=== PATIENT | male | born 1980 | race Two or more races ===

== ENCOUNTER 2016-09-12 10:15 | Inpatient (IN) | payer OTHER ==
[~2016-09-12] VITALS: Ht 167.6 cm; Wt 117.9 kg
[~2016-09-12 10:15] MED LIST: ALLA266C2 TP; BACL10TA PO; BACL20TA PO; Cadexomer Iodine TP; Gel Dressing TP; LACT1CAP72 PO; SERT25TA5 PO
[2016-09-12 10:58] LABS: EOSINOPHILS % (AUTO) 0.3 % (0.0-6.0)
[2016-09-12 11:03] LABS: BASOPHILS # (AUTO) 0.2 /CMM (0.0-0.2); BASOPHILS % (AUTO) 1.5 % (0.0-2.0); DIFF TOTAL % 100 %; HEMATOCRIT 47 % (39-51); HEMOGLOBIN 15.7 g/dL (13.5-17.5); LYMPHOCYTES # (AUTO) 1.3 /CMM (0.8-4.8); LYMPHOCYTES % (AUTO) 8.2 % (20.0-44.0); MEAN CORPUSCULAR HEMOGLOBIN 26 PG (26.0-33.0); MEAN CORPUSCULAR HGB CONC 33 g/dl (31.0-36.0); MEAN CORPUSCULAR VOLUME 79 fL (80-96); MONOCYTES # (AUTO) 1.2 /CMM (0.1-1.30); MONOCYTES % (AUTO) 7.7 % (2.0-12.0); NEUTROPHILS # (AUTO) 13.1 /CMM (1.8-8.9); NEUTROPHILS % (AUTO) 82.3 % (43.0-81.0); PLATELET COUNT (AUTO) 482 /CMM (150-450); RED BLOOD CELL COUNT(AUTO) 5.96 MIL/uL (4.5-6.0); WHITE BLOOD COUNT (AUTO) 15.8 K/uL (4.3-11.0)
[2016-09-12 11:07] LABS: CALCIUM, SERUM 8.6 mg/dL (8.5-10.1)
[2016-09-12] MEDS ORDERED: IV SET PRIMARY PUMP SET 1 EA INFUS.SET MC ONE ×2 (12:53→15:54)
[2016-09-12] MEDS ORDERED: IV NS 0.9% 1,000 ML ONE (12:53)
[2016-09-12] MEDS ORDERED: IV NS 0.9% 1,000 ML BAG IV ONE (13:00)
[2016-09-12] MEDS ORDERED: IV NS 0.9% 1,000 ML IV PRN ×2 (13:37→13:40)
[2016-09-12] MEDS ORDERED: MAGNESIUM HYDROXIDE 30 ML UDC PO PRN (14:00)
[2016-09-12] MEDS ORDERED: MAG HYDROX/AL HYDROX/SIMETH 30 ML UDC PO PRN (14:00)
[2016-09-12] MEDS ORDERED: ONDANSETRON HCL/PF 4 MG/2 ML VIAL IVP PRN (14:00)
[2016-09-12] MEDS ORDERED: ACETAMINOPHEN 325 MG TABLET PO PRN (14:00)
[2016-09-12] MEDS ORDERED: Z GUARD REMEDY 2 OZ OINT TP PRN ×2 (14:00)
[2016-09-12] MEDS ORDERED: ZOLPIDEM TARTRATE 5 MG TABLET PO PRN (14:00)
[2016-09-12] MEDS ORDERED: HYDROCODONE/APAP 5/325MG 1 EACH TABLET PO PRN (14:00)
[2016-09-12 14:03] LABS: LYMPHOCYTES % (MANUAL) 6 % (16-48); PLATELET ESTIMATE INCREASED; RBC MORPHOLOGY COMMENT NORMAL RBC MORPH
[2016-09-12] MEDS ORDERED: HYDROMORPHONE 1 MG/1 ML DISP.SYRIN IV PRN (14:30)
[2016-09-12] MEDS: ENOXAPARIN SODIUM 40 MG/0.4 ML DISP.SYRIN SQ SCH (15:00)
[2016-09-12] MEDS ORDERED: VANCOMYCIN 1.5 GM in IV D5W 500 ML IV ONE (15:00)
[2016-09-12] MEDS ORDERED: FEE PK DOSING 1 MIN EA MC ONE (15:08)
[2016-09-12 16:00] VITALS: BP 122/84
[2016-09-12] MEDS ORDERED: SECONDARY IV SET 1 EA INFUS.SET MC ONE (16:07)
[2016-09-12] MEDS: BACLOFEN (10 MG) 10 MG TABLET PO SCH (17:00)
[2016-09-12] MEDS: LACTOBACILLUS RHAMNOSUS GG 1 EACH CAP.SPRINK PO SCH (17:00)
[2016-09-12 20:00] VITALS: BP 130/86
[2016-09-13] MEDS ORDERED: PANTOPRAZOLE 40 MG TABLET.DR PO SCH (07:30)
[2016-09-13 07:39] LABS: BASOPHILS # (AUTO) 0.1 /CMM (0.0-0.2); BASOPHILS % (AUTO) 0.7 % (0.0-2.0); DIFF TOTAL % 100 %; EOSINOPHILS # (AUTO) 0.3 /CMM (0.0-0.7); EOSINOPHILS % (AUTO) 1.9 % (0.0-6.0); HEMATOCRIT 45 % (39-51); HEMOGLOBIN 14.7 g/dL (13.5-17.5); LYMPHOCYTES # (AUTO) 1.9 /CMM (0.8-4.8); LYMPHOCYTES % (AUTO) 14.3 % (20.0-44.0); MEAN CORPUSCULAR HEMOGLOBIN 26 PG (26.0-33.0); MEAN CORPUSCULAR HGB CONC 33 g/dl (31.0-36.0); MEAN CORPUSCULAR VOLUME 80 fL (80-96); MONOCYTES # (AUTO) 0.9 /CMM (0.1-1.30); NEUTROPHILS # (AUTO) 10.2 /CMM (1.8-8.9); NEUTROPHILS % (AUTO) 76.1 % (43.0-81.0); PLATELET COUNT (AUTO) 442 /CMM (150-450); RED BLOOD CELL COUNT(AUTO) 5.55 MIL/uL (4.5-6.0); WHITE BLOOD COUNT (AUTO) 13.4 K/uL (4.3-11.0)
[2016-09-13 08:00] VITALS: BP 123/73
[2016-09-13] MEDS ORDERED: SERTRALINE HCL 25 MG TABLET PO SCH (09:00)
[2016-09-13] MEDS: BACLOFEN (10 MG) 10 MG TABLET PO SCH ×2 (09:50→13:00)
[2016-09-13] MEDS: LACTOBACILLUS RHAMNOSUS GG 1 EACH CAP.SPRINK PO SCH (09:50)
[2016-09-13] MEDS: ENOXAPARIN SODIUM 40 MG/0.4 ML DISP.SYRIN SQ SCH (09:54)
[2016-09-13] MEDS ORDERED: CADEXOMER IODINE 40 GM TUBE TP SCH (10:00)
[2016-09-13] MEDS: VANCOMYCIN 1 GM in IV D5W 250 ML IV SCH ×4 (10:27→16:00)
[2016-09-13 11:17] LABS: CALCIUM, SERUM 8.7 mg/dL (8.5-10.1); CREATININE 0.8 mg/dL (0.6-1.3); PHOSPHORUS 3.4 mg/dL (2.5-4.9); POTASSIUM 4.5 mmol/L (3.5-5.1)
== END 2016-09-13 16:51 | disposition left against medical advice (07) | DRG 720 ==
LOC: ER 10:28 → MED 14:12
PROVIDERS: ADMIT Internal Medicine; ATTEND Internal Medicine
DX: A41.9 Sepsis, unspecified organism (principal); D68.59 Other primary thrombophilia; G82.20 Paraplegia, unspecified; E44.0 Moderate protein-calorie malnutrition; Z68.41 Body mass index [BMI] 40.0-44.9, adult; E66.01 Morbid (severe) obesity due to excess calories; G62.9 Polyneuropathy, unspecified; N31.9 Neuromuscular dysfunction of bladder, unspecified; E87.6 Hypokalemia; F25.9 Schizoaffective disorder, unspecified; M19.90 Unspecified osteoarthritis, unspecified site; Z87.440 Personal history of urinary (tract) infections; Z93.3 Colostomy status; Y24.9XXS Unspecified firearm discharge, undetermined intent, sequela; F19.10 Other psychoactive substance abuse, uncomplicated; L03.116 Cellulitis of left lower limb; L03.115 Cellulitis of right lower limb; S91.302A Unspecified open wound, left foot, initial encounter; S91.301A Unspecified open wound, right foot, initial encounter; X58.XXXA Exposure to other specified factors, initial encounter; Y93.9 Activity, unspecified; Y92.009 Unspecified place in unspecified non-institutional (private) residence as the place of occurrence of the external cause; Y99.9 Unspecified external cause status; M86.8X7 Other osteomyelitis, ankle and foot
CPT/HCPCS: 36415; 73620-TC; 80048-TC; 83605-TC; 83735-TC; 84100-TC; 85025-TC; 87040-TC; 87081-TC; A4606; A6402; A6407; J1650; J3370; J7030; J7060; Z7610

== ENCOUNTER 2016-09-21 17:04 | Emergency (ER) | payer OTHER ==
[~2016-09-21] VITALS: Ht 182.9 cm; Wt 124.7 kg
[~2016-09-21 17:04] MED LIST changes: -BACL10TA PO
[2016-09-21 17:45] LABS: BASOPHILS # (AUTO) 0.2 /CMM (0.0-0.2); BASOPHILS % (AUTO) 2.7 % (0.0-2.0); DIFF TOTAL % 100 %; EOSINOPHILS # (AUTO) 0.3 /CMM (0.0-0.7); EOSINOPHILS % (AUTO) 3.3 % (0.0-6.0); HEMATOCRIT 39 % (39-51); HEMOGLOBIN 12.2 g/dL (13.5-17.5); LYMPHOCYTES # (AUTO) 1.1 /CMM (0.8-4.8); LYMPHOCYTES % (AUTO) 13.1 % (20.0-44.0); MEAN CORPUSCULAR HEMOGLOBIN 26 PG (26.0-33.0); MEAN CORPUSCULAR HGB CONC 31 g/dl (31.0-36.0); MEAN CORPUSCULAR VOLUME 82 fL (80-96); MONOCYTES # (AUTO) 0.7 /CMM (0.1-1.30); MONOCYTES % (AUTO) 8.2 % (2.0-12.0); NEUTROPHILS # (AUTO) 6.3 /CMM (1.8-8.9); NEUTROPHILS % (AUTO) 72.7 % (43.0-81.0); PLATELET COUNT (AUTO) 476 /CMM (150-450); RED BLOOD CELL COUNT(AUTO) 4.75 MIL/uL (4.5-6.0); WHITE BLOOD COUNT (AUTO) 8.6 K/uL (4.3-11.0)
[2016-09-21 17:54] LABS: CALCIUM, SERUM 7.9 mg/dL (8.5-10.1); CREATININE 0.6 mg/dL (0.6-1.3); POTASSIUM 3.5 mmol/L (3.5-5.1)
[2016-09-21] MEDS ORDERED: ONDANSETRON HCL/PF 4 MG/2 ML VIAL IV ONE (18:00)
[2016-09-21] MEDS ORDERED: MORPHINE SULFATE INJ 2 MG/ML DISP.SYRIN IV ONE (18:00)
[2016-09-21] MEDS ORDERED: MORPHINE SULFATE INJ 4 MG/ML DISP.SYRIN ONE (18:42)
[2016-09-21] MEDS ORDERED: ONDANSETRON HCL/PF 4 MG/2 ML VIAL ONE (18:42)
[2016-09-21 20:55] VITALS: BP 150/79
== END 2016-09-21 20:55 | disposition home or self-care (01) ==
LOC: ER 17:05
DX: S91.302A Unspecified open wound, left foot, initial encounter (principal); S91.301A Unspecified open wound, right foot, initial encounter; G82.20 Paraplegia, unspecified; F25.9 Schizoaffective disorder, unspecified; N31.9 Neuromuscular dysfunction of bladder, unspecified; L89.629 Pressure ulcer of left heel, unspecified stage; L89.619 Pressure ulcer of right heel, unspecified stage; Z93.3 Colostomy status
CPT/HCPCS: 36415; 73630 ×2; 80048; 85025; 85652; 96374; 96375; 99285; A4606; J2270; J2405; Z7610

== ENCOUNTER 2016-10-17 15:00 | Emergency (ER) | payer OTHER ==
[~2016-10-17] VITALS: Ht 177.8 cm; Wt 113.4 kg
[2016-10-17 15:45] LABS: BASOPHILS % (AUTO) 0.2 % (0.0-2.0); DIFF TOTAL % 100 %; EOSINOPHILS # (AUTO) 0.1 /CMM (0.0-0.7); EOSINOPHILS % (AUTO) 0.6 % (0.0-6.0); HEMATOCRIT 44 % (39-51); HEMOGLOBIN 14.4 g/dL (13.5-17.5); MEAN CORPUSCULAR HEMOGLOBIN 26 PG (26.0-33.0); MEAN CORPUSCULAR HGB CONC 33 g/dl (31.0-36.0); MEAN CORPUSCULAR VOLUME 79 fL (80-96); MONOCYTES # (AUTO) 0.6 /CMM (0.1-1.30); MONOCYTES % (AUTO) 3.8 % (2.0-12.0); NEUTROPHILS # (AUTO) 12.8 /CMM (1.8-8.9); NEUTROPHILS % (AUTO) 88.4 % (43.0-81.0); PLATELET COUNT (AUTO) 739 /CMM (150-450); RED BLOOD CELL COUNT(AUTO) 5.55 MIL/uL (4.5-6.0); WHITE BLOOD COUNT (AUTO) 14.5 K/uL (4.3-11.0)
[2016-10-17 16:00] LABS: ANION GAP 17 (5-14); CALCIUM, SERUM 8.9 mg/dL (8.5-10.1); CARBON DIOXIDE 25 mmol/L (21-32); CHLORIDE 101 mmol/L (98-107); GFR 85 mL/min (>60); GLUCOSE 106 mg/dL (74-106); POTASSIUM 3.7 mmol/L (3.5-5.1); SODIUM SERUM 139 mmol/L (136-145); UREA NITROGEN, BLOOD 17 mg/dL (7-18)
[2016-10-17 16:16] LABS: ALANINE AMINOTRANSFERASE 29 U/L (12-78); ALBUMIN 3.5 g/dL (3.4-5.0); ASPARTATE AMINOTRANSFERASE 39 U/L (15-37); BILIRUBIN,DIRECT 0.1 mg/dL (0.0-0.2); BILIRUBIN,TOTAL 0.7 mg/dL (0.2-1.0); INDIRECT BILIRUBIN 0.6 mg/dL (0.0-1.1); TOTAL PROTEIN, SERUM 9.3 g/dL (6.4-8.2)
[2016-10-17 16:20] LABS: ACETAMINOPHEN 0 ug/ml (10-30); SALICYLATE 1.5 mg/dL (2.8-20.0)
[2016-10-17 16:28] LABS: BASOPHILS % (MANUAL) 0 % (0.0-2.0); EOSINOPHILS % (MANUAL) 0 % (0-4); LYMPHOCYTES % (MANUAL) 9 % (16-48)
[2016-10-17 16:29] LABS: ANISOCYTOSIS 1+; HYPOCHROMASIA 1+; PLATELET ESTIMATE INCREASED; RBC MORPHOLOGY COMMENT NORMAL RBC MORPH
[2016-10-17] MEDS ORDERED: LORAZEPAM INJ 2 MG/ML VIAL IV ONE ×2 (16:30→18:00)
[2016-10-17] MEDS ORDERED: LORAZEPAM INJ 2 MG/ML VIAL ONE ×2 (16:47→17:43)
[2016-10-17] MEDS ORDERED: LORAZEPAM INJ 2 MG/ML VIAL IVP ONE (17:00)
[2016-10-17] MEDS ORDERED: IV NS 0.9% 1,000 ML ONE (17:43)
[2016-10-17] MEDS ORDERED: IV SET PRIMARY 1 EA INFUS.SET MC ONE (17:43)
[2016-10-17] MEDS ORDERED: IV NS 0.9% 1,000 ML BAG IV ONE (18:00)
[2016-10-17 19:34] LABS: KETONES,URINE 40 (NEGATIVE); LEUKOCYTE ESTERASE ,URINE Small (NEGATIVE); PH,URINE 5.5 (5.0-8.0)
[2016-10-17 19:40] LABS: CANNABINOID, URINE NEGATIVE (NEGATIVE); PHENCYCLIDINE SCREEN,URINE NEGATIVE (NEGATIVE)
[2016-10-17 19:41] LABS: ADD UA MICROSCOPIC YES
[2016-10-17 19:50] LABS: ADD URINE CULTURE YES
[2016-10-18 10:35] VITALS: BP 138/78
== END 2016-10-18 10:36 | disposition home or self-care (01) ==
LOC: ER 15:01
DX: F10.129 Alcohol abuse with intoxication, unspecified (principal); R31.29 Other microscopic hematuria; F15.10 Other stimulant abuse, uncomplicated; D72.829 Elevated white blood cell count, unspecified; G82.20 Paraplegia, unspecified; Z93.3 Colostomy status
CPT/HCPCS: 36415; 80048-TC; 80076-TC; 80305; 81000-TC; 85025-TC; 87086-TC; A4606; G6038-TC; G6039-TC; G6040-TC; J2060; J7030; Z7610

== ENCOUNTER 2016-10-22 14:45 | Inpatient (IN) | payer OTHER ==
[~2016-10-22] VITALS: Ht 180.3 cm; Wt 90.7 kg
[2016-10-22 14:59] LABS: BASOPHILS # (AUTO) 0.5 /CMM (0.0-0.2); BASOPHILS % (AUTO) 4.7 % (0.0-2.0); DIFF TOTAL % 100 %; EOSINOPHILS # (AUTO) 0.1 /CMM (0.0-0.7); EOSINOPHILS % (AUTO) 0.7 % (0.0-6.0); HEMATOCRIT 39 % (39-51); HEMOGLOBIN 12.2 g/dL (13.5-17.5); LYMPHOCYTES # (AUTO) 1.8 /CMM (0.8-4.8); LYMPHOCYTES % (AUTO) 15.6 % (20.0-44.0); MEAN CORPUSCULAR HEMOGLOBIN 25 PG (26.0-33.0); MEAN CORPUSCULAR HGB CONC 32 g/dl (31.0-36.0); MEAN CORPUSCULAR VOLUME 80 fL (80-96); MONOCYTES % (AUTO) 8.3 % (2.0-12.0); NEUTROPHILS # (AUTO) 8.3 /CMM (1.8-8.9); NEUTROPHILS % (AUTO) 70.7 % (43.0-81.0); PLATELET COUNT (AUTO) 630 /CMM (150-450); RED BLOOD CELL COUNT(AUTO) 4.84 MIL/uL (4.5-6.0); WHITE BLOOD COUNT (AUTO) 11.7 K/uL (4.3-11.0)
[2016-10-22] MEDS ORDERED: LORAZEPAM INJ 2 MG/ML VIAL IVP ONE (15:00)
[2016-10-22] MEDS ORDERED: IV NS 0.9% 1,000 ML BAG IV ONE (15:00)
[2016-10-22 15:09] LABS: ANION GAP 15 (5-14); CALCIUM, SERUM 8.7 mg/dL (8.5-10.1); CARBON DIOXIDE 25 mmol/L (21-32); CHLORIDE 103 mmol/L (98-107); CREATININE 0.6 mg/dL (0.6-1.3); GFR 153 mL/min (>60); GLUCOSE 120 mg/dL (74-106); POTASSIUM 3.4 mmol/L (3.5-5.1); SODIUM SERUM 140 mmol/L (136-145); UREA NITROGEN, BLOOD 6 mg/dL (7-18)
[2016-10-22] MEDS ORDERED: LORAZEPAM INJ 2 MG/ML VIAL ONE ×2 (15:52→19:04)
[2016-10-22] MEDS ORDERED: IV SET PRIMARY 1 EA INFUS.SET MC ONE (15:52)
[2016-10-22] MEDS ORDERED: IV NS 0.9% 1,000 ML ONE (15:52)
[2016-10-22] MEDS ORDERED: ACETAMINOPHEN ES 500 MG TABLET PO ONE (16:30)
[2016-10-22 17:28] LABS: KETONES,URINE Trace (NEGATIVE); LEUKOCYTE ESTERASE ,URINE Trace (NEGATIVE); PH,URINE 6.5 (5.0-8.0)
[2016-10-22 17:34] LABS: ADD UA MICROSCOPIC YES; CANNABINOID, URINE NEGATIVE (NEGATIVE); PHENCYCLIDINE SCREEN,URINE NEGATIVE (NEGATIVE)
[2016-10-22 17:37] LABS: ADD URINE CULTURE YES
[2016-10-22] MEDS ORDERED: CEFTRIAXONE 1 G in IV D5W 50 ML IV ONE (18:00)
[2016-10-22] MEDS ORDERED: CEFTRIAXONE 1GM BAG (ER ONLY) 50 ML IV ONE (18:08)
[2016-10-22] MEDS ORDERED: IV SET PRIMARY PUMP SET 1 EA INFUS.SET MC ONE ×2 (18:08→22:47)
[2016-10-22] MEDS ORDERED: SERT25TA PO (18:49)
[2016-10-22] MEDS ORDERED: CIPR500T5 PO (18:49)
[2016-10-22] MEDS ORDERED: LACT1CAP72 PO (18:49)
[2016-10-22] MEDS ORDERED: LORAZEPAM INJ 2 MG/ML VIAL IV ONE (19:00)
[2016-10-22] MEDS ORDERED: Z GUARD REMEDY 2 OZ OINT TP PRN (20:00)
[2016-10-22] MEDS ORDERED: ONDANSETRON HCL/PF 4 MG/2 ML VIAL IVP PRN (20:00)
[2016-10-22] MEDS ORDERED: MAGNESIUM HYDROXIDE 30 ML UDC PO PRN (20:00)
[2016-10-22] MEDS ORDERED: MAG HYDROX/AL HYDROX/SIMETH 30 ML UDC PO PRN (20:00)
[2016-10-22] MEDS ORDERED: ENOXAPARIN SODIUM 30 MG/0.3 ML DISP.SYRIN SQ SCH (20:00)
[2016-10-22] MEDS ORDERED: VANCOMYCIN 1 GM in IV D5W 250 ML IV ONE (20:00)
[2016-10-22 21:00] VITALS: BP 149/59
[2016-10-22] MEDS ORDERED: LORAZEPAM INJ 2 MG/ML VIAL IV PRN (21:00)
[2016-10-22] MEDS ORDERED: VANCOMYCIN 1.25 GM in IV D5W 500 ML IV SCH (21:00)
[2016-10-22] MEDS ORDERED: POTASSIUM CHLORIDE 20 MEQ POWDER PACKET PO ONE (21:00)
[2016-10-22] MEDS ORDERED: FEE PK DOSING 1 MIN EA MC ONE (21:49)
[2016-10-22] MEDS ORDERED: VANCOMYCIN 1 GM in IV D5W 250 ML IV SCH (22:00)
[2016-10-22] MEDS ORDERED: IV NS 0.9% 250 ML IV ONE (22:47)
[2016-10-22] MEDS ORDERED: SECONDARY IV SET 1 EA INFUS.SET MC ONE (22:47)
[2016-10-22] MEDS: MEROPENEM 1 G in IV NS 0.9% 100 ML IV SCH (22:58)
[2016-10-22] MEDS: IV NS 0.9% 1,000 ML IV PRN (22:58)
[2016-10-22] MEDS: ENOXAPARIN SODIUM 40 MG/0.4 ML DISP.SYRIN SQ SCH (23:00)
[2016-10-23] MEDS ORDERED: SECONDARY IV SET 1 EA INFUS.SET MC ONE ×2 (01:21→13:39)
[2016-10-23] MEDS: MEROPENEM 1 G in IV NS 0.9% 100 ML IV SCH ×3 (04:29→23:09)
[2016-10-23 08:00] VITALS: BP 93/62
[2016-10-23 08:00] LABS: BASOPHILS # (AUTO) 0.1 /CMM (0.0-0.2); BASOPHILS % (AUTO) 0.6 % (0.0-2.0); DIFF TOTAL % 100 %; EOSINOPHILS # (AUTO) 0.3 /CMM (0.0-0.7); EOSINOPHILS % (AUTO) 3.4 % (0.0-6.0); HEMATOCRIT 35 % (39-51); HEMOGLOBIN 11.6 g/dL (13.5-17.5); LYMPHOCYTES # (AUTO) 1.6 /CMM (0.8-4.8); LYMPHOCYTES % (AUTO) 16.5 % (20.0-44.0); MEAN CORPUSCULAR HEMOGLOBIN 27 PG (26.0-33.0); MEAN CORPUSCULAR HGB CONC 33 g/dl (31.0-36.0); MEAN CORPUSCULAR VOLUME 80 fL (80-96); MONOCYTES # (AUTO) 0.9 /CMM (0.1-1.30); MONOCYTES % (AUTO) 9.3 % (2.0-12.0); NEUTROPHILS # (AUTO) 6.7 /CMM (1.8-8.9); NEUTROPHILS % (AUTO) 70.2 % (43.0-81.0); PLATELET COUNT (AUTO) 522 /CMM (150-450); WHITE BLOOD COUNT (AUTO) 9.5 K/uL (4.3-11.0)
[2016-10-23 08:16] LABS: CALCIUM, SERUM 8.1 mg/dL (8.5-10.1); CREATININE 0.7 mg/dL (0.6-1.3); PHOSPHORUS 3.7 mg/dL (2.5-4.9); POTASSIUM 3.3 mmol/L (3.5-5.1)
[2016-10-23] MEDS: LACTOBACILLUS RHAMNOSUS GG 1 EACH CAP.SPRINK PO SCH ×2 (09:41→17:24)
[2016-10-23] MEDS: SERTRALINE HCL 25 MG TABLET PO SCH (09:41)
[2016-10-23] MEDS: PANTOPRAZOLE 40 MG TABLET.DR PO SCH (09:41)
[2016-10-23] MEDS: VANCOMYCIN 1 GM in IV D5W 250 ML IV SCH ×2 (10:19→17:24)
[2016-10-23] MEDS ORDERED: POTASSIUM CHLORIDE 20 MEQ POWDER PACKET GT ONE (12:00)
[2016-10-23] MEDS: HYDROGEL DRESSING 90 GM TUBE TP SCH (13:20)
[2016-10-23] MEDS: DAKINS QUARTER STRENGTH (0.125%) 480 ML BOTTLE TOP SCH (13:20)
[2016-10-23] MEDS: IV NS 0.9% 1,000 ML IV PRN (15:05)
[2016-10-23 16:08] VITALS: BP 135/72
[2016-10-23] MEDS: HYDROCODONE/APAP 5/325MG 1 EACH TABLET PO PRN (17:29)
[2016-10-23 20:32] VITALS: BP 108/70
[2016-10-23] MEDS: ENOXAPARIN SODIUM 40 MG/0.4 ML DISP.SYRIN SQ SCH (23:10)
[2016-10-24] MEDS: ZOLPIDEM TARTRATE 5 MG TABLET PO PRN ×2 (00:17→21:28)
[2016-10-24] MEDS: VANCOMYCIN 1 GM in IV D5W 250 ML IV SCH ×2 (02:48→10:31)
[2016-10-24] MEDS: MEROPENEM 1 G in IV NS 0.9% 100 ML IV SCH ×3 (06:20→21:26)
[2016-10-24] MEDS: ACETAMINOPHEN 325 MG TABLET PO PRN (06:20)
[2016-10-24 06:52] LABS: BASOPHILS # (AUTO) 0.1 /CMM (0.0-0.2); DIFF TOTAL % 100 %; EOSINOPHILS # (AUTO) 0.4 /CMM (0.0-0.7); EOSINOPHILS % (AUTO) 6.5 % (0.0-6.0); HEMATOCRIT 34 % (39-51); HEMOGLOBIN 11.1 g/dL (13.5-17.5); LYMPHOCYTES # (AUTO) 1.5 /CMM (0.8-4.8); MEAN CORPUSCULAR HEMOGLOBIN 27 PG (26.0-33.0); MEAN CORPUSCULAR HGB CONC 33 g/dl (31.0-36.0); MEAN CORPUSCULAR VOLUME 80 fL (80-96); MONOCYTES # (AUTO) 0.6 /CMM (0.1-1.30); MONOCYTES % (AUTO) 9.5 % (2.0-12.0); NEUTROPHILS # (AUTO) 3.5 /CMM (1.8-8.9); PLATELET COUNT (AUTO) 455 /CMM (150-450); RED BLOOD CELL COUNT(AUTO) 4.18 MIL/uL (4.5-6.0)
[2016-10-24] MEDS ORDERED: IV NS 0.9% 1,000 ML ONE (06:55)
[2016-10-24 06:58] LABS: CALCIUM, SERUM 8.2 mg/dL (8.5-10.1); CREATININE 0.5 mg/dL (0.6-1.3); POTASSIUM 3.7 mmol/L (3.5-5.1)
[2016-10-24] MEDS: IV NS 0.9% 1,000 ML IV PRN (07:04)
[2016-10-24 08:00] VITALS: BP 109/61
[2016-10-24] MEDS: SERTRALINE HCL 25 MG TABLET PO SCH (08:46)
[2016-10-24] MEDS: LACTOBACILLUS RHAMNOSUS GG 1 EACH CAP.SPRINK PO SCH ×2 (08:46→17:46)
[2016-10-24] MEDS: PANTOPRAZOLE 40 MG TABLET.DR PO SCH (08:46)
[2016-10-24] MEDS: DAKINS QUARTER STRENGTH (0.125%) 480 ML BOTTLE TOP SCH (08:47)
[2016-10-24] MEDS: HYDROGEL DRESSING 90 GM TUBE TP SCH (08:47)
[2016-10-24 16:00] VITALS: BP 123/69
[2016-10-24] MEDS: VANCOMYCIN 1.25 GM in IV D5W 500 ML IV SCH (17:48)
[2016-10-24 20:00] VITALS: BP 126/58
[2016-10-24] MEDS: ENOXAPARIN SODIUM 40 MG/0.4 ML DISP.SYRIN SQ SCH (21:27)
[2016-10-25] MEDS: VANCOMYCIN 1.25 GM in IV D5W 500 ML IV SCH ×3 (01:22→18:58)
[2016-10-25] MEDS: IV NS 0.9% 1,000 ML IV PRN ×2 (01:24→22:32)
[2016-10-25] MEDS: ACETAMINOPHEN 325 MG TABLET PO PRN ×2 (04:11→13:13)
[2016-10-25] MEDS: MEROPENEM 1 G in IV NS 0.9% 100 ML IV SCH ×3 (04:11→20:36)
[2016-10-25 07:37] LABS: CALCIUM, SERUM 8.3 mg/dL (8.5-10.1); CREATININE 0.6 mg/dL (0.6-1.3); POTASSIUM 4.1 mmol/L (3.5-5.1)
[2016-10-25 08:00] VITALS: BP 115/64
[2016-10-25] MEDS: LACTOBACILLUS RHAMNOSUS GG 1 EACH CAP.SPRINK PO SCH ×2 (08:33→17:59)
[2016-10-25] MEDS: PANTOPRAZOLE 40 MG TABLET.DR PO SCH (08:33)
[2016-10-25] MEDS: SERTRALINE HCL 25 MG TABLET PO SCH (08:33)
[2016-10-25] MEDS: DAKINS QUARTER STRENGTH (0.125%) 480 ML BOTTLE TOP SCH (08:35)
[2016-10-25] MEDS: HYDROGEL DRESSING 90 GM TUBE TP SCH (08:35)
[2016-10-25] MEDS ORDERED: AMOX-428 PO (09:03)
[2016-10-25 16:00] VITALS: BP_SYST 123
[2016-10-25] MEDS: BACLOFEN (10 MG) 10 MG TABLET PO SCH (17:59)
[2016-10-25 20:00] VITALS: BP 124/75
[2016-10-25] MEDS: ENOXAPARIN SODIUM 40 MG/0.4 ML DISP.SYRIN SQ SCH (20:37)
[2016-10-25] MEDS: ZOLPIDEM TARTRATE 5 MG TABLET PO PRN (22:32)
[2016-10-26] MEDS: VANCOMYCIN 1.25 GM in IV D5W 500 ML IV SCH ×2 (03:03→10:01)
[2016-10-26] MEDS: MEROPENEM 1 G in IV NS 0.9% 100 ML IV SCH ×3 (04:43→21:01)
[2016-10-26 08:00] VITALS: BP 120/67
[2016-10-26 08:06] LABS: CALCIUM, SERUM 8.1 mg/dL (8.5-10.1); CREATININE 0.6 mg/dL (0.6-1.3)
[2016-10-26] MEDS: SERTRALINE HCL 25 MG TABLET PO SCH (08:11)
[2016-10-26] MEDS: LACTOBACILLUS RHAMNOSUS GG 1 EACH CAP.SPRINK PO SCH ×2 (08:11→16:29)
[2016-10-26] MEDS: PANTOPRAZOLE 40 MG TABLET.DR PO SCH (08:11)
[2016-10-26] MEDS: BACLOFEN (10 MG) 10 MG TABLET PO SCH ×3 (08:11→16:29)
[2016-10-26] MEDS: DAKINS QUARTER STRENGTH (0.125%) 480 ML BOTTLE TOP SCH (08:14)
[2016-10-26] MEDS: HYDROGEL DRESSING 90 GM TUBE TP SCH (08:14)
[2016-10-26] MEDS: ACETAMINOPHEN 325 MG TABLET PO PRN (10:28)
[2016-10-26 16:00] VITALS: BP 110/56
[2016-10-26 20:00] VITALS: BP 119/63
[2016-10-26 20:34] VITALS: BP 119/63
[2016-10-26] MEDS: ENOXAPARIN SODIUM 40 MG/0.4 ML DISP.SYRIN SQ SCH (21:02)
[2016-10-26] MEDS: HYDROCODONE/APAP 5/325MG 1 EACH TABLET PO PRN (21:26)
[2016-10-26] MEDS: ZOLPIDEM TARTRATE 5 MG TABLET PO PRN (21:58)
[2016-10-27] MEDS: IV NS 0.9% 1,000 ML IV PRN ×2 (02:22→17:10)
[2016-10-27] MEDS: MEROPENEM 1 G in IV NS 0.9% 100 ML IV SCH ×3 (05:43→20:56)
[2016-10-27 07:19] LABS: CALCIUM, SERUM 8.4 mg/dL (8.5-10.1); CREATININE 0.6 mg/dL (0.6-1.3); POTASSIUM 4.1 mmol/L (3.5-5.1)
[2016-10-27 08:00] VITALS: BP 110/69
[2016-10-27] MEDS: LACTOBACILLUS RHAMNOSUS GG 1 EACH CAP.SPRINK PO SCH ×2 (08:14→16:17)
[2016-10-27] MEDS: PANTOPRAZOLE 40 MG TABLET.DR PO SCH (08:14)
[2016-10-27] MEDS: BACLOFEN (10 MG) 10 MG TABLET PO SCH ×3 (08:14→16:17)
[2016-10-27] MEDS: SERTRALINE HCL 25 MG TABLET PO SCH (08:15)
[2016-10-27] MEDS: VANCOMYCIN 1 GM in IV D5W 250 ML IV SCH ×2 (11:11→17:09)
[2016-10-27] MEDS: ACETAMINOPHEN 325 MG TABLET PO PRN (13:34)
[2016-10-27] MEDS: DAKINS QUARTER STRENGTH (0.125%) 480 ML BOTTLE TOP SCH (15:41)
[2016-10-27] MEDS: HYDROGEL DRESSING 90 GM TUBE TP SCH (15:42)
[2016-10-27 16:00] VITALS: BP 109/64
[2016-10-27] MEDS ORDERED: BOOST PLUS FOOD-CHOCLATE 237 ML BOX PO SCH (17:00)
[2016-10-27] MEDS: HYDROCODONE/APAP 5/325MG 1 EACH TABLET PO PRN (17:09)
[2016-10-27 20:39] VITALS: BP 111/66
[2016-10-27] MEDS: ENOXAPARIN SODIUM 40 MG/0.4 ML DISP.SYRIN SQ SCH (21:02)
[2016-10-28] MEDS ORDERED: SECONDARY IV SET 1 EA INFUS.SET MC ONE (00:30)
[2016-10-28] MEDS: ZOLPIDEM TARTRATE 5 MG TABLET PO PRN ×2 (00:35→22:10)
[2016-10-28] MEDS: VANCOMYCIN 1 GM in IV D5W 250 ML IV SCH ×3 (02:57→17:35)
[2016-10-28] MEDS: MEROPENEM 1 G in IV NS 0.9% 100 ML IV SCH ×3 (05:43→21:59)
[2016-10-28 07:53] LABS: CALCIUM, SERUM 8.7 mg/dL (8.5-10.1); CREATININE 0.6 mg/dL (0.6-1.3); POTASSIUM 4.3 mmol/L (3.5-5.1)
[2016-10-28 08:00] VITALS: BP 108/69
[2016-10-28] MEDS: IV NS 0.9% 1,000 ML IV PRN (08:32)
[2016-10-28] MEDS: LACTOBACILLUS RHAMNOSUS GG 1 EACH CAP.SPRINK PO SCH ×2 (08:33→16:35)
[2016-10-28] MEDS: SERTRALINE HCL 25 MG TABLET PO SCH (08:33)
[2016-10-28] MEDS: PANTOPRAZOLE 40 MG TABLET.DR PO SCH (08:33)
[2016-10-28] MEDS: BACLOFEN (10 MG) 10 MG TABLET PO SCH ×3 (08:33→16:35)
[2016-10-28] MEDS: HYDROGEL DRESSING 90 GM TUBE TP SCH (08:39)
[2016-10-28] MEDS: DAKINS QUARTER STRENGTH (0.125%) 480 ML BOTTLE TOP SCH (08:40)
[2016-10-28] MEDS: ACETAMINOPHEN 325 MG TABLET PO PRN (12:26)
[2016-10-28 16:00] VITALS: BP 115/72
[2016-10-28 20:00] VITALS: BP 123/71
[2016-10-28] MEDS: ENOXAPARIN SODIUM 40 MG/0.4 ML DISP.SYRIN SQ SCH (22:00)
[2016-10-29] MEDS: VANCOMYCIN 1.25 GM in IV D5W 500 ML IV SCH ×3 (01:59→18:18)
[2016-10-29] MEDS: IV NS 0.9% 1,000 ML IV PRN (02:10)
[2016-10-29] MEDS: MEROPENEM 1 G in IV NS 0.9% 100 ML IV SCH ×2 (05:14→12:55)
[2016-10-29 07:03] LABS: CALCIUM, SERUM 8.5 mg/dL (8.5-10.1); CREATININE 0.6 mg/dL (0.6-1.3); POTASSIUM 4.2 mmol/L (3.5-5.1)
[2016-10-29 08:00] VITALS: BP 117/72
[2016-10-29] MEDS: SERTRALINE HCL 25 MG TABLET PO SCH (08:04)
[2016-10-29] MEDS: PANTOPRAZOLE 40 MG TABLET.DR PO SCH (08:04)
[2016-10-29] MEDS: LACTOBACILLUS RHAMNOSUS GG 1 EACH CAP.SPRINK PO SCH ×2 (08:04→16:13)
[2016-10-29] MEDS: BACLOFEN (10 MG) 10 MG TABLET PO SCH ×3 (08:04→16:13)
[2016-10-29] MEDS: HYDROGEL DRESSING 90 GM TUBE TP SCH (08:05)
[2016-10-29] MEDS: DAKINS QUARTER STRENGTH (0.125%) 480 ML BOTTLE TOP SCH (08:06)
[2016-10-29] MEDS: ACETAMINOPHEN 325 MG TABLET PO PRN ×2 (09:57→20:34)
[2016-10-29 16:00] VITALS: BP 123/81
[2016-10-29 20:00] VITALS: BP 113/67
[2016-10-29 20:02] VITALS: BP 113/67
[2016-10-29] MEDS: ENOXAPARIN SODIUM 40 MG/0.4 ML DISP.SYRIN SQ SCH (20:34)
== END 2016-10-30 | disposition home or self-care (01) | DRG 344 ==
LOC: ER 14:48 → MED 20:01
PROVIDERS: ADMIT Nurse Practitioner Acute Care; ATTEND Nurse Practitioner Acute Care
DX: M86.8X6 Other osteomyelitis, lower leg (principal); L89.154 Pressure ulcer of sacral region, stage 4; G82.20 Paraplegia, unspecified; D68.59 Other primary thrombophilia; L03.115 Cellulitis of right lower limb; N39.0 Urinary tract infection, site not specified; L03.116 Cellulitis of left lower limb; F10.10 Alcohol abuse, uncomplicated; F15.10 Other stimulant abuse, uncomplicated; L97.529 Non-pressure chronic ulcer of other part of left foot with unspecified severity; G62.9 Polyneuropathy, unspecified; F17.210 Nicotine dependence, cigarettes, uncomplicated; E87.6 Hypokalemia; N31.9 Neuromuscular dysfunction of bladder, unspecified; Z93.3 Colostomy status; Z74.01 Bed confinement status; F25.9 Schizoaffective disorder, unspecified; D50.9 Iron deficiency anemia, unspecified; E66.9 Obesity, unspecified; M85.80 Other specified disorders of bone density and structure, unspecified site; Z87.440 Personal history of urinary (tract) infections; Z91.19 Patient's noncompliance with other medical treatment and regimen; Z99.3 Dependence on wheelchair; B96.1 Klebsiella pneumoniae [K. pneumoniae] as the cause of diseases classified elsewhere; B95.2 Enterococcus as the cause of diseases classified elsewhere
CPT/HCPCS: 36415; 71010-TC; 80048-TC; 80202-TC; 80305; 81000-TC; 83735-TC; 84100-TC; 85025-TC; 87081-TC; 87086-TC; 87186-TC; 93925-TC; A4217; A4606; A6248; A6253; A6402; A6403; A9503; G0480; J0696; J1650; J2060; J2185; J3370; J7030; J7050; J7060; Z7610

== ENCOUNTER 2017-03-26 08:48 | Inpatient (IN) | payer MEDICAID, OTHER ==
[~2017-03-26] VITALS: Ht 177.8 cm; Wt 123.8 kg
[~2017-03-26 08:48] MED LIST changes: -ALLA266C2 TP; +AMOX-428 PO; -BACL20TA PO; +CIPR500T5 PO; -Cadexomer Iodine TP; -Gel Dressing TP; +SERT25TA PO; -SERT25TA5 PO
--- NOTE | 2017-03-26 08:55 | NUR ---
PATIENT BIB [facility] C/O ABDOMINAL PAIN S/P ALCOHOL AND METH USE. PATIENT IS A/OX 4. BREATHING EVEN AND UNLABORED. PATIENT IS TACHYCARDIC. BLOOD PRESSURE WNL. SAFETY AND COMFORT MEASURES IN PLACE. AWAITING MD ORDERS.
--- NOTE | 2017-03-26 09:15 | NUR ---
NEW IV STARTED RIGHT AC, 20 G. BLOOD DRAWN AND SENT TO LAB.
[2017-03-26] MEDS ORDERED: IV SET PRIMARY 1 EA INFUS.SET MC ONE (09:19)
[2017-03-26] MEDS ORDERED: IV NS 0.9% 1,000 ML ONE (09:19)
--- NOTE | 2017-03-26 09:21 | NUR ---
GLASS INSPECTOR AT BEDSIDE.
[2017-03-26] MEDS ORDERED: ACETAMINOPHEN ES 500 MG TABLET ONE (09:22)
[2017-03-26 09:29] LABS: CALCIUM, SERUM 8.2 mg/dL (8.5-10.1); CARBON DIOXIDE 26 mmol/L (21-32); CHLORIDE 103 mmol/L (98-107); GLUCOSE 163 mg/dL (74-106); POTASSIUM 3.9 mmol/L (3.5-5.1); SODIUM SERUM 140 mmol/L (136-145); UREA NITROGEN, BLOOD 9 mg/dL (7-18)
[2017-03-26] MEDS ORDERED: ACETAMINOPHEN 325 MG TABLET PO ONE (09:30)
[2017-03-26] MEDS ORDERED: IV NS 0.9% 1,000 ML BAG IV ONE ×2 (09:30)
[2017-03-26] MEDS ORDERED: IV SET PRIMARY PUMP SET 1 EA INFUS.SET MC ONE (09:40)
[2017-03-26] MEDS ORDERED: SECONDARY IV SET 1 EA INFUS.SET MC ONE ×2 (09:40→17:56)
[2017-03-26 09:42] LABS: ALANINE AMINOTRANSFERASE 60 U/L (12-78); ALBUMIN 3.2 g/dL (3.4-5.0); ALCOHOL, BLOOD < 3 mg/dL (0-0); ALKALINE PHOSPHATASE 162 U/L (46-116); ASPARTATE AMINOTRANSFERASE 40 U/L (15-37); BILIRUBIN,DIRECT 0.1 mg/dL (0.0-0.2); BILIRUBIN,TOTAL 0.4 mg/dL (0.2-1.0); TOTAL PROTEIN, SERUM 9.4 g/dL (6.4-8.2)
[2017-03-26 09:56] LABS: BASOPHILS # (AUTO) 0.1 /CMM (0.0-0.2); BASOPHILS % (AUTO) 0.7 % (0.0-2.0); EOSINOPHILS % (AUTO) 0.1 % (0.0-6.0); HEMATOCRIT 42 % (39-51); HEMOGLOBIN 13.5 g/dL (13.5-17.5); LYMPHOCYTES # (AUTO) 1.4 /CMM (0.8-4.8); LYMPHOCYTES % (AUTO) 7.8 % (20.0-44.0); MEAN CORPUSCULAR HEMOGLOBIN 23 PG (26.0-33.0); MEAN CORPUSCULAR HGB CONC 32 g/dl (31.0-36.0); MEAN CORPUSCULAR VOLUME 72 fL (80-96); MONOCYTES # (AUTO) 1.3 /CMM (0.1-1.30); NEUTROPHILS # (AUTO) 15.1 /CMM (1.8-8.9); NEUTROPHILS % (AUTO) 84.4 % (43.0-81.0); PLATELET COUNT (AUTO) 630 /CMM (150-450); RDW COEFFICIENT OF VARIATION 23.6 (11.5-15.0)
[2017-03-26] MEDS ORDERED: VANCOMYCIN 1 GM in IV D5W 250 ML IV ONE ×2 (10:00→11:30)
[2017-03-26] MEDS ORDERED: PIPERACILLIN /TAZOBACTAM 3.375 G in IV D5W 50 ML IV ONE (10:00)
[2017-03-26 10:04] LABS: APPEARANCE,URINE CLOUDY (CLEAR); BILIRUBIN,URINE NEGATIVE (NEGATIVE); BLOOD, URINE 2+ Ery/uL (NEGATIVE); COLOR,URINE YELLOW (YELLOW); KETONES,URINE NEGATIVE (NEGATIVE); LEUKOCYTE ESTERASE ,URINE NEGATIVE (NEGATIVE); NITRITE, URINE POSITIVE (NEGATIVE); PH,URINE 5.5 (5.0-8.0); PROTEIN,URINE 2+ mg/dl (NEGATIVE); UGLUCOSE NEGATIVE (NEGATIVE); UROBILINOGEN,URINE 0.2 EU/dL (0.2)
[2017-03-26 10:13] LABS: LYMPHOCYTES % (MANUAL) 13 % (16-48); MONOCYTES % (MANUAL) 8 % (0-11.0); NEUTROPHILS % (MANUAL) 79 (42-76)
[2017-03-26 10:21] LABS: BACTERIA,URINE 2+ /HPF (None Seen); SQUAMOUS EPITHELIAL CELL,UR Few /HPF (None Seen)
[2017-03-26 11:00] VITALS: BP 135/82
--- NOTE | 2017-03-26 11:00 | NUR ---
RN ADMITTING NOTES: REC'D PT VIA GURNEY ACCOMPANIED BY BUSINESS LEADER SAMI AND KATIA, NOT IN ANY FORM OF DISTRESS, A/OX3, DENIES ANY PAIN/ DISCOMFORT. PT ON ROOM AIR, SATURATING AT 99%, NO SOB. ON TELEMONITOR, ST W/ HR 128 BPM. HAS 2 IV LINES: R AC G20 AND L AC G18 W/ BOTH NS 1L RUNNING FAST DRIP, NO SIGNS OF INFECTION/ INFILTRATION NOTED. INITIAL WOUND ASSESSMENT DONE, PICTURES TAKEN AND DOCUMENTED ON CHART. PT IS PARAPLEGIC. HAS COLOSTOMY ON LLQ OF THE ABDOMEN, BAG CHANGED. PT HAS FC PATENT & INTACT. PT ORIENTED TO ROOM. PROVIDED COMFORT & SAFETY MEASURES. BED KEPT LOW & IN LOCKED POSITION. CALL LIGHT PLACED W/IN REACHED. WILL CLOSELY MONITOR FOR SEPSIS CONDITION.
--- NOTE | 2017-03-26 11:00 | NUR ---
PATIENT ASSIGNED TO TELE 114-2, ACCEPTED BY DR JONATHAN ZAIDI UTI AND DRUG ABUSE
--- NOTE | 2017-03-26 11:13 | NUR ---
REPORT GIVEN TO RNEDNA. PATIENT TO BE ADMITTED TO [facility].
--- NOTE | 2017-03-26 11:27 | NUR ---
PATIENT TRANSPORTED TO [facility] VIA STRETCHER WITH EMT AND RN FOR ADMISSION.
[2017-03-26] MEDS ORDERED: ONDANSETRON HCL/PF 4 MG/2 ML VIAL IVP PRN (11:30)
[2017-03-26] MEDS ORDERED: FEE PK DOSING 1 MIN EA MC ONE (11:40)
[2017-03-26 12:00] VITALS: BP 135/82
[2017-03-26] MEDS ORDERED: PIPERACILLIN /TAZOBACTAM 4.5 G in IV D5W 100 ML IV SCH (12:00)
[2017-03-26 12:15] LABS: CALCIUM, SERUM 7.6 mg/dL (8.5-10.1); CREATININE 0.8 mg/dL (0.6-1.3); POTASSIUM 3.8 mmol/L (3.5-5.1)
[2017-03-26 12:22] LABS: ALBUMIN 2.8 g/dL (3.4-5.0); BILIRUBIN,DIRECT 0.1 mg/dL (0.0-0.2); BILIRUBIN,TOTAL 0.5 mg/dL (0.2-1.0); TOTAL PROTEIN, SERUM 8.1 g/dL (6.4-8.2)
[2017-03-26] MEDS: PANTOPRAZOLE 40 MG TABLET.DR PO SCH (13:29)
[2017-03-26] MEDS: ACETAMINOPHEN 325 MG TABLET PO PRN (14:27)
--- NOTE | 2017-03-26 15:30 | NUR ---
RN NOTES: PT REFUSING BLOOD EXTRACTION FOR LACTIC ACID. MADE AWARE.
[2017-03-26 16:00] VITALS: BP 145/82
--- NOTE | 2017-03-26 16:00 | NUR ---
RN NOTES: PT VERBALIZING THAT SOMEONE IS IN HIS ROOM AND HE DOESN'T FEEL GOOD. HE WANTED TO BE TRANSFERRED TO 3RD FLOOR. PT OBSERVED TO BE ANXIOUS. PT REFERRED TO DR. CASTILLO AND ORDERED FOR PSYCH CONSULT AND ATIVAN [address] LOFTON INFORMED, TO SEE PT TOMORROW.
[2017-03-26] MEDS: PIPERACILLIN /TAZOBACTAM 3.375 G in IV D5W 50 ML IV SCH ×2 (16:07→21:32)
[2017-03-26] MEDS: LORAZEPAM INJ 2 MG/ML VIAL IV PRN ×2 (16:32→21:27)
[2017-03-26] MEDS: VANCOMYCIN 1.5 GM in IV D5W 500 ML IV SCH (18:03)
--- NOTE | 2017-03-26 18:54 | NUR ---
RN CLOSING NOTES: PT STILL VERBALIZING THAT HE WANTED TO GO HOME. PER SISTER ANY, PT HAS HX OF PSYCH PROBLEMS AND AGREED FOR PYSCH CONSULT. PT STILL ST ON TELEMONITOR. IV LINES KEPT PATENT & INTACT: R AC G20 W/ NS 1L X 125 CC/HR INFUSING WELL, L AC 18 SL. FC KEPT PATENT & INTACT. NEEDS ATTENDED. BED KEPT LOW & IN LOCKED POSITION. CALL LIGHT PLACED W/IN REACH. WILL ENDORSE TO PM RN FOR GATITO.
[2017-03-26] MEDS: IV NS 0.9% 1,000 ML IV PRN (19:28)
[2017-03-26 20:00] VITALS: BP 141/78
--- NOTE | 2017-03-26 20:07 | NUR ---
RN NOTES: RECEIVED PATIENT IN BED, AWAKE. NO DISTRESS NOTED, ON ROOM AIR. ALERT AND ORIENTED. COMMUNICATES VERBALLY. NO COMPLAINT OF PAIN OF THIS TIME. WU CATH PATENT AND INTACT DRAINING CLEAR YELLOW WITH NO FOUL ODOR URINE. COLOSTOMY BAG IN PLACE. PIV TO LAC ON SL. PIV TO RAC ATTACHED TO NS @125CC/HR, TOLERATING WELL. CONTINUE TO MONITOR.
--- NOTE | 2017-03-26 21:30 | NUR ---
PT IS AGITATED IN BED , VERBALIZED 'HE HAS SO MANY THING IN HIS MIND DOES NOT WANNA SHARE ' POSSIBLE HALLUCINATION . PRN ATIVAN 1 MG IV GIVEN FOR AGITATION/ANXIETY . WILL REASSESS.
--- NOTE | 2017-03-26 21:40 | NUR ---
RN NOTE; PT ON THE BED LOOKING TOWARDS WINDOW AND TELLING NURSE TO CLOSE THE CURTAIN PROPERLY THAT NOBODY CAN ENTER FROM. VERBALIZED THAT "HE IS VERY PARANOID THAT SOMEBODY WILL COME WITH THE GUN AND SHOT HIM , HE HAS THOUGHT IN HIS MIND THAT HE CANNOT CONTROL AT THIS TIME , AND ALSO HE CAN DO ANYTHING ANYTIME .WANTS SOMEBODY TO BE IN HIS SIDE 1:1 ." INFORMED TO BILLBOARD POSTER BENSON REYNOSO , RECEIVED ORDER FOR 1:1 SITTER ORDER . WILL CONTINUE TO MONITOR .
--- NOTE | 2017-03-26 23:00 | NUR ---
RN NOTE; PT COMPLAINING OF MUSCLE SPASM AND ASKING FOR BACLOFEN , BUSINESS QUALITY ASSURANCE ANALYST LOSS PREVENTION OPERATIONS MANAGER EDGARDO ORDERED BACLOFEN 10 MG PO TID. ORDER NOTED AND CARRIED OUT.
[2017-03-26] MEDS ORDERED: BACLOFEN (10 MG) 10 MG TABLET ONE (23:03)
[2017-03-26] MEDS: BACLOFEN (10 MG) 10 MG TABLET PO SCH (23:08)
[2017-03-27] VITALS: BP 133/82
[2017-03-27] MEDS: ZOLPIDEM TARTRATE 5 MG TABLET PO PRN (01:02)
--- NOTE | 2017-03-27 01:03 | NUR ---
RN NOTE; AMBIEN 5 MG PO GIVEN FOR INSOMNIA , TOLERATED WELL AT THIS TIME .WILL REASSESS.
[2017-03-27] MEDS ORDERED: SECONDARY IV SET 1 EA INFUS.SET MC ONE (01:58)
[2017-03-27] MEDS: VANCOMYCIN 1.5 GM in IV D5W 500 ML IV SCH ×4 (01:59→18:00)
[2017-03-27 04:00] VITALS: BP 131/73
[2017-03-27] MEDS: PIPERACILLIN /TAZOBACTAM 3.375 G in IV D5W 50 ML IV SCH ×4 (04:02→22:03)
--- NOTE | 2017-03-27 06:05 | NUR ---
RN CLOSING NOTES: RESIDENT IN BED WATCHING TV WITH SITTER AT BEDSIDE. NO EPISODE OF DISTRESS. ALERT AND ORIENTED. NO SIGNIFICANT CHANGE OF CONDITION OF THIS TIME. WILL CONTINUE TO MONITOR. WILL ENDORSE TO AM SHIFT.
[2017-03-27 08:00] VITALS: BP 142/84
--- NOTE | 2017-03-27 08:00 | NUR ---
TELE1/RN AM SHIFT INITIAL NOTES RECEIVED PT AWAKE SITTING IN BED WITH SITTER AT BEDSIDE. NO ACUTE CHANGE OF CONDITION. PT A/O X 4, DENIES ANY SYMPTOMS, COOPERATIVE. ON ROOM AIR SATURATING @ 99%, LUNG SOUNDS CLEAR. ON TELE WITH SINUS TACHY, HR 113. IV SITES PATENT WITH NO S/S OF INFECTION. WITH ON GOING IV INFUSION OF NS @ 125CC/HR. WU CATHETER NOTED WITH CLOUDY YELLOW URINE OUTPUT. COLOSTOMY SITE BEEFY RED WITH LIGHT BROWN SOFT FECAL OUTPUT. PT IS COMFORTABLE AT THIS TIME. SCHEDULED AM MEDS TO BE GIVEN. CL WITHIN REACHED, SAFETY MAINTAINED AND ISOLATION OBSERVED.
[2017-03-27] MEDS: BACLOFEN (10 MG) 10 MG TABLET PO SCH ×3 (08:14→16:16)
[2017-03-27] MEDS: PANTOPRAZOLE 40 MG TABLET.DR PO SCH (08:14)
[2017-03-27 08:15] LABS: BASOPHILS # (AUTO) 0.1 /CMM (0.0-0.2); BASOPHILS % (AUTO) 0.5 % (0.0-2.0); EOSINOPHILS # (AUTO) 0.2 /CMM (0.0-0.7); EOSINOPHILS % (AUTO) 1.4 % (0.0-6.0); HEMATOCRIT 36 % (39-51); HEMOGLOBIN 11.6 g/dL (13.5-17.5); LYMPHOCYTES # (AUTO) 1.4 /CMM (0.8-4.8); LYMPHOCYTES % (AUTO) 10.4 % (20.0-44.0); MEAN CORPUSCULAR HEMOGLOBIN 23 PG (26.0-33.0); MEAN CORPUSCULAR HGB CONC 32 g/dl (31.0-36.0); MEAN CORPUSCULAR VOLUME 73 fL (80-96); MONOCYTES # (AUTO) 1.2 /CMM (0.1-1.30); MONOCYTES % (AUTO) 8.9 % (2.0-12.0); NEUTROPHILS # (AUTO) 10.7 /CMM (1.8-8.9); NEUTROPHILS % (AUTO) 78.8 % (43.0-81.0); PLATELET COUNT (AUTO) 444 /CMM (150-450); RDW COEFFICIENT OF VARIATION 23.4 (11.5-15.0); RED BLOOD CELL COUNT(AUTO) 5.01 MIL/uL (4.5-6.0); WHITE BLOOD COUNT (AUTO) 13.5 K/uL (4.3-11.0)
[2017-03-27] MEDS: IV NS 0.9% 1,000 ML IV PRN ×2 (08:15→22:14)
[2017-03-27] MEDS ORDERED: BACLOFEN (10 MG) 10 MG TABLET PO SCH (09:00)
[2017-03-27 09:04] LABS: ALBUMIN 2.9 g/dL (3.4-5.0); BILIRUBIN,TOTAL 0.9 mg/dL (0.2-1.0); CALCIUM, SERUM 8.1 mg/dL (8.5-10.1); CREATININE 0.8 mg/dL (0.6-1.3); POTASSIUM 3.5 mmol/L (3.5-5.1)
[2017-03-27 09:29] LABS: BAND % (MANUAL) 2 % (0.0-5.0); EOSINOPHILS % (MANUAL) 2 % (0-4); LYMPHOCYTES % (MANUAL) 14 % (16-48); MONOCYTES % (MANUAL) 9 % (0-11.0); NEUTROPHILS % (MANUAL) 73 (42-76)
--- NOTE | 2017-03-27 10:42 | NUR ---
TELE1/RN ROUNDS - DR. CASTILLO UPDATED PT'S CONDITION. PT SEEN & EXAMINED BY DR. CASTILLO. NO NEW ORDERS RECEIVED AT THIS TIME.
[2017-03-27 12:00] VITALS: BP 126/75
--- NOTE | 2017-03-27 13:02 | NUR ---
TELE1/RN ROUNDS - DR. LOFTON UPDATED PT'S CONDITION. PT SEEN & EXAMINED BY DR. LOFTON. NO NEW ORDERS RECEIVED AT THIS TIME. MONITORING CONTINUED.
[2017-03-27] MEDS: QUETIAPINE FUMARATE 25 MG TABLET PO SCH ×2 (13:19→16:12)
[2017-03-27 16:00] VITALS: BP 151/90
[2017-03-27] MEDS: LACTOBACILLUS RHAMNOSUS GG 1 EACH CAP.SPRINK PO SCH (16:12)
--- NOTE | 2017-03-27 18:00 | NUR ---
TELE1/RN VANCOMYCIN IV - HELD SCHEDULED VANCOMYCIN IV @ 1800, HELD D/T HIGH TROUGH LEVEL, 44. MONITORING CONTINUED.
[2017-03-27] MEDS ORDERED: VANCOMYCIN 1.5 GM in IV D5W 500 ML IV SCH (18:30)
--- NOTE | 2017-03-27 18:51 | NUR ---
TELE1/HOME SALES CONSULTANT REQUEST SPOKE TO PT'S SISTER ANY ([phone]) REGARDING PT'S DISCHARGE PLACEMENT. REFERRED STRAIGHT SLICING MACHINE OPERATOR (GAVE THE CONTACT PHONE). WILL ENDORSE TO PM NURSE TO CASE MANAGEMENT TO CONTACT PT'S SISTER.
--- NOTE | 2017-03-27 19:10 | NUR ---
SUZY/SENIOR BUSINESS OBJECTS DEVELOPER PT PULLED TELLY BOX OFF AND REFUSED TO HAVE IT PUT BACK ON. PT'S INCREASED WHEN i SUGGESTED TO PLACED BACK ON AFTER BATH. WILL TRY AGAIN LATER.
--- NOTE | 2017-03-27 19:23 | NUR ---
TELE1/RN AM SHIFT END NOTES NO ACUTE CHANGE OF CONDITION NOTED DURING THE SHIFT. PT HAS BEEN COOPERATIVE THROUGHOUT THE SHIFT. NEEDS MET. PT ENDORSED TO PM NURSE TO CONTINUE CARE. SITTER AT BEDSIDE. CL WITHIN REACHED, SAFETY MAINTAINED AND ISOLATION OBSERVED.
--- NOTE | 2017-03-27 19:45 | NUR ---
SUZY/CORPORATE DEVELOPMENT MANAGER PT APPEARS CONFUSED, ASKED TO HAVE A BATH, PT BATHED SELF INDEPENDENTLY. CHANGED COLECTOMY BAG, STOMA LARGE RED, INFLAMED. THEN CHANGED THE MEPILEX UNDER PT, WOULD NOT ALLOW ME TO BACK IT. PT HAS PERIODS OF AGITATION, AND ANGER. PT WAS BATHED, SITTING ON CELL PHONE TALKING TO MOTHER.
[2017-03-27 20:00] VITALS: BP 135/73
--- NOTE | 2017-03-27 20:57 | NUR ---
SUZY/SENIOR PLANNING ANALYST PT COMPLAINED THAT THE RIGHT AC HEPLOCK WAS BURNING, D/C'D THIS. REDNESS WAS FOUND UNDER APPEARS TO BE AN ALLERGIC REACTION TO THE TAPE POSSIBLE ALLERGIC TO CLEAR TAPE.
--- NOTE | 2017-03-27 22:18 | NUR ---
SUZY/NETWORK LEAD PT'S COLOSTOMY BAG WAS CHANGED AGAIN, PER PT'S REQUEST. STILL REFUSED TO PLACE TELEY BOX ON.
[2017-03-28] VITALS: BP 128/78
--- NOTE | 2017-03-28 00:10 | NUR ---
SUZY/AIR BAG BUFFER TYLENOL GIVEN 650MG PT C/O PAIN , MILD PAIN TO LOWER EXTREMITIES. WILL CONTINUE TO MONITOR THE PT'S PAIN. CALL LIGHT WITHIN REACH
[2017-03-28] MEDS: ACETAMINOPHEN 325 MG TABLET PO PRN ×2 (00:29→20:23)
[2017-03-28] MEDS: QUETIAPINE FUMARATE 25 MG TABLET PO PRN ×2 (00:33→21:27)
--- NOTE | 2017-03-28 00:42 | NUR ---
SUZY/PHARMACY TECHNOLOGIST PT WAS STARTING TO BECOME AGITATED. SEROQUEL 12.5 PO GIVEN AT THIS TIME. WILL MONITOR PT'S BEHAVIOR. CALL LIGHT WITHIN REACH.
--- NOTE | 2017-03-28 02:00 | NUR ---
SUZY/EDUCATION AND DEVELOPMENT MANAGER PT APPARS TO BE COMFORTABLE, PT WAS RESPONSIVE TO THE SEROQUEL GIVEN EARLIER. PT WAS HAVENING PERIODS OF HALLUCINATIONS, WITH PERIODS OF AGITATION. WILL CONTINUE TO MONITOR THIS PT.
[2017-03-28] MEDS: PIPERACILLIN /TAZOBACTAM 3.375 G in IV D5W 50 ML IV SCH ×4 (03:55→22:00)
[2017-03-28 04:00] VITALS: BP 106/58
--- NOTE | 2017-03-28 05:02 | NUR ---
SUZY/TECHNICAL OPERATOR PT IS MUCH CALMER NOW, EASY TO REASON WITH. WILL CONTINUE TO MONITOR THIS PT.
[2017-03-28] MEDS: IV NS 0.9% 1,000 ML IV PRN (06:43)
--- NOTE | 2017-03-28 06:52 | NUR ---
SUZY/TOWBOAT CAPTAIN TRIED TO REAPPLY TELEMETRY BOX, HOWEVER STILL REFUSED. WILL PASS ON TO DAY NURSE.
--- NOTE | 2017-03-28 07:51 | NUR ---
DRAWING SUPERVISOR INITIAL NOTES RECEIVED PT AWAKE SITTING IN BED WITH SITTER AT BEDSIDE. NO ACUTE CHANGE OF CONDITION. PT A/O X 4, DENIES ANY SYMPTOMS, COOPERATIVE. ON ROOM AIR SATURATING @ 99%, LUNG SOUNDS CLEAR. NOT CURRENTLY ON TELE. NIGHTSHIFT NURSE REPORTED PATIENT REFUSED TELE MONITORING IV SITES PATENT WITH NO S/S OF INFECTION. WITH ON GOING IV INFUSION OF NS @ 125CC/HR. WU CATHETER NOTED WITH CLOUDY YELLOW URINE OUTPUT. COLOSTOMY SITE BEEFY RED WITH LIGHT BROWN SOFT FECAL OUTPUT. PT IS COMFORTABLE AT THIS TIME. SCHEDULED AM MEDS TO BE GIVEN. CALL LIGHT WITHIN REACHED, SAFETY MAINTAINED AND ISOLATION OBSERVED.
[2017-03-28 08:00] VITALS: BP 110/68
[2017-03-28 08:08] LABS: CREATININE 1.5 mg/dL (0.6-1.3); POTASSIUM 3.2 mmol/L (3.5-5.1)
[2017-03-28] MEDS: BACLOFEN (10 MG) 10 MG TABLET PO SCH ×3 (08:20→17:00)
[2017-03-28] MEDS: PANTOPRAZOLE 40 MG TABLET.DR PO SCH (08:21)
[2017-03-28] MEDS: QUETIAPINE FUMARATE 25 MG TABLET PO SCH ×2 (08:21→17:00)
[2017-03-28] MEDS: LACTOBACILLUS RHAMNOSUS GG 1 EACH CAP.SPRINK PO SCH ×2 (08:21→17:00)
[2017-03-28] MEDS ORDERED: POTASSIUM CHLORIDE 20 MEQ TAB.PRT.SR PO ONE (11:00)
[2017-03-28 12:00] VITALS: BP 124/78
--- NOTE | 2017-03-28 12:52 | NUR ---
RN NOTE PATIENT CURRENTLY EXTREMELY IRRITATED ABOUT COLOSTOMY BAG WASTING . PATIENT STATES HE WANTS TO LEAVE AND DOESN'T WANT ANY HELP CHARGE NURSE NOTIFIED. RN CONTINUES TO FOLLOW
--- NOTE | 2017-03-28 13:10 | NUR ---
RN NOTE PT IV REMOVED DUE TO PATIENT PULLING IT OUT. RN WILL ATTEMPT TO REINSERT AFTER PATIENT CALMS DOWN AND ALLOWS RN
--- NOTE | 2017-03-28 13:38 | NUR ---
RN NOTE MIDLINE PLACED DUE TO PATIENT BEING A HARD IV INSERTION AND THIS IS THE SECOND IV THAT THE PATIENT REMOVED DUE TO PATIENT STATED PAIN AND FLUID DRAINING. RN WILL FOLLOW
--- NOTE | 2017-03-28 14:14 | NUR ---
RN NOTE PATIENT REFUSED ALL CARE, PATIENT REFUSED IV INSERTIONx3 AND REFUSED MIDLINE INSERTION x2. CHARGE NURSE NOTIFIED AND UPDATED DON PATIENTS PROGRESS. RN WILL CONTINUE TO FOLLOW
--- NOTE | 2017-03-28 15:49 | NUR ---
RN NOTE PATIENT REFUSED IV AGAIN, PATIENT ALSO REFUSE IV ANTIBIOTICS, STATES"IM LEAVING " CHARGE NURSE NOTIFIED
[2017-03-28 16:00] VITALS: BP 128/62
--- NOTE | 2017-03-28 17:00 | NUR ---
RN NOTE PT STILL STATES THAT HE WANTS TO LEAVE AMA . RN SPOKE WITH MD CASTILLO PATIENT ABLE TO LEAVE AMA IF HE IS ABLE TO HAVE A FAMILY MEMBER OF CAREGIVER COME TO PICK HIM UP FROM THE HOSPITAL. RN NOTE SPOKE TO THE PATIENTS SISTER ANY , PATIENT SISTER STATES THAT HIS FAMILY WILL NOT BE COMING TO PICK THE PATIENT UP , SHE STATES MOTHER HAS A RESTRAINING ORDER AGAINST THE PATIENT AND THAT THE PATIENT IS VIOLENT. PT SISTER STATES THAT THE PATIENT IS NOT STABLE AND STATES HE WILL HARM HIM SELF. PSYCH MD CASTILLO NOTIFIED I REGARDS TO PLAN . PT NOTIFIED THAT HE IS NOT ALLOWED TO LEAVE WITHOUT PROPER TRANSPORTATION
--- NOTE | 2017-03-28 18:16 | NUR ---
RN NOTE PATIENT IS CURRENTLY REFUSING ALL CARE: IV INSERTION , PO MEDICATION, FOOD, CHANGE OF COLOSTOMY TURNING BATHING ETC. RN WILL ENDORSE TO PM NURSE IN REGARD TO PATIENT CARE . PATIENT MOTHER CAME TO THE HOSPITAL MOTHER STATES SHE HAS A RESTRAINING ORDER AGAINST THE PATIENT. THE PATIENT BECAME VERBALLY ABUSIVE TO STAFF AND MOTHER . PATIENT REQUEST THAT HE RECEIVES A DIFFERENT SITTER. PATIENT YELLED THAT HE IS RELEASED NOW.
--- NOTE | 2017-03-28 18:26 | NUR ---
RN NOTE RN SPOKE TO JONATHAN VENTURA IN REGARDS TO CONTACTING THE FRONT OFFICE TO REQUEST A PYSCH HOLD FOR A PATIENT. FRONT OFFICE CONTACTED SPOKE WITH MAREN AT [phone] SHE HAS CONTACTED RICKIE LARA FOR A EVALUATION FOR HOLD . RN AWAITING RETURN PHONE CALL.
--- NOTE | 2017-03-28 19:19 | NUR ---
RICKIE RN CONTACTED RN BACK STATES THAT THE PATIENT DOESN'T QUALIFY FOR PSYCH EVALUATION. MD DIAZ CONTACTED WITH CONTACT INFORMATION FOR RICKIE . RICKIE HAS COME FOR A PSYCH EVALUATION FOR THE PATIENT . PATIENT PLACED ON A HOLD. PER MD BRADLEY GIVE PATIENT PO ZYPREXA
--- NOTE | 2017-03-28 19:20 | NUR ---
SINDI LAIRD INITIAL NOTE PT WAS RECEIVED IN NO ACUTE DISTRESS. PT IS ON RA WITH 02 SAT OF 97% WITH ADEQUATE CHEST RISE/FALL. IV LINE WAS TAKEN OUT PRIOR TO THE START OF MY SHIFT. ASKED IF ANOTHER ONE MAY BE STARTED AND PT REFUSES. WU IS CLEAN DRY AND INTACT DRAINING URINE ADEQUATELY. SEEMS TO BE A LITTLE BIT AGITATED SO AN ORDER FOR ZYPREXA 5MG PO X1 WAS RECEIVED AND GIVEN. PT REFUSES MOST OF ALL TREATMENT/NURSING SERVICES BUT WILL CONTINUE TO MONITOR THE PT FOR ANY CHANGES. COMFORT AND SAFETY MEASURES TO BE ENSURED DURING THE SHIFT. Addendum: 03/28/17 at 2134 by ANGELY HUANG RN PT HAS STOMA IN ABDOMEN THAT IS RED IN COLOR. PT IS ON TELE BUT REFUSES TO HAVE THE TELE MACHINE PLACED ON HIM TO DO SO. SOMETIMES WILL REQUEST CERTAIN MEDICATIONS BUT OTHERWISE REFUSES TO HAVE ME ASSESS HIM COMPLETELY, CHANGE ANY LINENS, START AN IV TO CONTINUE ATB TREATMENT.
[2017-03-28 20:00] VITALS: BP 148/89
[2017-03-28] MEDS ORDERED: OLANZAPINE 5 MG TABLET PO SCH (20:00)
[2017-03-28] MEDS ORDERED: OLANZAPINE 5 MG TABLET PO ONE (20:00)
[2017-03-28] MEDS ORDERED: OLANZAPINE 5 MG TABLET ONE (20:01)
--- NOTE | 2017-03-28 20:40 | NUR ---
RN END OF SHIFT NOTE RN REPORTED OFF PLAN OF CARE TO NIGHTSHIFT RN PATIENT CURRENTLY STABLE SPEAKING TO SINDI DAMIAN PER DR. OLVERA ORDER. ALL CARE PROVIDED SAFETY MEASURE IN PLACE. MEDICATION ORDERED GIVEN NURSING STAFF WILL CONTINUE TO FOLLOW THE PATIENT PROGRESS.
--- NOTE | 2017-03-28 20:54 | NUR ---
A 72 HOUR HOLD WAS PLACED FOR THIS PATIENTS SAFETY. WILL CONTINUE TO MONITOR.
--- NOTE | 2017-03-28 20:54 | NUR ---
PT REFUSES TO HAVE PICTURES TAKEN OF WOUNDS. WILL ASK LATER ON IN THE SHIFT.
--- NOTE | 2017-03-28 20:55 | NUR ---
PT STATED HE HAD A HEADACHE DULL 6/10 SO MEDICATION WAS OFFERED AMD GIVEN (TYLENOL).
[2017-03-28] MEDS: ZOLPIDEM TARTRATE 5 MG TABLET PO PRN (21:26)
--- NOTE | 2017-03-28 22:10 | NUR ---
PT REFUSED TO HAVE NO IV SITE SO IV MEDICATION ZOSYN WAS NOT GIVEN. Addendum: 03/28/17 at 2300 by ANGELY HUANG RN REFUSED TO HAVE NO IV LINE STARTED*
[2017-03-29] VITALS (7 sets, daily range): BP systolic 116–161; BP diastolic 76–91
--- NOTE | 2017-03-29 | NUR ---
RN NOTE ZYPREXA X1 PO UNVERIFIED BY PHARM. CHARGE NURSE ASSISTED TAKING MEDICATION OUT FOR ADMINISTRATION AT 2006 ON 03/28/17. MEDICATION TOLERATED ORDERED.
--- NOTE | 2017-03-29 00:05 | NUR ---
PT HAS BEEN SLEEPING FOR PAST HOUR 1/2 AFTER RECEIVING PRN MEDICATIONS.
--- NOTE | 2017-03-29 03:12 | NUR ---
RN NOTE WILL START PO ATB THERAPY FOR UTI/SEPSIS STARTING TOMORROW 0900 ON MACROBID PO BID
[2017-03-29] MEDS: ACETAMINOPHEN 325 MG TABLET PO PRN ×2 (03:52→19:57)
--- NOTE | 2017-03-29 05:13 | NUR ---
RN NOTE PT STATED HE HAD MILD PAIN IN HEAD REGION. GAVE TYLENOL 650MG AT 0352. WILL CONTINUE TO MONITOR PT FOR PAIN.
--- NOTE | 2017-03-29 06:30 | NUR ---
COMMERCIAL SEWING INSTRUCTOR CLOSING NOTE PT REMAINED IN NO ACUTE DISTRESS DURING THE SHIFT. WAS AGITATED/ANGRY AT BEGINNING OF THE SHIFT BUT SLEPT WELL AND TOLERATED MEDICATION IN WHICH HE ASKED FOR OR WERE OFFERED THAT HE AGREED TO. NO IV ACCESS AND REFUSED TO START A NEW LINE BUT ATB THERAPY WILL BE CHANGED TO PO MEDICATIONS STARTING AT 0900 FOR UTI/SEPSIS. SITTER AT BEDSIDE. PT HOWEVER DID ACCEPT BLOOD DRAW FOR LABS. PT IS ON 5150 AND SHOULD HAVE VISITORS RESTRICTED SINCE SISTER STATED HE KNEW PEOPLE THAT WOULD COME AND GIVE HIM DRUGS TO OVERDOSE. PT IS CURRENTLY CALM COMFORTABLE IN BED SLEEPING AND WILL ENDORSE CARE TO AM NURSE.
[2017-03-29 06:54] LABS: BASOPHILS % (AUTO) 0.4 % (0.0-2.0); EOSINOPHILS # (AUTO) 0.2 /CMM (0.0-0.7); HEMATOCRIT 36 % (39-51); HEMOGLOBIN 11.4 g/dL (13.5-17.5); LYMPHOCYTES # (AUTO) 1.3 /CMM (0.8-4.8); LYMPHOCYTES % (AUTO) 11.9 % (20.0-44.0); MEAN CORPUSCULAR HEMOGLOBIN 23 PG (26.0-33.0); MEAN CORPUSCULAR HGB CONC 32 g/dl (31.0-36.0); MEAN CORPUSCULAR VOLUME 73 fL (80-96); MONOCYTES # (AUTO) 0.7 /CMM (0.1-1.30); NEUTROPHILS # (AUTO) 8.4 /CMM (1.8-8.9); NEUTROPHILS % (AUTO) 78.7 % (43.0-81.0); PLATELET COUNT (AUTO) 439 /CMM (150-450); RDW COEFFICIENT OF VARIATION 23.2 (11.5-15.0); RED BLOOD CELL COUNT(AUTO) 4.95 MIL/uL (4.5-6.0); WHITE BLOOD COUNT (AUTO) 10.7 K/uL (4.3-11.0)
[2017-03-29 07:06] LABS: CALCIUM, SERUM 8.3 mg/dL (8.5-10.1); CREATININE 1.7 mg/dL (0.6-1.3); POTASSIUM 3.6 mmol/L (3.5-5.1)
[2017-03-29] MEDS ORDERED: VANCOMYCIN 1.25 GM in IV D5W 500 ML IV SCH (08:00)
[2017-03-29] MEDS: LACTOBACILLUS RHAMNOSUS GG 1 EACH CAP.SPRINK PO SCH ×2 (08:45→16:02)
[2017-03-29] MEDS: BACLOFEN (10 MG) 10 MG TABLET PO SCH ×3 (08:45→16:05)
[2017-03-29] MEDS: PANTOPRAZOLE 40 MG TABLET.DR PO SCH (08:46)
[2017-03-29] MEDS: NITROFURANTOIN/NITROFURAN MAC 100 MG CAPSULE PO SCH ×2 (08:46→21:03)
[2017-03-29] MEDS: QUETIAPINE FUMARATE 25 MG TABLET PO SCH (08:47)
[2017-03-29 08:48] LABS: EOSINOPHILS % (MANUAL) 2 % (0-4); LYMPHOCYTES % (MANUAL) 12 % (16-48); MONOCYTES % (MANUAL) 2 % (0-11.0); NEUTROPHILS % (MANUAL) 84 (42-76)
[2017-03-29] MEDS: OLANZAPINE 5 MG/TAB.RAPDIS PO SCH ×3 (11:00→21:03)
--- NOTE | 2017-03-29 13:15 | NUR ---
WOUND CARE CONSULT: PT ADAMANTLY REFUSED WOUND/SKIN ASSESSMENT. WILL SEE PT PT CONDITION PERMITS. RECOMMEND LOW AIRLOSS BED. PT FOLLOWED BY SURGEON. Addendum: 03/29/17 at 1321 by ROBERTO CARLOS WEBSTER WNDNU WOUND RECOMMENDATIONS MADE BASED ON PHOTO DOCUMENTATION.
[2017-03-29] MEDS ORDERED: HYDROGEL DRESSING 90 GM TUBE TP PRN (13:30)
[2017-03-29] MEDS: HYDROGEL DRESSING 90 GM TUBE TP SCH (16:04)
--- NOTE | 2017-03-29 18:30 | NUR ---
RN NOTE SPOKE TO PT'S JON AGARWAL, FROM [place], SHE REQUESTED NO VISITORS FOR THE PT: NO MOM, NO SISTER, NO FRIENDS.
--- NOTE | 2017-03-29 19:20 | NUR ---
RN MS INITIAL NOTE RECEIVED PT IN NO ACUTE DISTRESS IN BED WATCHING TV WITH FAMILY AT BEDSIDE. PT IS A/O X3 WITH 02 SATURATION OF 97% ON RA. PT HAS COLOSTOMY BAG WITH STOMA PROTRUDING THROUGH BAG RED IN COLOR WITH NO DRAINAGE. NO IV SITE INTACT, PT REFUSES. PT REFUSED PHYSICAL ASSESSMENT. WU CATH INTACT CLEAN AND DRY DRAINING YELLOW CLOUDY URINE WITH SEDIMENT. MACROBID TO BE GIVEN AT 2100. COMFORT/SAFETY PRECAUTIONS TO BE ENSURED DURING THE SHIFT.
--- NOTE | 2017-03-29 19:44 | NUR ---
RN NOTE PT REFUSES MIDLINE/IV LINE INSERTION Addendum: 03/29/17 at 1944 by ANGELY HUANG RN Amended: Links added.
[2017-03-29] MEDS: ZOLPIDEM TARTRATE 5 MG TABLET PO PRN (23:08)
[2017-03-30] VITALS: BP 145/77
--- NOTE | 2017-03-30 00:43 | NUR ---
RN NOTE PT REFUSED VITAL SIGNS FOR 0000. CHARTED MOST RECENT VITALS TAKEN BEFORE 0000. Addendum: 03/30/17 at 0047 by ANGELY HUANG RN Amended: Links added.
[2017-03-30 04:00] VITALS: BP 145/77
--- NOTE | 2017-03-30 04:18 | NUR ---
PT REFUSED 0400 VITAL SIGNS. WILL CONTINUE TO MONITOR PT DURING SHIFT. Addendum: 03/30/17 at 0419 by ANGELY HUANG RN Amended: Links added.
--- NOTE | 2017-03-30 04:55 | NUR ---
MS RN NOTES NOTED PATIENT BEING AGGRESSIVE TOWARDS SITTER, THROWING BELONGINGS AT SITTER. PATIENT STATED HE WANTS THE SITTER TO TURN HIS BACK WHILE HE WASHES UP, EXPLAINED TO PATIENT PER DOCTORS ORDERS, WE HAVE TO KEEP AN EYE ON HIM. PATIENT CONTINUED CURSING AND NAME CALLING TOWARDS STAFF. CHARGE NURSE MADE AWARE. WILL CONTINUE TO MONITOR.
--- NOTE | 2017-03-30 05:20 | NUR ---
MS RN NOTES SITTER WAS REMOVED FROM SITUATION, SECURITY CALLED DUE TO PATIENTS AGGRESSIVE BEHAVIOR, CHARGE NURSE IN ROOM. SPOKE WITH PATIENT, ABLE TO CALM PATIENT DOWN. CHANGED SITTER, PATIENT MORE CALM AND COOPERATIVE. WILL CONTINUE TO MONITOR.
--- NOTE | 2017-03-30 06:15 | NUR ---
RN NOTE PT THREW HIMSELF ONTO THE GROUND WHILE SITTER WAS BY BEDSIDE ASSISTING WITH CARE. WHEN ASKED IF HE WAS INJURED OR HURT HE STATED "DON'T WORRY HOMIE, I AM FINE MAN. IT WAS MY FAULT AND IM CHILL". NO PAIN MEDICATIONS WERE ADMINISTERED SINCE HE STATED 0/10 PAIN SCALE. WILL ENDORSE TO AM NURSE AND MONITOR UNTIL END OF CARE.
--- NOTE | 2017-03-30 06:41 | NUR ---
RN MS CLOSING NOTE PT REMAINS CALM AFTER SITTER WAS REMOVED AND REPLACED BY ANOTHER SITTER BY BEDSIDE. NO ACUTE DISTRESS NOTED. COLOSTOMY CHANGED X1. NO IV ACCESS STILL BUT TOLERATED PO MEDICATIONS ORDERED. WU CATHETER CLEAN DRY AND INTACT DRAINING. SAFETY/COMFORT MEASURES ENSURED AND WILL ENDORSE CARE WELL POTENTIAL ISSUES THAT MAY ARISE WITH THE PT TO AM NURSE.
--- NOTE | 2017-03-30 07:18 | NUR ---
RN INITIAL NOTES: REC'D PT AWAKE ON BED, ON SITTING POS, NOT IN ANY DISTRESS, A/O X3, DENIES ANY PAIN/ DISCOMFORT. NO IV ACCESS NOTED, PT REFUSED IV INSERTION. HAS COLOSTOMY BAG IN PLACE. PT HAS PATENT & INTACT FC. HAS 1:1 SITTER AT BEDSIDE. PROVIDED COMFORT & SAFETY MEASURES. CALL LIGHT PLACED W/IN REACH. BED KEPT LOW & IN LOCKED POS. ISOLATION PREC OBSERVED. WILL CONTINUE TO MONITOR.
[2017-03-30 08:00] VITALS: BP 132/78
[2017-03-30 08:09] LABS: CALCIUM, SERUM 8.8 mg/dL (8.5-10.1); CREATININE 1.6 mg/dL (0.6-1.3); POTASSIUM 3.6 mmol/L (3.5-5.1)
[2017-03-30] MEDS: PANTOPRAZOLE 40 MG TABLET.DR PO SCH (09:42)
[2017-03-30] MEDS: NITROFURANTOIN/NITROFURAN MAC 100 MG CAPSULE PO SCH (09:42)
[2017-03-30] MEDS: LACTOBACILLUS RHAMNOSUS GG 1 EACH CAP.SPRINK PO SCH ×2 (09:42→16:13)
[2017-03-30] MEDS: BACLOFEN (10 MG) 10 MG TABLET PO SCH ×3 (09:42→16:13)
[2017-03-30] MEDS: HYDROGEL DRESSING 90 GM TUBE TP SCH (09:42)
[2017-03-30] MEDS: OLANZAPINE 5 MG/TAB.RAPDIS PO SCH (09:42)
--- NOTE | 2017-03-30 10:04 | NUR ---
RN NOTES: PT VERBALIZING THAT HE WANTED TO GO HOME. DR. THOMSON MADE AWARE, SAW AND EXAMINED PT.
[2017-03-30] MEDS ORDERED: NITR100C6 PO (10:06)
[2017-03-30] MEDS: ACETAMINOPHEN 325 MG TABLET PO PRN (12:20)
--- NOTE | 2017-03-30 13:00 | NUR ---
RN NOTES: CASANDRA STEEL MADE AWARE OF DC AND IS ARRANGING FOR WHEELCHAIR.
[2017-03-30 16:00] VITALS: BP 147/96
--- NOTE | 2017-03-30 19:03 | NUR ---
MACHINERY ENGINEER NOTES: PT DC TO HOME, SELF CARE ORDERED. DC INSTRUCTIONS AND DOCUMENTS PROVIDED W/ VERBALIZATION OF UNDERSTANDING. ALL BELONGINGS WITH HIM. BELONGING LIST SIGNED BY PT. PT REFUSED TAKING PHOTOS OF HIS WOUNDS. COLOSTOMY BAG AND FC CHANGED BY HIMSELF. OFFERED TO CHANGE IT BUT PT STRONGLY REFUSED. RISK & BENEFITS EXPLAINED. SISTER ATUL MADE AWARE OF DC. PT LEFT FACILITY IN STABLE CONDITION ACCOMPANIED BY SIGNAL OPERATOR LINGUIST VIA OWN WHEELCHAIR. NO CONCERNS EXPRESSED AT THIS TIME.
== END 2017-03-30 19:07 | disposition home or self-care (01) | DRG 720 ==
LOC: ER 08:49 → TELE1 11:04 → MEDSG1 03-29 12:00
PROVIDERS: ADMIT Internal Medicine; ATTEND Internal Medicine
DX: A41.9 Sepsis, unspecified organism (principal); L89.154 Pressure ulcer of sacral region, stage 4; N17.9 Acute kidney failure, unspecified; D68.59 Other primary thrombophilia; G82.20 Paraplegia, unspecified; K94.09 Other complications of colostomy; E66.01 Morbid (severe) obesity due to excess calories; N31.9 Neuromuscular dysfunction of bladder, unspecified; N39.0 Urinary tract infection, site not specified; R65.20 Severe sepsis without septic shock; Z59.0 Homelessness; Z74.01 Bed confinement status; K43.5 Parastomal hernia without obstruction or gangrene; D64.9 Anemia, unspecified; F10.20 Alcohol dependence, uncomplicated; F15.90 Other stimulant use, unspecified, uncomplicated; F17.210 Nicotine dependence, cigarettes, uncomplicated; F41.9 Anxiety disorder, unspecified; Z87.440 Personal history of urinary (tract) infections; Z91.19 Patient's noncompliance with other medical treatment and regimen; Z68.39 Body mass index [BMI] 39.0-39.9, adult; F25.9 Schizoaffective disorder, unspecified; Y23.0XXS Shotgun discharge, undetermined intent, sequela; F29 Unspecified psychosis not due to a substance or known physiological condition; F19.10 Other psychoactive substance abuse, uncomplicated; B95.2 Enterococcus as the cause of diseases classified elsewhere; B96.1 Klebsiella pneumoniae [K. pneumoniae] as the cause of diseases classified elsewhere; Y83.9 Surgical procedure, unspecified as the cause of abnormal reaction of the patient, or of later complication, without mention of misadventure at the time of the procedure; Y92.009 Unspecified place in unspecified non-institutional (private) residence as the place of occurrence of the external cause; Z87.11 Personal history of peptic ulcer disease; L89.899 Pressure ulcer of other site, unspecified stage
CPT/HCPCS: 36415; 71010-TC; 80048-TC; 80053-TC; 80076-TC; 80202-TC; 80305; 81000-TC; 83605-TC; 85025-TC; 87040-TC; 87081-TC; 87086-TC; 87186-TC; A4606; A6248; A6253; A6402; A6403; G0480; J2060; J2543; J3370; J7030; J7060; Z7610

== ENCOUNTER 2017-04-01 09:03 | Emergency (ER) | payer MEDICAID ==
[~2017-04-01] VITALS: Ht 182.9 cm; Wt 117.9 kg
[~2017-04-01 09:03] MED LIST changes: -AMOX-428 PO; -CIPR500T5 PO; +NITR100C6 PO
--- NOTE | 2017-04-01 09:15 | NUR ---
PATIENT BIB RA C/O BILATERAL LEG PAIN. PATIENT IS A/OX 4. BREATHING EVEN AND UNLABORED. PATIENT IS PARAPLEGIC, WITH WU IN PLACE ON ARRIVAL. VITALS STABLE. SAFETY AND COMFORT MEASURES IN PLACE. AWAITING MD ORDERS.
[2017-04-01] MEDS ORDERED: NITROFURANTOIN/NITROFURAN MAC 100 MG CAPSULE ONE (10:04)
[2017-04-01] MEDS: NITROFURANTOIN/NITROFURAN MAC 100 MG CAPSULE PO ONE (10:05)
--- NOTE | 2017-04-01 10:25 | NUR ---
SELF PROPELLED HOT MIX ROLLER OPERATOR AT BEDSIDE.
--- NOTE | 2017-04-01 12:04 | NUR ---
CALLED [facility] FOR TRANSPORT SPOKE TO BATSHEVA FONSECA OF 45 MINS WAS GIVEN.
--- NOTE | 2017-04-01 16:10 | NUR ---
CASE MANAGEMENT CALLED, SPOKE WITH OTTO SHAH, SOMEBODY FROM [facility] IS COMING TO PICK HIM UP
--- NOTE | 2017-04-01 17:07 | NUR ---
CALLED [facility] FOR TRANSPORT, ETA OF 1HR WAS GIVEN.
--- NOTE | 2017-04-01 17:41 | NUR ---
PER CASE MANAGEMENT ANY ALARCON THE PATIENTS SISTER ACCEPTED THE PATIENT. PATIENT WILL BE TRANSPORTED HOME.
[2017-04-01 18:03] VITALS: BP 139/82
--- NOTE | 2017-04-01 18:33 | NUR ---
Patient cleared for discharge. However, refusing to take ambulance back home with mother. Patient stating he will take a taxi to his cousins house, which he refuses to provide address to. Dr. Jin discussed all risks involved in taking taxi and patient still refused to take ambulance. Patient discharged to to [facility] in stable condition. Written and verbal after care instructions given. Patient verbalizes understanding of instruction. Left via private taxi.
== END 2017-04-01 18:34 | disposition home or self-care (01) ==
LOC: ER 09:05
DX: S99.922A Unspecified injury of left foot, initial encounter (principal); M79.89 Other specified soft tissue disorders; F10.10 Alcohol abuse, uncomplicated; F15.10 Other stimulant abuse, uncomplicated; G82.20 Paraplegia, unspecified; Z93.3 Colostomy status; F17.200 Nicotine dependence, unspecified, uncomplicated; W22.8XXA Striking against or struck by other objects, initial encounter; Y92.89 Other specified places as the place of occurrence of the external cause; Y93.89 Activity, other specified; Y99.8 Other external cause status
CPT/HCPCS: 73630-TC; 93971-TC; A4606; Z7610

== ENCOUNTER 2017-04-20 18:06 | Inpatient (IN) | payer MEDICAID ==
[~2017-04-20] VITALS: Ht 172.7 cm; Wt 120.2 kg
--- NOTE | 2017-04-20 18:11 | NUR ---
LAVELL FROM HOME DT "FALLING OFF COLOSTOMY BAG" NOTED OSTOMY WITH BULGING. NO SIGNS OF INFECTION NOTED. PATIENT IS AAO3. APPEARS IN NO APPARENT DISTRESS. HOWEVER PATIENT NOTED TACHYCARDIC AT THIS TIME. DENIES CHEST PAIN. NO SOB. PATIENT IS FC DEPENDENT
[2017-04-20] MEDS ORDERED: IV NS 0.9% 500 ML BAG IV ONE (18:30)
--- NOTE | 2017-04-20 18:30 | NUR ---
COLOSTOMY BAG CHANGED
--- NOTE | 2017-04-20 18:35 | NUR ---
IV ACCESSED TO RAC 20
[2017-04-20 18:38] LABS: BASOPHILS # (AUTO) 0.3 /CMM (0.0-0.2); BASOPHILS % (AUTO) 1.4 % (0.0-2.0); EOSINOPHILS # (AUTO) 0.1 /CMM (0.0-0.7); EOSINOPHILS % (AUTO) 0.3 % (0.0-6.0); HEMATOCRIT 41 % (39-51); HEMOGLOBIN 13.5 g/dL (13.5-17.5); LYMPHOCYTES # (AUTO) 1.5 /CMM (0.8-4.8); LYMPHOCYTES % (AUTO) 7.6 % (20.0-44.0); MEAN CORPUSCULAR HEMOGLOBIN 24 PG (26.0-33.0); MEAN CORPUSCULAR HGB CONC 33 g/dl (31.0-36.0); MEAN CORPUSCULAR VOLUME 74 fL (80-96); MONOCYTES % (AUTO) 5.1 % (2.0-12.0); NEUTROPHILS # (AUTO) 16.5 /CMM (1.8-8.9); NEUTROPHILS % (AUTO) 85.6 % (43.0-81.0); PLATELET COUNT (AUTO) 526 /CMM (150-450); RDW COEFFICIENT OF VARIATION 24.6 (11.5-15.0); RED BLOOD CELL COUNT(AUTO) 5.53 MIL/uL (4.5-6.0); WHITE BLOOD COUNT (AUTO) 19.4 K/uL (4.3-11.0)
[2017-04-20 18:52] LABS: CALCIUM, SERUM 8.5 mg/dL (8.5-10.1); CREATININE 1.1 mg/dL (0.6-1.3); POTASSIUM 3.6 mmol/L (3.5-5.1)
--- NOTE | 2017-04-20 19:10 | NUR ---
VESSEL OPERATOR AT
[2017-04-20 19:18] LABS: APPEARANCE,URINE Slightly Cloudy (CLEAR); BILIRUBIN,URINE Negative (NEGATIVE); BLOOD, URINE Moderate Ery/uL (NEGATIVE); COLOR,URINE Dark (YELLOW); KETONES,URINE Trace (NEGATIVE); LEUKOCYTE ESTERASE ,URINE Small (NEGATIVE); NITRITE, URINE Positive (NEGATIVE); PH,URINE 5.5 (5.0-8.0); PROTEIN,URINE 100 mg/dl (NEGATIVE); UGLUCOSE Negative (NEGATIVE); UROBILINOGEN,URINE 0.2 EU/dL (0.2)
[2017-04-20 19:25] LABS: ACETAMINOPHEN 0 ug/ml (10-30); ALANINE AMINOTRANSFERASE 30 U/L (12-78); ALBUMIN 3.7 g/dL (3.4-5.0); ALCOHOL, BLOOD < 3 mg/dL (0-0); ALKALINE PHOSPHATASE 135 U/L (46-116); ASPARTATE AMINOTRANSFERASE 24 U/L (15-37); BILIRUBIN,DIRECT 0.1 mg/dL (0.0-0.2); BILIRUBIN,TOTAL 0.5 mg/dL (0.2-1.0); SALICYLATE 1.9 mg/dL (2.8-20.0); TOTAL PROTEIN, SERUM 9.8 g/dL (6.4-8.2)
[2017-04-20 19:48] LABS: EOSINOPHILS % (MANUAL) 1 % (0-4); LYMPHOCYTES % (MANUAL) 7 % (16-48); MONOCYTES % (MANUAL) 2 % (0-11.0); NEUTROPHILS % (MANUAL) 90 (42-76)
[2017-04-20] MEDS ORDERED: PIPERACILLIN /TAZOBACTAM 3.375 G in IV D5W 50 ML IV ONE (20:30)
[2017-04-20] MEDS ORDERED: IV NS 0.9% 1,000 ML BAG IV ONE (20:30)
[2017-04-20 20:33] LABS: BACTERIA,URINE 3+ /HPF (None Seen); RBC,URINE 21-50 /HPF (0-2); SQUAMOUS EPITHELIAL CELL,UR None Seen /HPF (None Seen); WBC,URINE 21-50 /HPF (0-3)
[2017-04-20] MEDS ORDERED: LORAZEPAM INJ 2 MG/ML VIAL ONE (20:36)
[2017-04-20] MEDS ORDERED: PIPERACILLIN /TAZOBACTAM 3.375 G VIAL IV ONE (20:36)
[2017-04-20] MEDS ORDERED: LORAZEPAM INJ 2 MG/ML VIAL IV ONE (21:00)
--- NOTE | 2017-04-20 21:19 | NUR ---
TELE 111-1
--- NOTE | 2017-04-20 21:48 | NUR ---
REPORT GIVEN TO SINDI OLW FOR CONTINUITY OF CARE
--- NOTE | 2017-04-20 21:50 | NUR ---
PAGED DR CHRISTINA FOR PANEL ADMISSION
--- NOTE | 2017-04-20 21:54 | NUR ---
Mark recio in [facility] - 04/20/17 at 2154 by ELISEO TOTAL URINARY OUTPUT AT THIS TIME-- 1300CC
--- NOTE | 2017-04-20 21:54 | NUR ---
TOTAL URINARY OUTPUT AT THIS TIME-- 1300CC
--- NOTE | 2017-04-20 22:54 | NUR ---
PT TRASNPORTED TO TELE 1. VSS
[2017-04-20 23:00] VITALS: BP 135/86
--- NOTE | 2017-04-20 23:00 | NUR ---
ADMISSION NOTE RECEIVED PT COMING FROM ER VIA [place], PT CAME IN TO THE ER WITH COMPLAINT OF ABDOMINAL PAIN, SPECIFICALLY ON HIS COLOSTOMY AREA, PT IS COOPERATIVE WITH CARE, MD MADE AWARE THAT ADMISSION ARRIVED ON THE FLOOR, HE WILL BE INPUTTING ORDERS PROMPTLY, SAFETY MEASURES WILL BE MAINTAINED AT ALL TIMES, NEEDS WILL BE ANTICIPATED AND ATTENDED TO DURING HOURLY ROUNDS AND NEEDED.
[2017-04-20] MEDS ORDERED: MAG HYDROX/AL HYDROX/SIMETH 30 ML UDC PO PRN (23:30)
[2017-04-20] MEDS ORDERED: Z GUARD REMEDY 2 OZ OINT TP PRN (23:30)
[2017-04-20] MEDS ORDERED: MAGNESIUM HYDROXIDE 30 ML UDC PO PRN (23:30)
[2017-04-20] MEDS ORDERED: ONDANSETRON HCL/PF 4 MG/2 ML VIAL IVP PRN (23:30)
[2017-04-20] MEDS ORDERED: CEFTRIAXONE 1 G in IV D5W 50 ML IV SCH (23:30)
[2017-04-20] MEDS ORDERED: CEFTRIAXONE 1 G VIAL ONE (23:34)
[2017-04-20] MEDS ORDERED: ACETAMINOPHEN 325 MG TABLET ONE (23:35)
[2017-04-20] MEDS: ACETAMINOPHEN 325 MG TABLET PO PRN (23:45)
[2017-04-21 00:33] VITALS: BP 135/86
--- NOTE | 2017-04-21 02:00 | NUR ---
WHEN DOING HOURLY ROUNDS PT WAS NOTED TO BE LEANING ON THE SIDE OF THE BED WITH HIS LEFT HAND TOUCHING THE FLOOR, IMMEDIATELY HELPED PT TO LAY BACK IN BED, PT IS VERY AGITATED SAYING THAT HE HAS A RAT IN HIS BUTTOCK, IV WAS PULLED OUT WHILE PT WAS HAVING THIS HALLUCINATION, HEART RATE IN THE MONITOR IS FLUCTUATING 150-160, MD CHRISTINA IMMEDIATELY PAGED AND NOTIFIED OF SITUATION, ORDER RECEIVED TO GIVE ATIVAN 0.5MG IM X1 FOR AGITATION, AND FOR A 1:1 SITTER, CHARGE NURSE AND NURSING MILL SET UP ADVISED OF NEW ORDER, WILL CONTINUE TO MONITOR CLOSELY.
[2017-04-21] MEDS ORDERED: LORAZEPAM INJ 2 MG/ML VIAL ONE (02:13)
[2017-04-21] MEDS ORDERED: LORAZEPAM INJ 2 MG/ML VIAL IM ONE (02:30)
--- NOTE | 2017-04-21 03:31 | NUR ---
TELE CLOSING NOTE GAVE REPORT TO SINDI MOTLEY, PT IS STABLE, ATIVAN WAS GIVEN FOR AGITATION AND IT WAS APPROXIMATELY EFFECTIVE FOR 1HR BUT PT HAS BEGAN TO APPEAR AGITATED AGAIN, DUE TO PT'S EPISODE OF AGITATION UNABLE TO TAKE PICTURES OF WOUNDS, ALSO DUE TO PT SWEATING AND AGITATION UNABLE TO MAINTAIN TELE LEADS ON PT, ENDORSE TO TOLU FOR GATITO.
--- NOTE | 2017-04-21 03:40 | NUR ---
TELE/RN RECEIVE PATIENT AWAKE, ALERT, NON COOPERATIVE, AGITATED, WET AND DIRTY BUT REFUSING TO BE CLEANED, REFUSING CARE. OTHERWISE, NO DISTRESS NOTED. WILL CONTINUE TO MONITOR CLOSELY FOR SAFETY.
[2017-04-21 04:00] VITALS: BP 127/76
--- NOTE | 2017-04-21 05:15 | NUR ---
TELE/RN PER WAREHOUSE COORDINATOR PATIENT REFUSED BELONGINGS CHECK.
--- NOTE | 2017-04-21 05:33 | NUR ---
TELE1/RN PATIENT STILL REFUSING CARE. COLOSTOMY IS OPEN, NO BAG IN PLACE AND PATIENT REFUSES US TO PUT A NEW BAG. WILL CONTINUE TO MONITOR.
[2017-04-21 06:45] LABS: BASOPHILS # (AUTO) 0.1 /CMM (0.0-0.2); BASOPHILS % (AUTO) 0.6 % (0.0-2.0); EOSINOPHILS # (AUTO) 0.1 /CMM (0.0-0.7); EOSINOPHILS % (AUTO) 0.4 % (0.0-6.0); HEMATOCRIT 39 % (39-51); HEMOGLOBIN 12.4 g/dL (13.5-17.5); LYMPHOCYTES # (AUTO) 2.2 /CMM (0.8-4.8); LYMPHOCYTES % (AUTO) 11.2 % (20.0-44.0); MEAN CORPUSCULAR HEMOGLOBIN 24 PG (26.0-33.0); MEAN CORPUSCULAR HGB CONC 32 g/dl (31.0-36.0); MEAN CORPUSCULAR VOLUME 75 fL (80-96); MONOCYTES # (AUTO) 1.5 /CMM (0.1-1.30); MONOCYTES % (AUTO) 7.5 % (2.0-12.0); NEUTROPHILS % (AUTO) 80.3 % (43.0-81.0); PLATELET COUNT (AUTO) 454 /CMM (150-450); RDW COEFFICIENT OF VARIATION 25.8 (11.5-15.0); RED BLOOD CELL COUNT(AUTO) 5.17 MIL/uL (4.5-6.0); WHITE BLOOD COUNT (AUTO) 19.9 K/uL (4.3-11.0)
--- NOTE | 2017-04-21 06:47 | NUR ---
TELE1/RN PATIENT REMOVED THE COLOSTOMY BAG THAT I PLACED EARLIER.
[2017-04-21 07:14] LABS: CALCIUM, SERUM 8.2 mg/dL (8.5-10.1); MAGNESIUM 2.4 mg/dL (1.8-2.4); PHOSPHORUS 3.8 mg/dL (2.5-4.9); POTASSIUM 3.4 mmol/L (3.5-5.1)
[2017-04-21 08:00] VITALS: BP 128/76
--- NOTE | 2017-04-21 08:00 | NUR ---
SENIOR PATROL AGENT NOTES RECEIVED PATIENT IN BED, AWAKE. ALERT AND ORIENTED X 3. PATIENT VERY AGITATED, REFUSED TO HAVE BODY CHECKED. DENIES ANY PAIN AT THIS TIME. COMPLAIN OF DISCOMFORT AT COLOSTOMY SITE, COLOSTOMY BAG CHANGED, KEEP CLEAN AND DRY, WILL INFORM MD ABOUT ENLARGED STOMA. PATIENT ON ROOM AIR, NO SOB, STILL REFUSES TO PLACE TELEMONITOR, EXPLAIN THE IMPORTANCE BUT STILL NON COMPLIANCE. STARTED IV ON LEFT AC GAUGE 22, INTACT AND PATENT. DR CASTILLO NOTIFIED BY BALLISTICS TEACHER THAT PATIENT HAS HALLUCINATION, AGITATION, AND NON COMPLIANT WITH CARE, MD ORDERED HALDOL 1 MG IM. WU CATH IN PLACE WITH YELLOW CLEAR URINE DRAINING. BED IN LOW POSITION, SIDE RAILS UP X2, LOCKED, SITTER AT BEDSIDE, CALL LIGHT IN REACH.PATIENT REFUSED TO EAT BREAKFAST, EXPLAIN THE IMPORTANCE OF DIET. WILL CONTINUE TO MONITOR ACCORDINGLY.
[2017-04-21] MEDS ORDERED: HALOPERIDOL LACTATE INJ 5 MG/ML VIAL IM ONE (08:30)
[2017-04-21] MEDS: LACTOBACILLUS RHAMNOSUS GG 1 EACH CAP.SPRINK PO SCH ×2 (08:44→17:10)
[2017-04-21] MEDS: SERTRALINE HCL 25 MG TABLET PO SCH (08:44)
--- NOTE | 2017-04-21 09:00 | NUR ---
DOOR LINER NOTES PATIENT STILL AGITATED, NON COMPLIANT WITH CARE. HALDOL 1 MG IM GIVEN AT GLUTEAL SITE. WILL CONTINUE TO MONITOR.
[2017-04-21 09:53] LABS: BAND % (MANUAL) 2 % (0.0-5.0); EOSINOPHILS % (MANUAL) 1 % (0-4); LYMPHOCYTES % (MANUAL) 18 % (16-48); MONOCYTES % (MANUAL) 7 % (0-11.0); NEUTROPHILS % (MANUAL) 72 (42-76)
[2017-04-21] MEDS: ACETAMINOPHEN 325 MG TABLET PO PRN (10:01)
--- NOTE | 2017-04-21 11:18 | NUR ---
PLUMBING AND HEATING MECHANIC NOTES DR COELLO NOTIFIED ABOUT PATIENT BEING AGITATED AND NON COMPLIANT IN CARE, PSYCH EVALUATION ORDERED. NOTIFIED ALSO NOTIFIED ABOUT THE ENLARGE STOMA AND SAID THAT SHE WILL LOOK AT IT. FOOT DR SEE PATIENT AT BEDSIDE AND ORDERED HYDROGEL DAILY.
[2017-04-21] MEDS ORDERED: POTASSIUM CHLORIDE 20 MEQ TAB.PRT.SR PO ONE (11:30)
--- NOTE | 2017-04-21 11:30 | NUR ---
INJECTION SPECIALIST NOTE CHARGE NURSE AWARE THAT DR CHAVARRIA SEE SUPERVISOR WILL COME TO SEE PATIENT
[2017-04-21 12:00] VITALS: BP 149/92
--- NOTE | 2017-04-21 12:13 | NUR ---
GENERATOR WORKER NOTES SPOKE WITH DR COELLO ABOUT PATIENT BECOMING AGITATED AGAIN, NEW ORDER OF ATIVAN [address] COELLO SAW THE ENLARGED STOMA. WILL CONTINUE TO MONITOR.
[2017-04-21 12:30] LABS: IRON, SERUM 32 ug/dl (50-175); TOTAL IRON BINDING CAPACITY 230 ug/dl (250-450)
[2017-04-21] MEDS ORDERED: LORAZEPAM INJ 2 MG/ML VIAL IV ONE (12:30)
[2017-04-21] MEDS: IV NS 0.9% 1,000 ML IV PRN (13:11)
--- NOTE | 2017-04-21 13:11 | NUR ---
FIBERGLASS CONTAINER WINDING OPERATOR NOTE RT AC HL INSERTED JARED 22WITH GOOD BLOOD RETURN ,STARTED IVF NS AT 75 ML PER HOUR ORDERED
--- NOTE | 2017-04-21 17:00 | NUR ---
TRIAL LAWYER NOTE STILL REFUSED TO APPLY TELE MONITOR ALSO REFUSING TO DO PX OF PROTRUDING STOMA ON LT LOWER ABDOMEN , CADEN FOR DR KEE SURGEON SEEN PATENT
--- NOTE | 2017-04-21 18:55 | NUR ---
PET FEEDER NOTE HAVING DINNER , ABLE TO EAT SELF 100 OF DINNER , SAMARA TO MAKE BM ,KEEP CLEAN DRY , ALL NEEDS ATTENDED, SITTER AT BED SIDE, WILL CONT TO MONITOR CLOSELY
[2017-04-21] MEDS ORDERED: FEE PK DOSING 1 MIN EA MC ONE (18:59)
--- NOTE | 2017-04-21 19:01 | NUR ---
SOLDERING INSPECTOR NOTE ALLOW TO PLACE TELE MONITOR, ST 106 AT THIS TIME , WILL CONT TO MONITOR CLOSELY
--- NOTE | 2017-04-21 19:10 | NUR ---
RN OPENING NOTES REPORT RECEIVED FROM SILVIO DELONG. PATIENT A/A/O X1-3 W/ SOME CONFUSION. NO C/O DIFFICULTY BREATHING, ON ROOM AIR. ON TELE SINUS TACHY IN THE 100S. COLOSTOMY BAG INTACT. WU CATH INTACT AND DRAINING YELLOW URINE. RIGHT AC #22 CDI W/ NS @ 75 ML/HR. NO BEHAVIORAL ISSUES @ THIS TIME. DENIES ANY PAIN OR DISCOMFORT. SAFETY MEASURES IN PLACE. SIDE RAILS UP, BED LOCKED AND IN LOWEST POSITION, CALL LIGHT WITHIN REACH. SITTER @ BEDSIDE. WILL CONTINUE TO MONITOR.
[2017-04-21 20:00] VITALS: BP 119/70
[2017-04-21] MEDS: VANCOMYCIN 1.5 GM in IV D5W 500 ML IV SCH (20:30)
[2017-04-21] MEDS: ZOLPIDEM TARTRATE 5 MG TABLET PO PRN (21:36)
[2017-04-21] MEDS: MEROPENEM 500 MG in IV NS 0.9% 50 ML IV SCH (23:05)
[2017-04-22] VITALS: BP 122/82
[2017-04-22 04:00] VITALS: BP 130/73
[2017-04-22] MEDS: MEROPENEM 500 MG in IV NS 0.9% 50 ML IV SCH ×3 (05:12→21:53)
[2017-04-22] MEDS: IV NS 0.9% 1,000 ML IV PRN ×2 (05:16→22:01)
--- NOTE | 2017-04-22 07:00 | NUR ---
RN NOTES RECEIVED PT ON BED , A/Ox3 , WITH PERIODS OF CONFUSION , RESPIRATION EVEN AND UNLABORED, ON RA NO SOB NOTED, ON TELE SR WITH PVC'S , COLOSTOMY BAG INTACT. WU CATH INTACT AND DRAINING YELLOW URINE. RIGHT AC #22 CDI W/ NS @ 75 ML/HR. SITTER AT THE BEDSIDE FOR SAFETY PRECAUTIONS , SAFETY MEASURES IN PLACE. SIDE RAILS UPx2, CALL LIGHT WITHIN EASY REACH , BED LOCKED AND IN LOWEST POSITION, WILL CONTINUE TO MONITOR PT CLOSELY AND NOTIFY MD FOR ANY SIGNIFICANT CHANGES
[2017-04-22 07:21] LABS: BASOPHILS # (AUTO) 0.1 /CMM (0.0-0.2); BASOPHILS % (AUTO) 1.6 % (0.0-2.0); EOSINOPHILS # (AUTO) 0.5 /CMM (0.0-0.7); HEMATOCRIT 35 % (39-51); HEMOGLOBIN 11.2 g/dL (13.5-17.5); LYMPHOCYTES # (AUTO) 1.7 /CMM (0.8-4.8); LYMPHOCYTES % (AUTO) 23.8 % (20.0-44.0); MEAN CORPUSCULAR HEMOGLOBIN 24 PG (26.0-33.0); MEAN CORPUSCULAR HGB CONC 32 g/dl (31.0-36.0); MEAN CORPUSCULAR VOLUME 75 fL (80-96); MONOCYTES # (AUTO) 0.6 /CMM (0.1-1.30); MONOCYTES % (AUTO) 8.6 % (2.0-12.0); NEUTROPHILS # (AUTO) 4.3 /CMM (1.8-8.9); PLATELET COUNT (AUTO) 385 /CMM (150-450); RDW COEFFICIENT OF VARIATION 25.8 (11.5-15.0); RED BLOOD CELL COUNT(AUTO) 4.62 MIL/uL (4.5-6.0); WHITE BLOOD COUNT (AUTO) 7.2 K/uL (4.3-11.0)
--- NOTE | 2017-04-22 07:26 | NUR ---
RN CLOSING NOTES PATIENT AWAKE IN BED. NO RESPIRATORY DISTRESS NOTED THROUGHOUT SHIFT. REMAINED SINUS RHYTHM ON TELE. OSTOMY BAG REPLACED. NO BEHAVIORAL ISSUES DURING SHIFT. WILL ENDORSE GATITO TO AM NURSE.
[2017-04-22 07:29] LABS: MAGNESIUM 1.7 mg/dL (1.8-2.4); PHOSPHORUS 3.3 mg/dL (2.5-4.9)
[2017-04-22 07:37] LABS: CREATININE 0.8 mg/dL (0.6-1.3); POTASSIUM 3.5 mmol/L (3.5-5.1)
[2017-04-22 08:00] VITALS: BP 107/63
[2017-04-22] MEDS: LACTOBACILLUS RHAMNOSUS GG 1 EACH CAP.SPRINK PO SCH ×2 (08:48→16:52)
[2017-04-22] MEDS: HYDROGEL DRESSING 90 GM TUBE TP SCH (08:49)
[2017-04-22] MEDS: SERTRALINE HCL 25 MG TABLET PO SCH (08:49)
--- NOTE | 2017-04-22 10:22 | NUR ---
WOUND CARE CONSULT ASSISTANT TEACHING PROFESSOR WILL DEFER ALL WOUND TREATMENT PLANS TO SURGICAL TEAM AT THIS TIME. PATIENT NOTED TO HAVE ALL PREVENTION MEASURES IN PLACE. MD IN AGREEMENT WITH PLAN OF CARE.
[2017-04-22] MEDS ORDERED: NALOXONE PREFILLED SYRINGE 2 MG/2 ML SYRINGE ONE (10:38)
[2017-04-22] MEDS ORDERED: ONDANSETRON HCL/PF 4 MG/2 ML VIAL ONE (10:39)
[2017-04-22] MEDS: Magnesium 1GM/D5W 100ML PREMIX 100 ML IV SCH ×2 (11:56→13:08)
[2017-04-22] MEDS: MULTIVITAMINS,THERAGRAN 1 UDTAB TABLET PO SCH (11:56)
[2017-04-22] MEDS: ZINC SULFATE 220 MG CAPSULE PO SCH (11:56)
[2017-04-22 12:00] VITALS: BP 103/60
[2017-04-22] MEDS: ACETAMINOPHEN 325 MG TABLET PO PRN (13:15)
[2017-04-22] MEDS: BACLOFEN (10 MG) 10 MG TABLET PO PRN ×2 (13:15→20:31)
[2017-04-22] MEDS ORDERED: SILVER NITRATE APPLICATOR 1 EA BOX TP STA (14:04)
[2017-04-22 16:00] VITALS: BP 121/57
[2017-04-22] MEDS: PROSOURCE / PROSTAT (PYXIS) 30 ML UDC GT SCH (16:52)
--- NOTE | 2017-04-22 18:40 | NUR ---
RN NOTES PT AT REST , APOORVA ANY DISTRESS , MEDICATED PER MD ORDER , NS AT 75CC/HR RUNNING VIA [facility] IV SITE, SR UP x3, CALL LIGHT WITHIN EASY REACH, NO SIGNIFICANT CHANGES NOTED ON THIS SHIFT.
--- NOTE | 2017-04-22 20:04 | NUR ---
RN INITIAL TELE NOTES RECEIVED PT FROM AM SHIFT FOR GATITO ON BED , A/Ox3 , WITH PERIODS OF CONFUSION , RESPIRATION EVEN AND UNLABORED, ON RA NO SOB NOTED, ON TELE SR WITH PVC'S , COLOSTOMY BAG INTACT. WU CATH INTACT AND DRAINING YELLOW URINE. RIGHT AC #22 CDI W/ NS @ 75 ML/HR. SITTER AT THE BEDSIDE FOR SAFETY PRECAUTIONS , SAFETY MEASURES IN PLACE. SIDE RAILS UPx2, CALL LIGHT WITHIN EASY REACH , BED LOCKED AND IN LOWEST POSITION, WILL CONTINUE TO MONITOR PT CLOSELY AND NOTIFY MD FOR ANY SIGNIFICANT CHANGES
[2017-04-22 20:07] VITALS: BP 130/70
[2017-04-22] MEDS: VANCOMYCIN 1.5 GM in IV D5W 500 ML IV SCH (20:31)
[2017-04-22] MEDS: ZOLPIDEM TARTRATE 5 MG TABLET PO PRN (22:20)
[2017-04-23] VITALS (8 sets, daily range): BP systolic 114–129; BP diastolic 64–80
[2017-04-23] MEDS: MEROPENEM 500 MG in IV NS 0.9% 50 ML IV SCH (04:47)
--- NOTE | 2017-04-23 06:07 | NUR ---
RN CLOSING TELE NOTES ENDORSED PT TO AM SHIFT FOR GATITO ON BED , A/Ox3 , RESPIRATION EVEN AND UNLABORED, ON RA NO SOB NOTED, ON TELE SR WITH PVC'S , COLOSTOMY BAG INTACT. WU CATH INTACT AND DRAINING YELLOW URINE. RIGHT AC #22 CDI W/ NS @ 75 ML/HR. SITTER AT THE BEDSIDE FOR SAFETY PRECAUTIONS , SAFETY MEASURES IN PLACE. SIDE RAILS UPx2, CALL LIGHT WITHIN EASY REACH , BED LOCKED AND IN LOWEST POSITION, WILL CONTINUE TO MONITOR PT CLOSELY AND NOTIFY MD FOR ANY SIGNIFICANT CHANGES.
--- NOTE | 2017-04-23 07:05 | NUR ---
MAINTENANCE SHOP WELDER NOTE: RECEIVED PATIENT RESTING COMFORTABLY IN BED. PATIENT IS A&OX3. ON RA WITH NO RESPIRATORY DISTRESS OR SOB NOTED. R HAND G #2 WITH NS RUNNING AT 75CC/HR. COLOSTOMY INTACT. ON TELE SR IN 80S. FC DRAINING TO GRAVITY WITH SEDIMENT AND YELLOW. BLE DRESSING CLEAN, DRY AND INTACT. BED LOW, LOCKED, SIDE RAILS UP X3 WITH CALL LIGHT WITHIN REACH. 1:1 SITTER AT BEDSIDE FOR SAFETY. WILL CONT TO MONITOR.
[2017-04-23 07:19] LABS: BASOPHILS # (AUTO) 0.2 /CMM (0.0-0.2); BASOPHILS % (AUTO) 2.3 % (0.0-2.0); EOSINOPHILS # (AUTO) 0.5 /CMM (0.0-0.7); EOSINOPHILS % (AUTO) 5.7 % (0.0-6.0); HEMATOCRIT 35 % (39-51); HEMOGLOBIN 11.1 g/dL (13.5-17.5); LYMPHOCYTES # (AUTO) 2.1 /CMM (0.8-4.8); LYMPHOCYTES % (AUTO) 23.4 % (20.0-44.0); MEAN CORPUSCULAR HEMOGLOBIN 24 PG (26.0-33.0); MEAN CORPUSCULAR HGB CONC 32 g/dl (31.0-36.0); MEAN CORPUSCULAR VOLUME 75 fL (80-96); MONOCYTES # (AUTO) 0.7 /CMM (0.1-1.30); MONOCYTES % (AUTO) 8.5 % (2.0-12.0); NEUTROPHILS # (AUTO) 5.3 /CMM (1.8-8.9); NEUTROPHILS % (AUTO) 60.1 % (43.0-81.0); PLATELET COUNT (AUTO) 327 /CMM (150-450); RDW COEFFICIENT OF VARIATION 26.2 (11.5-15.0); RED BLOOD CELL COUNT(AUTO) 4.64 MIL/uL (4.5-6.0); WHITE BLOOD COUNT (AUTO) 8.9 K/uL (4.3-11.0)
--- NOTE | 2017-04-23 07:21 | NUR ---
THROUGH SHIFT NOTIFIED PT THAT STOOL COLLECTION WAS ORDERED, PT AWARE, VERY INDEPENDENT, SUGGESTED TO COLLECT STOOL BY SELF EXPLAINED BENEFIT, OFFERED THROUGH SHIFT PT DECLINED. ENDORSED TO F/U TO AM CHARGE.
[2017-04-23 07:56] LABS: CALCIUM, SERUM 8.9 mg/dL (8.5-10.1); CREATININE 0.6 mg/dL (0.6-1.3); MAGNESIUM 1.7 mg/dL (1.8-2.4); PHOSPHORUS 3.4 mg/dL (2.5-4.9); POTASSIUM 3.9 mmol/L (3.5-5.1)
[2017-04-23] MEDS: MULTIVITAMINS,THERAGRAN 1 UDTAB TABLET PO SCH (08:04)
[2017-04-23] MEDS: ZINC SULFATE 220 MG CAPSULE PO SCH (08:04)
[2017-04-23] MEDS: SERTRALINE HCL 25 MG TABLET PO SCH (08:05)
[2017-04-23] MEDS: ACETAMINOPHEN 325 MG TABLET PO PRN ×2 (08:05→21:11)
[2017-04-23] MEDS: LACTOBACILLUS RHAMNOSUS GG 1 EACH CAP.SPRINK PO SCH ×2 (08:05→16:03)
[2017-04-23] MEDS: HYDROGEL DRESSING 90 GM TUBE TP SCH (08:08)
[2017-04-23] MEDS: BACLOFEN (10 MG) 10 MG TABLET PO PRN ×2 (08:09→21:10)
[2017-04-23] MEDS: PROSOURCE / PROSTAT (PYXIS) 30 ML UDC GT SCH ×2 (08:10→16:03)
[2017-04-23 08:33] LABS: BAND % (MANUAL) 1 % (0.0-5.0); EOSINOPHILS % (MANUAL) 5 % (0-4); LYMPHOCYTES % (MANUAL) 26 % (16-48); MONOCYTES % (MANUAL) 10 % (0-11.0); NEUTROPHILS % (MANUAL) 58 (42-76)
[2017-04-23] MEDS: MEROPENEM 1 G in IV NS 0.9% 100 ML IV SCH ×2 (12:06→23:06)
[2017-04-23] MEDS: IV NS 0.9% 1,000 ML IV PRN (12:09)
[2017-04-23] MEDS: Magnesium 1GM/D5W 100ML PREMIX 100 ML IV SCH ×2 (13:06→16:05)
[2017-04-23] MEDS ORDERED: Magnesium 1GM/D5W 100ML PREMIX 100 ML IV SCH (16:30)
--- NOTE | 2017-04-23 18:37 | NUR ---
ENTERPRISE MANAGER NOTE: NO SIGNIFICANT CHANGES NOTED DURING SHIFT. PATIENT REMAINED STABLE AND COOPERATIVE. COLOSTOMY BAG AT LLQ INTACT, WU DRAINING TO GRAVITY. NS RUNNING AT 75CC/HR ON RH. PATIENT DENIES ANY DISTRESS. 1:[address] STEVENSON AT BEDSIDE SEEING PT. ORDERS CARRIED OUT. WILL ENDORSE TO NATURAL [employer] PLANT SUPERVISOR NURSE FOR GATITO.
--- NOTE | 2017-04-23 19:00 | NUR ---
RN MS NOTES RECEIVED PT IN BED, ALERT X3, NOT IN ACUTE DISTRESS, IV SITE INTACT NO S/S OF INFILTRATION. CALL LIGHT WITHIN REACH. SAFETY MEASURES IN PLACE, ON LOW BED, WILL CONTINUE TO MONITOR PT.
[2017-04-23] MEDS: VANCOMYCIN 1.5 GM in IV D5W 500 ML IV SCH (20:35)
[2017-04-23] MEDS: QUETIAPINE FUMARATE 25 MG TABLET PO SCH (21:09)
[2017-04-24 04:00] VITALS: BP 128/75
[2017-04-24] MEDS: MEROPENEM 1 G in IV NS 0.9% 100 ML IV SCH ×3 (05:35→21:52)
--- NOTE | 2017-04-24 06:38 | NUR ---
MS RN CLOSING NOTES PATIENT COMFORTABLY ASLEEP AND EASILY AWAKEN, HEAD OF BED ELEVATED FOR BETTER LUNG EXPANSION. TOLERATING ROOM AIR 02 SAT 98%. IV HYDRATION ONGOING NS AT 75 MLS/HR, IV SITE NO S/S OF INFILTRATED, NOT IN ACUTE DISTRESS. RESPIRATIONS EVEN AND UNLABORED, NO SOB, NO COUGH, NO CONGESTION. SKIN WARM AND DRY TO TOUCH, AFEBRILE, ALL NURSING CARE RENDERED . NEEDS ATTENDED AND ANTICIPATED. 1:1 SITTER. KEPT CLEAN AND DRY AND COMFORTABLE, GOOD SKIN CARE PROVIDED. FREQUENT VISUAL CHECK DONE FOR SAFETY EVERY 2 HOURS. GOOD SKIN CARE PROVIDED.. SAFE HAZARD FREE ENVIRONMENT PROVIDED. CALL LIGHT WITHIN EASY TO REACH, ON LOW BED AT ALL TIMES TO ENSURE SAFETY, WILL ENDORSE TO THE NEXT SHIFT CONTINUE PLAN OF CARE. FC INTACT DRAINING YELLOW VIA GRAVITY WITH NO SEDIMENTS NO HEMATURIA NO CLOUDINESS GOOD FC CARE PROVIDED.
[2017-04-24 07:37] LABS: CALCIUM, SERUM 7.7 mg/dL (8.5-10.1); CREATININE 0.6 mg/dL (0.6-1.3); POTASSIUM 3.8 mmol/L (3.5-5.1)
[2017-04-24 08:00] VITALS: BP 118/72
--- NOTE | 2017-04-24 08:00 | NUR ---
no complaints of noted at this time. colostomy intact. iv draining per order without s/sx of infiltration noted. denies any pain or other at this atime. call light available and within reach.
[2017-04-24] MEDS: ZINC SULFATE 220 MG CAPSULE PO SCH (08:51)
[2017-04-24] MEDS: LACTOBACILLUS RHAMNOSUS GG 1 EACH CAP.SPRINK PO SCH ×2 (08:51→16:46)
[2017-04-24] MEDS: SERTRALINE HCL 25 MG TABLET PO SCH (08:52)
[2017-04-24] MEDS: BACLOFEN (10 MG) 10 MG TABLET PO PRN ×3 (08:52→20:21)
[2017-04-24] MEDS: PROSOURCE / PROSTAT (PYXIS) 30 ML UDC GT SCH ×2 (08:53→16:46)
[2017-04-24] MEDS: MULTIVITAMINS,THERAGRAN 1 UDTAB TABLET PO SCH (08:56)
[2017-04-24] MEDS ORDERED: VANC1.5P10 IV (10:50)
[2017-04-24] MEDS ORDERED: BACL10TA PO (10:50)
[2017-04-24] MEDS ORDERED: MERO1VIA IV (10:50)
[2017-04-24] MEDS ORDERED: QUET25TA PO (10:59)
--- NOTE | 2017-04-24 11:30 | NUR ---
pt takes out iv on his own. pending discharge was canceld. technical writer attempts to begin periperal iv x 2 unsuccessfu. pt to have midline place by"[place]". will miss 1200 merrepenem dose. will call pharmacy for time adjustmen. charge nurse aware.
--- NOTE | 2017-04-24 12:00 | NUR ---
VITAL SIGNS NOT DONE AT 1200... PATIENT MED SURG Addendum: 04/24/17 at 1444 by GRABIEL STALLWORTH RN Amended: Links added.
[2017-04-24] MEDS: IV NS 0.9% 1,000 ML IV PRN (14:53)
[2017-04-24] MEDS: HYDROGEL DRESSING 90 GM TUBE TP SCH (14:56)
--- NOTE | 2017-04-24 15:04 | NUR ---
MS RN NOTES RECEIVED CARE OF PATIENT FROM RN. PATIENT STABLE NO COMPLICATIONS. DENIES SOB, DIFFICULTY BREATHING OR PAIN AT THIS TIME. ALL NEEDS MET AND STEEPLE JACK JUST APPLIED NEW IV LINE PATIENT PULLED OUT PREVIOUS ONE. SITTER AT SIDE. RAILS UPX3 FOR SAFETY AND WILL ROUND Q2H OR LESS PER NEEDS.
--- NOTE | 2017-04-24 15:49 | NUR ---
PER CASANDRA BARRIOS D/C PT. TODAY R/T IV ANTIBIOTICS AND NO PLACE WANTS TO TAKE PATIENT.FACILITATED TO DR. COELLO.
--- NOTE | 2017-04-24 18:38 | NUR ---
MS RN CLOSING PATIENT STABLE, SITTER AT SIDE. ALL DUE MEDS GIVEN AND ALL NEEDS MET. PATIENT TURNED Q2H AND OFFLOADED. SAFE ENVIRONMENT MET, RAILS UPX3 BED ALARM ON. CARE WILL BE ENDORSED TO RN FOR GATITO
--- NOTE | 2017-04-24 19:00 | NUR ---
RN NOTE RECEIVED REPORT. PT AAOX3, NO S/S OR C/O PAIN OR DISCOMFRT. IV INTACT AND PATENT. ALL NEEDS ATTENED, WILL CONT TO MONITOR.
[2017-04-24 20:00] VITALS: BP_SYST 124; BP_SYST 130; BP_DIAS 69; BP_DIAS 74
[2017-04-24] MEDS: VANCOMYCIN 1.5 GM in IV D5W 500 ML IV SCH (20:02)
[2017-04-24] MEDS: ACETAMINOPHEN 325 MG TABLET PO PRN (20:22)
[2017-04-24] MEDS: QUETIAPINE FUMARATE 25 MG TABLET PO SCH (21:52)
[2017-04-24] MEDS: ZOLPIDEM TARTRATE 5 MG TABLET PO PRN (21:52)
[2017-04-25] VITALS: BP_SYST 127; BP_SYST 138; BP_DIAS 62; BP_DIAS 77
[2017-04-25 04:00] VITALS: BP 129/75
[2017-04-25] MEDS: MEROPENEM 1 G in IV NS 0.9% 100 ML IV SCH ×3 (04:54→21:06)
--- NOTE | 2017-04-25 06:47 | NUR ---
RN NOTE NO SIGNIFICANT CHANGES OVERNIGHT. PT SLEPT WELL, NO DISTRESS NOTED AT THIS TIME. AAXO4.IV INTACT AND PATENT, F/C DRAINING. WILL WILL F/U WITH DAY SHIFT FOR GATITO WAITING SNF PLACEMENT.
--- NOTE | 2017-04-25 07:20 | NUR ---
MS RN OPENING NOTES RECEIVED PATIENT IN BED RESTING. ALERT AND ORIENTED X3. PATIENT IS CALM AND COOPERATIVE. NO ACUTE DISTRESS, NO SOB NOTED. IV SITE INTACT AND PATENT. WU CATHETER IN PLACE DRAINING YELLOW CLEAR URINE. COLOSTOMY BAG IN PLACE. KEPT PATIENT SAFE AND COMFORTABLE. SITTER ON BEDSIDE FOR SAFETY. BED IN LOW POSITION, SIDERAILS UPX2, HOB ELEVATED, CALL LIGHT IN REACH. WILL CONTINUE TO MONITOR ACCORDINGLY.
[2017-04-25 07:26] LABS: CALCIUM, SERUM 8.4 mg/dL (8.5-10.1); CREATININE 0.7 mg/dL (0.6-1.3); MAGNESIUM 1.7 mg/dL (1.8-2.4)
[2017-04-25 08:00] VITALS: BP 108/63
[2017-04-25] MEDS: PROSOURCE / PROSTAT (PYXIS) 30 ML UDC GT SCH (09:00)
[2017-04-25] MEDS: LACTOBACILLUS RHAMNOSUS GG 1 EACH CAP.SPRINK PO SCH ×2 (09:08→16:09)
[2017-04-25] MEDS: MULTIVITAMINS,THERAGRAN 1 UDTAB TABLET PO SCH (09:08)
[2017-04-25] MEDS: SERTRALINE HCL 25 MG TABLET PO SCH (09:09)
[2017-04-25] MEDS: ZINC SULFATE 220 MG CAPSULE PO SCH (09:09)
[2017-04-25] MEDS: HYDROGEL DRESSING 90 GM TUBE TP SCH (09:14)
[2017-04-25] MEDS ORDERED: VANCOMYCIN 1.5 GM in IV D5W 500 ML IV SCH (10:00)
[2017-04-25] MEDS ORDERED: Magnesium 1GM/D5W 100ML PREMIX 100 ML IV SCH (10:32)
[2017-04-25] MEDS: ACETAMINOPHEN 325 MG TABLET PO PRN ×2 (11:54→18:29)
[2017-04-25 16:00] VITALS: BP 128/68
[2017-04-25] MEDS: Magnesium 1GM/D5W 100ML PREMIX 100 ML IV SCH ×2 (16:09→17:41)
[2017-04-25] MEDS: PROSOURCE / PROSTAT (PYXIS) 30 ML UDC PO SCH (16:10)
--- NOTE | 2017-04-25 19:25 | NUR ---
RN NOTES PATIENT RESTING IN BED. NO ACUTE DISTRESS, NO SOB NOTED. DENIES PAIN OR DISCOMFORT. ALL NEEDS ATTENDED AND PROVIDED. KEPT PATIENT SAFE AND COMFORTABLE. BED IN LOW POSITION, LOCKED SIDERAILS UP X2. CALL LIGHT WITHIN REACH. ENDORSED TO PARCEL POST OFFICER RN FOR GATITO.
[2017-04-25 20:00] VITALS: BP 127/62
[2017-04-25] MEDS: QUETIAPINE FUMARATE 25 MG TABLET PO SCH (21:06)
[2017-04-25] MEDS: ZOLPIDEM TARTRATE 5 MG TABLET PO PRN (22:53)
[2017-04-25] MEDS: BACLOFEN (10 MG) 10 MG TABLET PO PRN (22:53)
--- NOTE | 2017-04-26 03:49 | NUR ---
MS RN NOTE PATIENT REFUSING WOUND CARE. PER PATIENT, DOES NOT WANT TO BE BOTHERED. EDUCATED PATIENT ON IMPORTANCE OF WOUND CARE. CONTINUES TO REFUSE. WILL TRY AGAIN LATER.
[2017-04-26] MEDS: MEROPENEM 1 G in IV NS 0.9% 100 ML IV SCH ×3 (05:44→20:45)
--- NOTE | 2017-04-26 06:27 | NUR ---
MS RN NOTE PATIENT STABLE. DENIES ANY PAIN OR SOB AT THIS TIME. PATIENT REFUSING WOUND CARE AND PICTURES AT THIS TIME. DRESSING C/D/I. WILL ENDORSE TO DAY SHIFT FOR GATITO.
[2017-04-26 06:43] LABS: CREATININE 0.7 mg/dL (0.6-1.3); POTASSIUM 4.3 mmol/L (3.5-5.1)
[2017-04-26 08:00] VITALS: BP 121/83
[2017-04-26] MEDS: LACTOBACILLUS RHAMNOSUS GG 1 EACH CAP.SPRINK PO SCH ×2 (08:20→18:02)
[2017-04-26] MEDS: MULTIVITAMINS,THERAGRAN 1 UDTAB TABLET PO SCH (08:20)
[2017-04-26] MEDS: ZINC SULFATE 220 MG CAPSULE PO SCH (08:20)
[2017-04-26] MEDS: SERTRALINE HCL 25 MG TABLET PO SCH (08:21)
[2017-04-26] MEDS: HYDROGEL DRESSING 90 GM TUBE TP SCH (08:22)
[2017-04-26] MEDS: BACLOFEN (10 MG) 10 MG TABLET PO PRN ×2 (08:26→20:49)
[2017-04-26] MEDS: PROSOURCE / PROSTAT (PYXIS) 30 ML UDC PO SCH ×2 (09:00→17:00)
[2017-04-26 16:00] VITALS: BP 149/83
[2017-04-26] MEDS: ACETAMINOPHEN 325 MG TABLET PO PRN (18:19)
--- NOTE | 2017-04-26 19:00 | NUR ---
RN CLOSING NOTES PATIENT IN BED RESTING. NO ACUTE DISTRESS, NO SOB NOTED. ALL NEEDS ATTENDED AND PROVIDED. KEPT PATIENT CLEAN AND COMFORTABLE. BED IN LOW POSITION, LOCKED, SIDERAILS UP X 2, CALL LIGHT IN REACH. ENDORSED TO ASSOCIATE FIELD SERVICE ENGINEER RN FOR GATITO.
--- NOTE | 2017-04-26 19:30 | NUR ---
MS RN NOTES RECEIVED ON BED A/O X4,BREATHING REGULAR,NOT IN ANY FORM OF DISTRESS.DENIES PAIN AT THE MOMENT.BILATERAL FOOT WITH DRESSING INTACT AND DRY.WITH WU CATH IN PLACE DRAINING YELLOWISH OUTPUT.WITH COLOSTOMY BAG IN PLACE.ISOLATION PRECAUTION FOR ESBL URINE/COLONIZED.SALINE LOCK LFA INTACT AND PATENT.CALL LIGHT IN REACH,NEEDS ANTICIPATED.
[2017-04-26 20:00] VITALS: BP 114/72
[2017-04-26 20:07] VITALS: BP 114/72
--- NOTE | 2017-04-26 20:49 | NUR ---
MS RN NOTES C/O MUSCLE SPASMS,MEDICATED WITH BACLOFEN 10MG PO ORDERED AND PER PATIENT REQUEST
--- NOTE | 2017-04-26 21:00 | NUR ---
MS RN NOTES DUE MERREM 1GM IVPB HUNG
[2017-04-26] MEDS: QUETIAPINE FUMARATE 25 MG TABLET PO SCH (22:03)
[2017-04-26] MEDS: ZOLPIDEM TARTRATE 5 MG TABLET PO PRN (22:03)
--- NOTE | 2017-04-26 22:03 | NUR ---
MS RN NOTES C/O INSOMNIA,MEDICATED WITH AMBIEN 5MG PO ORDERED
--- NOTE | 2017-04-27 00:11 | NUR ---
MS RN NOTES SLEEPING AT THIS TIME.WILL CONTINUE TO MONITOR STATUS.
[2017-04-27 03:56] VITALS: BP 116/72
[2017-04-27 04:00] VITALS: BP 116/72
[2017-04-27 04:01] VITALS: BP 116/76
[2017-04-27] MEDS: MEROPENEM 1 G in IV NS 0.9% 100 ML IV SCH ×3 (04:59→21:15)
--- NOTE | 2017-04-27 06:25 | NUR ---
MS/SUZY RN NOTES SLEPT WITH INTERVALS,BACLOFEN EFFECTIVE.IV ABX TOLERATED WELL.PLAN D/C TO [facility] BOARD AND CARE [phone].IN ACUTE DISTRESS.WILL ENDORSE TO DAY NURSE FOR GATITO.
--- NOTE | 2017-04-27 07:25 | NUR ---
RN NOTES RECEIVED PATIENT AWAKE ALERT AND ORIENTED X3 ABLE TO MAKE NEEDS KNOWN AND CARRY OUT CONVERSATION. RESPIRATIONS EVEN AND UNLABORED, DENIES ANY PAIN OR DISCOMFORT AT THIS TIME. LFA IV ACCESS PATENT AND INTACT, NO REDNESS OR INFILTRATION NOTED. KEPT CLEAN DRY AND COMFORTABLE WILL CONTINUE TO MONITOR AND CONTINUE CURRENT TREATMENT ORDERED
[2017-04-27 07:41] LABS: CALCIUM, SERUM 8.5 mg/dL (8.5-10.1); CREATININE 0.7 mg/dL (0.6-1.3)
[2017-04-27 08:00] VITALS: BP 105/67
[2017-04-27] MEDS: PROSOURCE / PROSTAT (PYXIS) 30 ML UDC PO SCH ×3 (08:27→16:30)
[2017-04-27] MEDS: SERTRALINE HCL 25 MG TABLET PO SCH (08:27)
[2017-04-27] MEDS: LACTOBACILLUS RHAMNOSUS GG 1 EACH CAP.SPRINK PO SCH ×2 (08:27→16:30)
[2017-04-27] MEDS: MULTIVITAMINS,THERAGRAN 1 UDTAB TABLET PO SCH (08:27)
[2017-04-27] MEDS: ZINC SULFATE 220 MG CAPSULE PO SCH (08:28)
[2017-04-27] MEDS: BACLOFEN (10 MG) 10 MG TABLET PO PRN ×2 (08:33→16:30)
[2017-04-27] MEDS: HYDROGEL DRESSING 90 GM TUBE TP SCH (08:35)
--- NOTE | 2017-04-27 18:34 | NUR ---
RN NOTES PATIENT AWAKE ALERT AND ORIENTED X3 ABLE TO MAKE NEEDS KNOWN AND CARRY OUT CONVERSATION. RESPIRATIONS EVEN AND UNLABORED, DENIES ANY PAIN OR DISCOMFORT AT THIS TIME. LFA IV ACCESS PATENT AND INTACT, NO REDNESS OR INFILTRATION NOTED. KEPT CLEAN DRY AND COMFORTABLE WILL CONTINUE TO MONITOR AND CONTINUE CURRENT TREATMENT ORDERED, WILL CONTINUE TO MONITOR AND ENDORSE TO NEXT SHIFT FOR CONTINUITY OF CARE
--- NOTE | 2017-04-27 19:35 | NUR ---
MS/RN NOTES RECEIVED PT. SITTING UP IN BED. AWAKE, ALERT AND ORIENTED X3. BREATHING EVEN AND UNLABORED ON ROOM AIR. NO SOB, RESPIRATORY DISTRESS OR COMPLAINTS OF PAIN NOTED AT THIS TIME. PT. WITH LEFT FOREARM 20 GAUGE IV SALINE LOCK PRESENT, PATENT AND INTACT. PT. WITH LEFT LOWER QUADRANT COLOSTOMY BAG PRESENT AND INTACT. PT. WITH WU CATHETER PRESENT, PATENT AND INTACT DRAINING CLEAR WESLY COLORED URINE. BILATERAL LOWER EXTREMITIES OFFLOADED. BED IN LOWEST POSITION, CALL LIGHT WITHIN REACH, SIDE RAILS UP X3, WILL CONTINUE TO MONITOR.
[2017-04-27 20:00] VITALS: BP 106/62
[2017-04-27] MEDS: QUETIAPINE FUMARATE 25 MG TABLET PO SCH (21:15)
[2017-04-27] MEDS: ZOLPIDEM TARTRATE 5 MG TABLET PO PRN (23:45)
[2017-04-28 04:00] VITALS: BP_SYST 104; BP_SYST 110; BP_DIAS 60; BP_DIAS 67
[2017-04-28] MEDS: MEROPENEM 1 G in IV NS 0.9% 100 ML IV SCH ×3 (04:46→21:15)
--- NOTE | 2017-04-28 06:51 | NUR ---
MS/RN NOTES PT. IS LYING IN BED RESTING. BREATHING EVEN AND UNLABORED ON ROOM AIR. NO SOB, RESPIRATORY DISTRESS OR COMPLAINTS OF PAIN NOTED AT THIS TIME. PT. WITH LEFT FOREARM 20 GAUGE IV SALINE LOCK PRESENT, PATENT AND INTACT. PT. WITH LEFT LOWER QUADRANT COLOSTOMY BAG PRESENT AND INTACT. PT. WITH WU CATHETER PRESENT, PATENT AND INTACT. EMPTIED 1000ML CLEAR WESLY COLORED URINE. BILATERAL LOWER EXTREMITIES OFFLOADED AT ALL TIMES. BED IN LOWEST POSITION, CALL LIGHT WITHIN REACH, SIDE RAILS UP X3, WILL ENDORSE TO DAYSHIFT NURSE FOR CONTINUITY OF CARE.
--- NOTE | 2017-04-28 07:29 | NUR ---
RN INITIAL NOTE REPORT RECEIVED FROM ARDEN DELONG PM SHIFT FOR GATITO. PT A/O X3 PT ON RA NO SOB. FC AND COLOSTOMY BAG INTACT. IV LFA #20 FLUSHED PATENT AND INTACT. WILL CONTINUE TO MONITOR. ALL SAFETY MEASURES IN PLACE.
[2017-04-28 08:00] VITALS: BP 104/61
[2017-04-28] MEDS: ZINC SULFATE 220 MG CAPSULE PO SCH (08:31)
[2017-04-28] MEDS: SERTRALINE HCL 25 MG TABLET PO SCH (08:31)
[2017-04-28] MEDS: LACTOBACILLUS RHAMNOSUS GG 1 EACH CAP.SPRINK PO SCH ×2 (08:31→16:24)
[2017-04-28] MEDS: MULTIVITAMINS,THERAGRAN 1 UDTAB TABLET PO SCH (08:31)
[2017-04-28] MEDS: PROSOURCE / PROSTAT (PYXIS) 30 ML UDC PO SCH ×2 (08:31→16:28)
[2017-04-28] MEDS: ACETAMINOPHEN 325 MG TABLET PO PRN ×2 (08:36→18:32)
[2017-04-28] MEDS: BACLOFEN (10 MG) 10 MG TABLET PO PRN ×3 (08:36→23:07)
[2017-04-28] MEDS: HYDROGEL DRESSING 90 GM TUBE TP SCH (08:38)
[2017-04-28 16:00] VITALS: BP 123/72
--- NOTE | 2017-04-28 19:24 | NUR ---
RN CLOSING NOTE REPORT GIVEN TO DORIAN FROM PM SHIFT FOR GATITO. PT A/O X3 PT ON RA NO SOB. FC AND COLOSTOMY BAG INTACT. IV LFA #20 FLUSHED AND INTACT. PT STABLE AND CALM THROUGH OUT SHIFT. ALL SAFETY MEASURES IN PLACE. ALL ORDERS CARRIED OUT.
[2017-04-28 20:00] VITALS: BP 127/66
--- NOTE | 2017-04-28 20:00 | NUR ---
RECEIVED PATIENT IN BED, PATIENT IS A&O X4, CALM AND COOPERATIVE. VSS, AFEBRILE, DENIES PAIN EDUCATION/INSTRUCTIONS ARE GIVEN, QUESTIONS ANSWERED. CALL LIGHT WITHIN REACH ENCOURAGE TO CALL FOR ASSISTANCE
[2017-04-28] MEDS: QUETIAPINE FUMARATE 25 MG TABLET PO SCH (21:15)
[2017-04-28] MEDS: ZOLPIDEM TARTRATE 5 MG TABLET PO PRN (23:07)
[2017-04-29 04:00] VITALS: BP 113/69
[2017-04-29] MEDS: MEROPENEM 1 G in IV NS 0.9% 100 ML IV SCH ×2 (04:58→13:10)
--- NOTE | 2017-04-29 07:15 | NUR ---
RN NOTES PT A&0X4 RESTING COMFORTABLY IN BED. ON ROOM AIR NO SOB NOTED. WU DRAINING TO GRAVITY. L THUMB 20GUAGE DRY AND INTACT. NO PAIN AT THIS TIME. NO DISTRESS NOTED. CALL LIGHT WITHIN REACH, SIDE RAILS UP X3, BED LOCKED AND IN LOWEST POSITION. WILL CONT TO MONITOR.
[2017-04-29 08:00] VITALS: BP 113/61
[2017-04-29] MEDS: LACTOBACILLUS RHAMNOSUS GG 1 EACH CAP.SPRINK PO SCH ×2 (08:42→16:19)
[2017-04-29] MEDS: SERTRALINE HCL 25 MG TABLET PO SCH (08:42)
[2017-04-29] MEDS: ZINC SULFATE 220 MG CAPSULE PO SCH (08:42)
[2017-04-29] MEDS: PROSOURCE / PROSTAT (PYXIS) 30 ML UDC PO SCH ×3 (08:42→17:00)
[2017-04-29] MEDS: MULTIVITAMINS,THERAGRAN 1 UDTAB TABLET PO SCH (08:42)
[2017-04-29] MEDS: BACLOFEN (10 MG) 10 MG TABLET PO PRN ×2 (08:45→16:19)
[2017-04-29] MEDS: HYDROGEL DRESSING 90 GM TUBE TP SCH (09:14)
--- NOTE | 2017-04-29 14:00 | NUR ---
RN NOTES PT STATED CAME IN WITH WU CATH AND KNOWS HOW TO TAKE CARE OF IT AND REFUSED TO HAVE WU DISCONTINUED , DR COELLO NOTIFIED.
--- NOTE | 2017-04-29 15:58 | NUR ---
RN NOTES PT HAS COMPLETED HIS 8 DAYS COURSE OF ABX AND CAN GO HOME WITHOUT ANY ABX PER DR MODE HELMS ORDER .
[2017-04-29 16:00] VITALS: BP 115/69
--- NOTE | 2017-04-29 18:17 | NUR ---
RN NOTES PT RESTING COMFORTABLY IN BED, NO DISTRESS NOTED, NO SOB NOTED AT THIS TIME. NO SIGNIFICANT CHANGES THROUGHOUT THE SHIFT. AWAITING AMBULANCE CONCRETE BUCKET UNLOADER AT 1900, PT WILL BE GOING TO HIS MOM'S HOUSE. CALL LIGHT WITHIN REACH, BED LOCKED AND IN LOWEST POSITION, SIDE RAILS UP X3.
--- NOTE | 2017-04-29 19:09 | NUR ---
RN NOTES REPORT GIVEN TO EMT, L THUMB IV REMOVED. DISCHARGE INSTRUCTIONS GIVEN TO PT.
--- NOTE | 2017-04-29 19:11 | NUR ---
RN NOTES DISCHARGE INSTRUCTIONS GIVEN TO PT, VERBALIZES UNDERSTANDING. PT REFUSED TO HAVE WU DISCONTINUED. VITAL SIGNS STABLE.
--- NOTE | 2017-04-29 20:25 | NUR ---
RN MS NOTE PT RECEIVED FROM AM NURSE. PT WAS D/C AND LEFT THE FLOOR WITH AMBULNZ TO HOME. ALL VITALS STABLE. PT IS COMFORTABLE. REINFORCED WOUND CARE FOR EMT. D/C COMPLETE
[2017-04-30] MEDS ORDERED: diphenhydrAMINE HCL 50 MG/ML VIAL ONE (03:53)
[2017-04-30] MEDS ORDERED: HALOPERIDOL LACTATE INJ 5 MG/ML VIAL ONE (03:53)
[2017-04-30] MEDS ORDERED: LORAZEPAM INJ 2 MG/ML VIAL ONE (03:54)
== END 2017-04-29 20:00 | disposition home or self-care (01) | DRG 710 ==
LOC: ER 18:09 → TELE1 22:28 → MEDSG1 04-23 16:24
PROVIDERS: ADMIT Family Medicine
PROC: 0QB20ZZ Excision of Right Pelvic Bone, Open Approach (ICD-10-PCS; principal; 2017-04-22)
DX: A41.9 Sepsis, unspecified organism (principal); G93.41 Metabolic encephalopathy; L89.523 Pressure ulcer of left ankle, stage 3; D68.59 Other primary thrombophilia; R53.2 Functional quadriplegia; L03.115 Cellulitis of right lower limb; L89.893 Pressure ulcer of other site, stage 3; E44.1 Mild protein-calorie malnutrition; L03.116 Cellulitis of left lower limb; E83.42 Hypomagnesemia; E83.51 Hypocalcemia; E66.01 Morbid (severe) obesity due to excess calories; N31.9 Neuromuscular dysfunction of bladder, unspecified; N39.0 Urinary tract infection, site not specified; Z74.01 Bed confinement status; Z93.3 Colostomy status; E78.5 Hyperlipidemia, unspecified; D50.9 Iron deficiency anemia, unspecified; B96.20 Unspecified Escherichia coli [E. coli] as the cause of diseases classified elsewhere; E87.6 Hypokalemia; F10.20 Alcohol dependence, uncomplicated; F15.10 Other stimulant abuse, uncomplicated; F25.9 Schizoaffective disorder, unspecified; G89.29 Other chronic pain; K43.5 Parastomal hernia without obstruction or gangrene; Z79.899 Other long term (current) drug therapy; Z87.11 Personal history of peptic ulcer disease; Z87.440 Personal history of urinary (tract) infections; Z91.19 Patient's noncompliance with other medical treatment and regimen; W34.00XS Accidental discharge from unspecified firearms or gun, sequela; F17.200 Nicotine dependence, unspecified, uncomplicated; Y90.0 Blood alcohol level of less than 20 mg/100 ml
CPT/HCPCS: 36415; 71250-TC; 80048-TC; 80061-TC; 80076-TC; 80202-TC; 80305; 81000-TC; 82272-TC; 82962-TC; 83540-TC; 83735-TC; 84100-TC; 85025-TC; 87040-TC; 87081-TC; 87086-TC; 87186-TC; A4216; A4217; A4606; A6248; A6253; A6402; A6403; G0480; J0696; J1200; J1630; J2060; J2185; J2310; J2405; J2543; J3370; J3475; J7030; J7040; J7050; J7060; Z7610

== ENCOUNTER 2017-05-01 13:22 | Inpatient (IN) | payer MEDICAID ==
[~2017-05-01] VITALS: Ht 182.9 cm; Wt 120.2 kg
[~2017-05-01 13:22] MED LIST changes: +BACL10TA PO; +MERO1VIA IV; -NITR100C6 PO; +QUET25TA PO; +VANC1.5P10 IV
--- NOTE | 2017-05-01 13:24 | NUR ---
PT BIBRA FROM HOME TO ER BED 15. PER REPORT, PT NEEDS COLOSTOMY CARE. DENIES ANY MEDICAL COMPLAINTS AT THIS TIME. NOTED TO BE TACHYCARDIC W/ HEART HEART OF 150. SEEN HERE MULTIPLE TIMES FOR METH AND ALCOHOL ABUSE. PLACED ON MONITOR. AWAITING MD COOMBS.
--- NOTE | 2017-05-01 13:30 | NUR ---
PT IS REFUSING TO BE TURNED. CONCERN ABOUT SACRAL PRESSURE SORE FOR HISTORY. ERMD MADE AWARE.
--- NOTE | 2017-05-01 13:48 | NUR ---
DR JONES AT BEDSIDE FOR EVAL.
[2017-05-01] MEDS ORDERED: IV NS 0.9% 1,000 ML BAG IV ONE ×3 (14:00→17:30)
--- NOTE | 2017-05-01 14:00 | NUR ---
PT REFUSING RECTAL TEMP CHECK.
--- NOTE | 2017-05-01 14:05 | NUR ---
RADIOLOGY AT BEDSIDE FOR CHEST XRAY.
[2017-05-01 14:11] LABS: BASOPHILS # (AUTO) 0.8 /CMM (0.0-0.2); BASOPHILS % (AUTO) 4.6 % (0.0-2.0); EOSINOPHILS % (AUTO) 0.1 % (0.0-6.0); HEMATOCRIT 45 % (39-51); HEMOGLOBIN 14.4 g/dL (13.5-17.5); LYMPHOCYTES # (AUTO) 1.1 /CMM (0.8-4.8); LYMPHOCYTES % (AUTO) 6.2 % (20.0-44.0); MEAN CORPUSCULAR HEMOGLOBIN 24 PG (26.0-33.0); MEAN CORPUSCULAR HGB CONC 32 g/dl (31.0-36.0); MEAN CORPUSCULAR VOLUME 76 fL (80-96); MONOCYTES # (AUTO) 0.9 /CMM (0.1-1.30); NEUTROPHILS # (AUTO) 15.2 /CMM (1.8-8.9); NEUTROPHILS % (AUTO) 84.1 % (43.0-81.0); PLATELET COUNT (AUTO) 608 /CMM (150-450); RDW COEFFICIENT OF VARIATION 24.8 (11.5-15.0); RED BLOOD CELL COUNT(AUTO) 5.93 MIL/uL (4.5-6.0)
[2017-05-01 14:16] LABS: CALCIUM, SERUM 8.9 mg/dL (8.5-10.1); CARBON DIOXIDE 25 mmol/L (21-32); CHLORIDE 106 mmol/L (98-107); CREATININE 0.9 mg/dL (0.6-1.3); GLUCOSE 129 mg/dL (74-106); POTASSIUM 3.5 mmol/L (3.5-5.1); SODIUM SERUM 144 mmol/L (136-145); UREA NITROGEN, BLOOD 12 mg/dL (7-18)
[2017-05-01 14:19] LABS: INR 1.08 (0.87-1.13); PROTHROMBIN TIME 11.2 SECS (9.5-12.7)
[2017-05-01 14:25] LABS: TROPONIN I < 0.017 ng/mL (0.00-0.056)
[2017-05-01 14:57] LABS: APPEARANCE,URINE Slightly Cloudy (CLEAR); BILIRUBIN,URINE SMALL (NEGATIVE); BLOOD, URINE Moderate Ery/uL (NEGATIVE); COLOR,URINE Dark (YELLOW); KETONES,URINE Negative (NEGATIVE); LEUKOCYTE ESTERASE ,URINE Small (NEGATIVE); NITRITE, URINE Negative (NEGATIVE); PH,URINE 6.5 (5.0-8.0); PROTEIN,URINE >=300 mg/dl (NEGATIVE); UGLUCOSE Negative (NEGATIVE); UROBILINOGEN,URINE 0.2 EU/dL (0.2)
[2017-05-01] MEDS ORDERED: VENL150T PO (15:04)
[2017-05-01] MEDS ORDERED: TOPI-67 PO (15:04)
[2017-05-01] MEDS ORDERED: BACL10TA PO (15:04)
[2017-05-01] MEDS ORDERED: ASPI81TA2 PO (15:05)
[2017-05-01] MEDS ORDERED: MULT-659 PO (15:05)
[2017-05-01 15:14] LABS: SQUAMOUS EPITHELIAL CELL,UR Rare /HPF (None Seen); WBC,URINE 81-100 /HPF (0-3)
[2017-05-01 15:15] LABS: BACTERIA,URINE 2+ /HPF (None Seen)
[2017-05-01] MEDS ORDERED: PIPERACILLIN /TAZOBACTAM 3.375 G in IV D5W 50 ML IV ONE (15:30)
--- NOTE | 2017-05-01 15:54 | NUR ---
REPORT GIVEN TO SHERRELL. PT AWAITING TRANSFER TO FLOOR.
[2017-05-01 16:28] LABS: BILIRUBIN,DIRECT 0.1 mg/dL (0.0-0.2); BILIRUBIN,TOTAL 0.4 mg/dL (0.2-1.0)
[2017-05-01] MEDS ORDERED: VANCOMYCIN 1 GM in IV D5W 250 ML IV ONE (17:30)
[2017-05-01] MEDS ORDERED: FEE PK DOSING 1 MIN EA MC ONE (17:47)
[2017-05-01] MEDS ORDERED: IV NS 0.9% 1,000 ML IV ONE (18:00)
[2017-05-01 18:18] LABS: ALBUMIN 4.1 g/dL (3.4-5.0); BILIRUBIN,DIRECT 0.1 mg/dL (0.0-0.2); BILIRUBIN,TOTAL 0.3 mg/dL (0.2-1.0)
[2017-05-01] MEDS: VANCOMYCIN 1 GM in IV D5W 500 ML IV SCH (18:53)
[2017-05-01] MEDS: MEROPENEM 1 G in IV NS 0.9% 100 ML IV SCH (18:53)
--- NOTE | 2017-05-01 19:40 | NUR ---
RN INITIAL NOTES RECEIVED PATIENT WITH NO DISTRESS. IVF AND ATB ORDERED, INFUSING WELL ON PATIENT'S L HAND G18. PATIENT ON ROOM AIR, NO SOB. PATIENT IS ST-SR WITH PAC AND PVCs, HR OF 90-110s. PATIENT IS ALERT AND ORIENTED, DENIES ANY PAIN. F/C IN PLACE WITH CLOUDY, YELLOW URINE. LLQ COLOSTMY WITH OSTOMY BAG INTACT, NOTED STOMA TO BE PROTRUDING OUT, PINK WITH STOOL DRAINING. PATIENT'S NEEDS ANTICIPATED AND MET. SAFETY AND COMFORT ENSURED. BED IN LOW AND LOCKED POSITION. CALL LIGHT IN REACH. WILL MONITOR.
[2017-05-01 20:00] VITALS: BP 131/84
--- NOTE | 2017-05-01 20:00 | NUR ---
RN NOTES DR. COELLO IN UNIT, SEEN AND EXAMINED PATIENT, WILL REFER TO DR. KEE FOR SURGICAL CONSULT FOR MNGT OF PROLAPSE COLOSTOMY.
--- NOTE | 2017-05-01 21:00 | NUR ---
RN NOTES REFERRED TO DR. KEE, RIDGE FOR SURGICAL CONSULT. NNO GIVEN. PATIENT ABLE TO DO SELF CARE WITH COLOSTOMY BAG CHANGES, ASSISTED NEEDED. CALL LIGHT IN REACH.
[2017-05-02] VITALS: BP 133/79
[2017-05-02 00:10] VITALS: BP 133/79
[2017-05-02] MEDS: MEROPENEM 1 G in IV NS 0.9% 100 ML IV SCH ×3 (01:01→17:16)
[2017-05-02] MEDS: ACETAMINOPHEN 325 MG TABLET PO PRN (01:06)
[2017-05-02] MEDS: VANCOMYCIN 1 GM in IV D5W 500 ML IV SCH ×2 (02:37→10:07)
[2017-05-02 04:00] VITALS: BP 113/71
--- NOTE | 2017-05-02 07:30 | NUR ---
AM RN NOTE Received patient awake, A/O X3 verbally responsive. No acute distress noted. Resp even and non-labored. On tele monitor. IV site intact and patent. F/C intact and draining with yellow cloudy urine. Bed in low locked position. Will continue to monitor.
[2017-05-02 07:44] LABS: BASOPHILS # (AUTO) 0.1 /CMM (0.0-0.2); BASOPHILS % (AUTO) 0.7 % (0.0-2.0); EOSINOPHILS # (AUTO) 0.4 /CMM (0.0-0.7); EOSINOPHILS % (AUTO) 4.1 % (0.0-6.0); HEMATOCRIT 39 % (39-51); HEMOGLOBIN 12.6 g/dL (13.5-17.5); LYMPHOCYTES # (AUTO) 2.1 /CMM (0.8-4.8); LYMPHOCYTES % (AUTO) 21.5 % (20.0-44.0); MEAN CORPUSCULAR HEMOGLOBIN 25 PG (26.0-33.0); MEAN CORPUSCULAR HGB CONC 33 g/dl (31.0-36.0); MEAN CORPUSCULAR VOLUME 76 fL (80-96); MONOCYTES % (AUTO) 10.1 % (2.0-12.0); NEUTROPHILS # (AUTO) 6.3 /CMM (1.8-8.9); NEUTROPHILS % (AUTO) 63.6 % (43.0-81.0); PLATELET COUNT (AUTO) 407 /CMM (150-450); RDW COEFFICIENT OF VARIATION 26.9 (11.5-15.0); RED BLOOD CELL COUNT(AUTO) 5.11 MIL/uL (4.5-6.0); WHITE BLOOD COUNT (AUTO) 9.9 K/uL (4.3-11.0)
[2017-05-02 07:52] LABS: ALANINE AMINOTRANSFERASE 53 U/L (12-78); ALBUMIN 3.3 g/dL (3.4-5.0); ALKALINE PHOSPHATASE 115 U/L (46-116); ASPARTATE AMINOTRANSFERASE 61 U/L (15-37); BILIRUBIN,TOTAL 0.5 mg/dL (0.2-1.0); CALCIUM, SERUM 8.1 mg/dL (8.5-10.1); CARBON DIOXIDE 28 mmol/L (21-32); CHLORIDE 109 mmol/L (98-107); CREATININE 0.6 mg/dL (0.6-1.3); GLUCOSE 88 mg/dL (74-106); POTASSIUM 3.9 mmol/L (3.5-5.1); SODIUM SERUM 145 mmol/L (136-145); TOTAL PROTEIN, SERUM 8.2 g/dL (6.4-8.2); UREA NITROGEN, BLOOD 8 mg/dL (7-18)
[2017-05-02 07:55] LABS: TROPONIN I < 0.017 ng/mL (0.00-0.056)
[2017-05-02 08:00] VITALS: BP 118/77
[2017-05-02] MEDS: LACTOBACILLUS RHAMNOSUS GG 1 EACH CAP.SPRINK PO SCH ×2 (08:04→17:14)
[2017-05-02] MEDS: BACLOFEN (10 MG) 10 MG TABLET PO SCH ×3 (08:04→17:14)
[2017-05-02] MEDS: ASPIRIN 81 MG TAB.CHEW PO SCH (08:04)
[2017-05-02] MEDS: MULTIVIT, IRON, MIN NO. 8, FA 1 TAB PO SCH (08:04)
[2017-05-02] MEDS: VENLAFAXINE XR 150 MG CAP.SR.24H PO SCH (08:05)
[2017-05-02] MEDS: TOPIRAMATE 25 MG TABLET PO SCH ×2 (08:05→17:13)
[2017-05-02] MEDS: SERTRALINE HCL 25 MG TABLET PO SCH (08:05)
[2017-05-02 08:30] LABS: INR 1.03 (0.87-1.13)
[2017-05-02 08:50] LABS: CREATINE KINASE MB 14.3 ng/mL (0-3.6)
--- NOTE | 2017-05-02 10:34 | NUR ---
AM RN NOTE Pt seen by Dr. Meeks (Bulk Mail Clerk) with new order to D/C telemetry and ok to transfer to Med/Surg.
--- NOTE | 2017-05-02 18:20 | NUR ---
AM RN NOTE Patient resting in his bed, no acute distress noted. All needs met and attended in timely manner. IV site intact and patent. Will endorse care to next shift.
[2017-05-02] MEDS: VANCOMYCIN 1 GM in IV D5W 250ml IV SCH (19:49)
[2017-05-02 20:00] VITALS: BP 129/76
--- NOTE | 2017-05-02 20:00 | NUR ---
MS RN NOTE PT IN BED AWAKE. A/O X 3, NO SOB, NO DISTRESS OR DISCOMFORT NOTED. DENIES PAIN. F/C INTACT AND PATENT DRAINING YELLOWISH COLOR URINE. COLOSTOMY BAG INTACT AND PT IS CHANGING BY HIMSELF. LT HAND H/L INTACT AND PATENT. ON S/S OF INFILTRATION NOTED. KEPT LOWER EXT'S ELEVATED. SIDE RAILS UP X 2 AND CALL LIGHT WITHIN REACH. VSS. CONTINUE TO MONITOR HIM.
[2017-05-02 20:08] VITALS: BP 129/76
[2017-05-03] MEDS: MEROPENEM 1 G in IV NS 0.9% 100 ML IV SCH ×3 (02:36→18:45)
[2017-05-03 04:00] VITALS: BP 131/81
[2017-05-03] MEDS: VANCOMYCIN 1 GM in IV D5W 250ml IV SCH ×3 (04:54→20:04)
--- NOTE | 2017-05-03 06:33 | NUR ---
MS RN NOTE PT IN BED AWAKE. NO DISTRESS OR DISCOMFORT NOTED. DENIES PAIN. H/L IN SOURAV INTACT AND PATENT. F/C INTACT AND PATENT DRAINING YELLOWISH COLOR URINE. SIDE RAILS UP X 2 AND CALL LIGHT WITHIN REACH. WILL ENDORSE TO DAY SHIFT NURSE FOR CONTINUE TO CARE.
[2017-05-03 06:58] LABS: BASOPHILS # (AUTO) 0.1 /CMM (0.0-0.2); BASOPHILS % (AUTO) 0.7 % (0.0-2.0); EOSINOPHILS # (AUTO) 0.4 /CMM (0.0-0.7); EOSINOPHILS % (AUTO) 3.8 % (0.0-6.0); HEMATOCRIT 40 % (39-51); HEMOGLOBIN 12.8 g/dL (13.5-17.5); LYMPHOCYTES % (AUTO) 18.7 % (20.0-44.0); MEAN CORPUSCULAR HEMOGLOBIN 25 PG (26.0-33.0); MEAN CORPUSCULAR HGB CONC 32 g/dl (31.0-36.0); MEAN CORPUSCULAR VOLUME 77 fL (80-96); MONOCYTES # (AUTO) 0.7 /CMM (0.1-1.30); MONOCYTES % (AUTO) 6.7 % (2.0-12.0); NEUTROPHILS # (AUTO) 7.5 /CMM (1.8-8.9); NEUTROPHILS % (AUTO) 70.1 % (43.0-81.0); PLATELET COUNT (AUTO) 392 /CMM (150-450); RDW COEFFICIENT OF VARIATION 26.5 (11.5-15.0); RED BLOOD CELL COUNT(AUTO) 5.17 MIL/uL (4.5-6.0); WHITE BLOOD COUNT (AUTO) 10.8 K/uL (4.3-11.0)
--- NOTE | 2017-05-03 07:00 | NUR ---
MS RN INITIAL NOTE RECIEVED THE PT IN BED AWAKE. A/O X 3, NO SOB, NO DISTRESS OR DISCOMFORT NOTED. DENIES PAIN. F/C INTACT AND PATENT DRAINING YELLOWISH COLOR URINE. COLOSTOMY BAG CLEAN DRY AND INTACT . LT HAND HEPARIN LOCKED ,INTACT AND PATENT. ON S/S OF INFILTRATION NOTED.PTS KEPT LOWER EXT'S ELEVATED. SIDE RAILS UP X 2 AND CALL LIGHT WITHIN REACH. RN WILL CONTINUE TO MONITOR THROUGHOUT THE SHIFT .
[2017-05-03 07:49] LABS: CALCIUM, SERUM 8.3 mg/dL (8.5-10.1); CREATININE 0.6 mg/dL (0.6-1.3); PHOSPHORUS 3.1 mg/dL (2.5-4.9); POTASSIUM 3.5 mmol/L (3.5-5.1)
[2017-05-03 08:00] VITALS: BP 106/56
[2017-05-03] MEDS: ASPIRIN 81 MG TAB.CHEW PO SCH (09:18)
[2017-05-03] MEDS: BACLOFEN (10 MG) 10 MG TABLET PO SCH ×4 (09:18→17:58)
[2017-05-03] MEDS: MULTIVIT, IRON, MIN NO. 8, FA 1 TAB PO SCH (09:18)
[2017-05-03] MEDS: SERTRALINE HCL 25 MG TABLET PO SCH (09:18)
[2017-05-03] MEDS: VENLAFAXINE XR 150 MG CAP.SR.24H PO SCH (09:19)
[2017-05-03] MEDS: LACTOBACILLUS RHAMNOSUS GG 1 EACH CAP.SPRINK PO SCH ×2 (09:19→17:58)
[2017-05-03] MEDS: TOPIRAMATE 25 MG TABLET PO SCH ×2 (09:19→17:58)
--- NOTE | 2017-05-03 09:34 | NUR ---
WOUND CARE CONSULT: PT REFUSED WOUND AND SKIN ASSESSMENT AT THIS TIME. WILL ATTEMPT TO SEE PT AT LATER TIME. RECOMMEND LOW AIRLOSS BED. RECOMMEND DPM AND SURGICAL CONSULTS. DISCUSSED WITH NURSING STAFF.
[2017-05-03 10:00] VITALS: BP 138/86
[2017-05-03 12:00] VITALS: BP 133/78
[2017-05-03] MEDS: MORPHINE SULFATE INJ 2 MG/ML DISP.SYRIN IV PRN ×3 (12:39→18:45)
[2017-05-03] MEDS: Z GUARD REMEDY 2 OZ OINT TP SCH (13:00)
[2017-05-03] MEDS ORDERED: HYDROGEL DRESSING 90 GM TUBE TP PRN (13:00)
[2017-05-03] MEDS: HYDROGEL DRESSING 90 GM TUBE TP SCH (13:00)
[2017-05-03] MEDS ORDERED: Z GUARD REMEDY 2 OZ OINT TP PRN (13:00)
--- NOTE | 2017-05-03 13:03 | NUR ---
WOUND CARE CONSULT: PT SEEN FOR WOUND AND SKIN ASSESSMENT BUT LIMITED ASSESSMENT DUE TO PT'S BEHAVIOR. PT ALLOWED SKIN AND WOUND ASSESSMENT WHILE HE WAS RECLINING ON HIS LEFT SIDE BUT REFUSED TO TURN OVER AFTER THAT AND REMOVED HIS DRESSINGS, BECOMING AGITATED. PT NOTED TO HAVE STAGE 4 ULCER TO RT LOWER BUTTOCK WITH PARTIAL THICKNESS WOUND TO LEFT LOWER BUTTOCK AND SCARRING TO SACRAL AREA. PT HAS MULTIPLE WOUNDS TO LOWER EXTREMITIES WITH ESCHARS, SCARRING AND OPEN ULCERS TO LEFT LATERAL ANKLE AND LEFT POSTERIOR LOWER LEG, ALL PRESENT ON ADMISSION. PT TO BE PLACED ON ADEEL ISOFLEX LOW AIRLOSS BED WHEN AVAILABLE. PT TO BE TURNED AND REPOSITIONED EVERY 2HRS PT CONDITION PERMITS, HEELS FLOATED. ALL SKIN PROTECTION AND WOUND RECOMMENDATIONS DISCUSSED WITH NURSING STAFF. WILL SEE PRN. DR AMELIE KEE FOLLOWING PT FOR COLOSTOMY WITH PARASTOMAL HERNIA AND FOR BUTTOCK WOUNDS. DPM FOLLOW UP RECOMMENDED FOR LOWER EXTREMITIES. MD IN AGREEMENT WITH PLAN OF CARE. Addendum: 05/03/17 at 1308 by ROBERTO CARLOS WEBSTER WNDNU Amended: Links added.
--- NOTE | 2017-05-03 15:00 | NUR ---
RN NOTE PATIENT IV INFILTRATED REDNESS NOTED , NO PAIN STATED PER PATIENT, EXTREMITY ELEVATED NO WARMTH NOTED FROM SITE , PATIENTS VITALS ASSESSED , MIDLINE ORDERED DUE TO PATIENT REFUSING PERIPHERAL REPLACEMENT
[2017-05-03 16:00] VITALS: BP 133/78
--- NOTE | 2017-05-03 16:13 | NUR ---
RN NOTE PATIENT REFUSED TO SWICH TO ISO FLEX BED AT THIS TIME. RN WILL CONTINUE TO MONITOR
--- NOTE | 2017-05-03 18:28 | NUR ---
RN CLOSING NOTE PT IN BED AWAKE. NO DISTRESS OR DISCOMFORT NOTED. DENIES PAIN. F/C INTACT AND PATENT DRAINING YELLOWISH COLOR URINE. SIDE RAILS UP X 2 AND CALL LIGHT WITHIN REACH. WILL ENDORSE TO PM SHIFT NURSE FOR CONTINUE TO CARE. DRESSING CHANGED AND ASSESSED X3. NO PAIN NOTED AT THIS TIME. PT HAS PENDING SACRAL DEBRIDEMENT FOR THE AM .
--- NOTE | 2017-05-03 19:41 | NUR ---
MS RN NOTE LATE ENTERY ON 05/03/171999 PT REFUSED TO SHOW BUTTOCK AREA FOR SKIN ASSESSMENT, STATES "I DON'T WANT TO DO THAT FOR NO ONE, BECOME UPSET". WILL TRY AGAIN.
--- NOTE | 2017-05-03 19:43 | NUR ---
MS RN NOTE LATE ENTERY 05/03/17 0200 TRIED AGAIN TO DO SKIN ASSESSEMENT, ONLY ABLE TO DO BILATERAL LOWER FOOT ASSESSEMENT. CONTINUE TO REFUSED TO SHOW BUTTOCK AREA.
[2017-05-03 20:00] VITALS: BP 114/50
--- NOTE | 2017-05-03 20:00 | NUR ---
MS RN NOTE PT IN BED SITTING UP, A/O X 3, NO SOB NO DISTRESS OR DISCOMFORT NOTED. DENIES PAIN. MID LINE IN AVI INTACT AND PATENT. COLOSTOMY BAG INTACT AND PATENT DRAINING LIQUIDY STOOL. PT DON'T WANT TO TURN AT THIS TIME. UNABLE TO SEE PROPERLY DECUBS ON BUTTOCK. BILATERAL FOOT WITH DRESSINGS ON HEEL PROTECTOR IN PLACE. PT ALSO GAVE THE CONSENT FOR AM PROCEDURE. VSS. SIDE RAILS UP X 2 AND CALL LIGHT WITHIN REACH. CONTINUE TO MONITOR HIM.
[2017-05-04] MEDS: MEROPENEM 1 G in IV NS 0.9% 100 ML IV SCH ×3 (02:09→17:00)
[2017-05-04] MEDS: VANCOMYCIN 1 GM in IV D5W 250ml IV SCH ×3 (03:54→20:35)
[2017-05-04 04:00] VITALS: BP 118/71
--- NOTE | 2017-05-04 06:43 | NUR ---
MS RN NOTE PT IN BED AWAKE. NO DISTRESS OR DISCOMFORT NOTED. DENIES PAIN. IVF NS TKO INFUSING WELL, NO S/S OF INFILTRATION NOTED. F/C INTACT AND PATENT, DRAINING YELLOWISH COLOR URINE. COLOSTOMY BAG INTACT AND PATENT DRAINING LIQUID STOOL BROWNISH COLOR. SIDE RAILS UP X 2 AND CALL LIGHT WITHIN REACH. WILL ENDORSE TO DAY SHIFT NURSE FOR CONTINUE TO CARE.
[2017-05-04 07:18] LABS: BASOPHILS # (AUTO) 0.1 /CMM (0.0-0.2); BASOPHILS % (AUTO) 0.8 % (0.0-2.0); EOSINOPHILS # (AUTO) 0.5 /CMM (0.0-0.7); HEMATOCRIT 37 % (39-51); HEMOGLOBIN 12.2 g/dL (13.5-17.5); LYMPHOCYTES # (AUTO) 2.5 /CMM (0.8-4.8); LYMPHOCYTES % (AUTO) 29.3 % (20.0-44.0); MEAN CORPUSCULAR HEMOGLOBIN 25 PG (26.0-33.0); MEAN CORPUSCULAR HGB CONC 33 g/dl (31.0-36.0); MEAN CORPUSCULAR VOLUME 76 fL (80-96); MONOCYTES # (AUTO) 0.8 /CMM (0.1-1.30); NEUTROPHILS # (AUTO) 4.7 /CMM (1.8-8.9); NEUTROPHILS % (AUTO) 54.9 % (43.0-81.0); PLATELET COUNT (AUTO) 373 /CMM (150-450); RDW COEFFICIENT OF VARIATION 26.2 (11.5-15.0); RED BLOOD CELL COUNT(AUTO) 4.89 MIL/uL (4.5-6.0); WHITE BLOOD COUNT (AUTO) 8.5 K/uL (4.3-11.0)
[2017-05-04 08:00] VITALS: BP 106/61
[2017-05-04] MEDS: VENLAFAXINE XR 150 MG CAP.SR.24H PO SCH (08:34)
[2017-05-04] MEDS: LACTOBACILLUS RHAMNOSUS GG 1 EACH CAP.SPRINK PO SCH ×2 (08:34→16:59)
[2017-05-04] MEDS: MULTIVIT, IRON, MIN NO. 8, FA 1 TAB PO SCH (08:34)
[2017-05-04] MEDS: BACLOFEN (10 MG) 10 MG TABLET PO SCH ×3 (08:35→16:59)
[2017-05-04] MEDS: PROSOURCE / PROSTAT (PYXIS) 30 ML UDC GT SCH (08:35)
[2017-05-04] MEDS: SERTRALINE HCL 25 MG TABLET PO SCH (08:35)
[2017-05-04] MEDS: ASPIRIN 81 MG TAB.CHEW PO SCH (08:35)
[2017-05-04] MEDS: TOPIRAMATE 25 MG TABLET PO SCH ×2 (08:35→16:59)
[2017-05-04] MEDS: ASCORBIC ACID 500 MG TABLET PO SCH (08:35)
[2017-05-04] MEDS: Z GUARD REMEDY 2 OZ OINT TP SCH (08:36)
[2017-05-04] MEDS: HYDROGEL DRESSING 90 GM TUBE TP SCH (08:36)
[2017-05-04 08:41] LABS: CREATININE 0.7 mg/dL (0.6-1.3); MAGNESIUM 2.1 mg/dL (1.8-2.4); PHOSPHORUS 4.1 mg/dL (2.5-4.9); POTASSIUM 3.7 mmol/L (3.5-5.1)
[2017-05-04] MEDS: ACETAMINOPHEN 325 MG TABLET PO PRN ×2 (09:50→22:10)
--- NOTE | 2017-05-04 13:00 | NUR ---
RN NOTE PATIENT MOVE TO ROOM 103 -1 DUE TO CRE IN URINE CONTACT ISOLATION OBSERVED
[2017-05-04 16:00] VITALS: BP 103/57
[2017-05-04] MEDS: MORPHINE SULFATE INJ 2 MG/ML DISP.SYRIN IV PRN ×2 (18:09→23:09)
--- NOTE | 2017-05-04 19:07 | NUR ---
RN CLOSING NOTE PT IN BED AWAKE. NO DISTRESS OR DISCOMFORT NOTED. DENIES PAIN. F/C INTACT AND PATENT DRAINING YELLOWISH COLOR URINE. SIDE RAILS UP X 2 AND CALL LIGHT WITHIN REACH. WILL ENDORSE TO PM SHIFT NURSE FOR CONTINUE TO CARE. DRESSING CHANGED AND ASSESSED X1. NO PAIN NOTED AT THIS TIME MORPHINE GIVEN AFTER DEBRIBMENT PREFORMED DUE TO PATIENT STATED PAIN .
--- NOTE | 2017-05-04 19:20 | NUR ---
RN OPEN NOTES RECEIVED PATIENT AWAKE SITTING IN BED. A/O X3. NO SIGNS OF DISTRESS OR DISCOMFORT. BREATHING EVEN AND UNLABORED. HAS F/C INTACT AND PATENT WITH CLEAR YELLOW FLUID DRAINING. AVI MIDLINE PATENT AND INTACT, NO SIGNS OF REDNESS OR INFILTRATION. COLOSTOMY BAG INTACT, WITH DRAINING LIQUIDY STOOL. BED IN LOW LOCKED POSITION WITH SIDE RAILS X2. CALL LIGHT WITHIN REACH. WILL CONTINUE TO MONITOR.
[2017-05-04 20:00] VITALS: BP 106/56
[2017-05-04 21:00] VITALS: BP 106/56
--- NOTE | 2017-05-04 23:09 | NUR ---
RN NOTES ADMINISTERED MORPHINE 2MG ORDERED FOR PAIN 7/10 IN B LEG. VSS. WILL CONTINUE TO MONITOR.
[2017-05-05] MEDS: MEROPENEM 1 G in IV NS 0.9% 100 ML IV SCH ×3 (01:18→17:19)
[2017-05-05 04:00] VITALS: BP 110/61
[2017-05-05] MEDS: VANCOMYCIN 1 GM in IV D5W 250ml IV SCH ×2 (04:03→11:30)
[2017-05-05] MEDS: MORPHINE SULFATE INJ 2 MG/ML DISP.SYRIN IV PRN ×3 (04:07→19:43)
--- NOTE | 2017-05-05 04:07 | NUR ---
RN NOTES ADMINISTERED MORPHINE 2MG ORDERED FOR PAIN 7/10 IN R BUTTOCKS. VSS. WILL CONTINUE TO MONITOR.
[2017-05-05 05:07] VITALS: BP 110/61
--- NOTE | 2017-05-05 06:44 | NUR ---
RN CLOSING NOTES PATIENT RESTING IN BED, EASILY AROUSABLE TO NAME. A/O X3. NO SIGNS OF DISTRESS OR DISCOMFORT. BREATHING EVEN AND UNLABORED. HAS F/C INTACT AND PATENT WITH CLEAR YELLOW FLUID DRAINING. AVI MIDLINE PATENT AND INTACT, NO SIGNS OF REDNESS OR INFILTRATION. COLOSTOMY BAG INTACT,DRAINING LIQUIDY STOOL. ALL NEEDS MET. NO SIGNIFICANT CHANGES THROUGH THEN NIGHT. BED IN LOW LOCKED POSITION WITH SIDE RAILS X2. CALL LIGHT WITHIN REACH. WILL ENDORSE TO AM SHIFT FOR GATITO.
[2017-05-05 06:53] LABS: BASOPHILS # (AUTO) 0.1 /CMM (0.0-0.2); BASOPHILS % (AUTO) 1.2 % (0.0-2.0); EOSINOPHILS # (AUTO) 0.6 /CMM (0.0-0.7); EOSINOPHILS % (AUTO) 7.4 % (0.0-6.0); HEMATOCRIT 39 % (39-51); HEMOGLOBIN 12.5 g/dL (13.5-17.5); LYMPHOCYTES # (AUTO) 2.4 /CMM (0.8-4.8); LYMPHOCYTES % (AUTO) 30.1 % (20.0-44.0); MEAN CORPUSCULAR HEMOGLOBIN 25 PG (26.0-33.0); MEAN CORPUSCULAR HGB CONC 32 g/dl (31.0-36.0); MEAN CORPUSCULAR VOLUME 77 fL (80-96); MONOCYTES # (AUTO) 0.6 /CMM (0.1-1.30); MONOCYTES % (AUTO) 7.5 % (2.0-12.0); NEUTROPHILS # (AUTO) 4.3 /CMM (1.8-8.9); NEUTROPHILS % (AUTO) 53.8 % (43.0-81.0); PLATELET COUNT (AUTO) 393 /CMM (150-450); RDW COEFFICIENT OF VARIATION 27.6 (11.5-15.0); RED BLOOD CELL COUNT(AUTO) 5.02 MIL/uL (4.5-6.0)
[2017-05-05 07:20] LABS: CALCIUM, SERUM 8.4 mg/dL (8.5-10.1); CREATININE 0.7 mg/dL (0.6-1.3); MAGNESIUM 1.8 mg/dL (1.8-2.4); POTASSIUM 3.8 mmol/L (3.5-5.1)
--- NOTE | 2017-05-05 07:28 | NUR ---
RN INITIAL NOTES PT IS IN BED, A/O X 3, ON ROOM AIR SATURATING WELL, NO RESPIRATORY DISTRESS NOTED. NO COMPLAINTS OF PAIN, COLOSTOMY IS INTACT, F/C IS DRAINING YELLOW URINE. ENCOURAGED OF SELF CARE, ON CARDIAC DIET, AVI MIDLINE IS FLUSHED AND PATENT ON TKO. WILL CONTINUE TO MONITOR LABS, CONTINUE TO ATB TX. CALL LIGHT WITHIN REACH.
[2017-05-05 08:00] VITALS: BP 101/62
[2017-05-05] MEDS: ASCORBIC ACID 500 MG TABLET PO SCH (09:15)
[2017-05-05] MEDS: BACLOFEN (10 MG) 10 MG TABLET PO SCH ×3 (09:15→16:36)
[2017-05-05] MEDS: PROSOURCE / PROSTAT (PYXIS) 30 ML UDC GT SCH (09:15)
[2017-05-05] MEDS: LACTOBACILLUS RHAMNOSUS GG 1 EACH CAP.SPRINK PO SCH ×2 (09:15→16:36)
[2017-05-05] MEDS: TOPIRAMATE 25 MG TABLET PO SCH ×2 (09:16→16:36)
[2017-05-05] MEDS: MULTIVIT, IRON, MIN NO. 8, FA 1 TAB PO SCH (09:16)
[2017-05-05] MEDS: VENLAFAXINE XR 150 MG CAP.SR.24H PO SCH (09:16)
[2017-05-05] MEDS: ASPIRIN 81 MG TAB.CHEW PO SCH (09:16)
[2017-05-05] MEDS: SERTRALINE HCL 25 MG TABLET PO SCH (09:16)
[2017-05-05] MEDS: HYDROGEL DRESSING 90 GM TUBE TP SCH (09:18)
[2017-05-05] MEDS: Z GUARD REMEDY 2 OZ OINT TP SCH (09:18)
[2017-05-05 16:00] VITALS: BP 104/59
--- NOTE | 2017-05-05 18:40 | NUR ---
RN CLOSING NOTES NO SIGNIFICANT CHANGES DURING AM SHIFT. AFEBRILE, ON ROOM AIR AND SATURATING WELL. STILL ON CRE URINE CONTACT ISOLATION. ASSISTED PT WITH ADL'S AND COLOSTOMY CARE. WU IS PATENT 2000ML URINE OUTPUT. WOUND CARE DONE, AVI MIDLINE IS PATENT, NO S/SX OF INFECTION OR INFILTRATION NOTED. ALL MEDS GIVEN ORDERED, PT TOLERATED IT WELL. ALL NEEDS MET, CALL LIGHT WITHIN REACH. WILL ENDORSE TO PM NURSE FOR CONTINUATION OF CARE.
[2017-05-05] MEDS: PIPERACILLIN /TAZOBACTAM 3.375 G in IV D5W 50 ML IV SCH (19:37)
--- NOTE | 2017-05-05 19:40 | NUR ---
RN NOTES PT AWAKE ALERT ORIENTED X 3 [address]ATCHING TV ON BED. ABLE TO MAKE KNOWN NEEDS. NO ACUTE RESP. DISTRESS. WARMTH TO TOUCH. AFEBRILE. IV SITE ON AVI MIDLINE WITH F/C DRAINED WITH YELLOW WESLY COLOR URINE COLOSTOMY BAG INTACT AND PATENT. PT C/O HEADACHE AND SACRAL PAIN AT SCALE OF 7/10. KEPT PT CLEAN AND COMFORTABLE IN BED. REPOSITIONED PATIENT COMFORTABLE. CONTINUE TO MONITOR.
[2017-05-05 20:00] VITALS: BP 104/51
[2017-05-06] MEDS: PIPERACILLIN /TAZOBACTAM 3.375 G in IV D5W 50 ML IV SCH ×4 (01:14→19:27)
[2017-05-06 04:00] VITALS: BP 115/70
[2017-05-06] MEDS: MORPHINE SULFATE INJ 2 MG/ML DISP.SYRIN IV PRN ×3 (05:33→21:27)
[2017-05-06 06:26] LABS: BASOPHILS # (AUTO) 0.1 /CMM (0.0-0.2); BASOPHILS % (AUTO) 1.3 % (0.0-2.0); EOSINOPHILS # (AUTO) 0.6 /CMM (0.0-0.7); HEMATOCRIT 41 % (39-51); HEMOGLOBIN 13.1 g/dL (13.5-17.5); LYMPHOCYTES # (AUTO) 2.8 /CMM (0.8-4.8); LYMPHOCYTES % (AUTO) 32.4 % (20.0-44.0); MEAN CORPUSCULAR HEMOGLOBIN 25 PG (26.0-33.0); MEAN CORPUSCULAR HGB CONC 32 g/dl (31.0-36.0); MEAN CORPUSCULAR VOLUME 77 fL (80-96); MONOCYTES # (AUTO) 0.7 /CMM (0.1-1.30); MONOCYTES % (AUTO) 8.7 % (2.0-12.0); NEUTROPHILS # (AUTO) 4.3 /CMM (1.8-8.9); NEUTROPHILS % (AUTO) 50.6 % (43.0-81.0); PLATELET COUNT (AUTO) 422 /CMM (150-450); RED BLOOD CELL COUNT(AUTO) 5.28 MIL/uL (4.5-6.0); WHITE BLOOD COUNT (AUTO) 8.5 K/uL (4.3-11.0)
[2017-05-06 06:37] LABS: CALCIUM, SERUM 9.1 mg/dL (8.5-10.1); CREATININE 0.8 mg/dL (0.6-1.3); POTASSIUM 3.9 mmol/L (3.5-5.1)
--- NOTE | 2017-05-06 07:12 | NUR ---
RN NOTES PT REMAINED INS TABLE CONDITION. AFEBRILE. NO SIGNIFICANT CHANGES SHOWS. REMAINED AOX3 ALL NEEDS ATTENDED. IV ATB TOLERATED WELL. COLOSTOMY AND F/C INTACT AND PATENT. IV SITE ON AVI MIDLINE WITH GOOD BLOOD RETURN. KEPT PT CLEAN AND DRY. ENDORSED CONTINUITY OF CARE TO AM NURSE.
[2017-05-06 08:00] VITALS: BP 98/61
[2017-05-06] MEDS: LACTOBACILLUS RHAMNOSUS GG 1 EACH CAP.SPRINK PO SCH ×2 (08:47→16:58)
[2017-05-06] MEDS: ASCORBIC ACID 500 MG TABLET PO SCH (08:47)
[2017-05-06] MEDS: MULTIVIT, IRON, MIN NO. 8, FA 1 TAB PO SCH (08:47)
[2017-05-06] MEDS: SERTRALINE HCL 25 MG TABLET PO SCH (08:48)
[2017-05-06] MEDS: TOPIRAMATE 25 MG TABLET PO SCH ×2 (08:48→16:59)
[2017-05-06] MEDS: BACLOFEN (10 MG) 10 MG TABLET PO SCH ×3 (08:48→16:58)
[2017-05-06] MEDS: VENLAFAXINE XR 150 MG CAP.SR.24H PO SCH (08:48)
[2017-05-06] MEDS: ASPIRIN 81 MG TAB.CHEW PO SCH (08:48)
[2017-05-06] MEDS: Z GUARD REMEDY 2 OZ OINT TP SCH (08:50)
[2017-05-06] MEDS: PROSOURCE / PROSTAT (PYXIS) 30 ML UDC GT SCH (08:51)
[2017-05-06] MEDS: HYDROGEL DRESSING 90 GM TUBE TP SCH (13:54)
[2017-05-06 16:00] VITALS: BP 101/52
--- NOTE | 2017-05-06 19:15 | NUR ---
RN NOTES PT AWAKE ALERT ORIENTED ABLE TO MAKE KNOWN NEEDS. NO ACUTE RESP DISTRESS AFEBRILE. DENIES PAIN AT THIS TIME WITH IV SITE ON AVI MIDLINE INTACT AND PATENT. ON STRICTLY OBSERVATION FOR ISOLATION DUE TO CRE URINE. COLOSTOMY AND F/C INTACT AND PATENT NO LEAKING NOTED. KEPT PT CLEAN AND DRY AND COMFORTABLE IN BED. CALL LIGHT KEPT WITHIN REACH AND REMINDED TO USED WHEN NEED FOR HELP.WILL CONTINUE TO MONITOR.
[2017-05-06 20:00] VITALS: BP 103/63
[2017-05-07] MEDS: PIPERACILLIN /TAZOBACTAM 3.375 G in IV D5W 50 ML IV SCH ×4 (00:17→18:08)
[2017-05-07 04:00] VITALS: BP 103/70
[2017-05-07] MEDS: MORPHINE SULFATE INJ 2 MG/ML DISP.SYRIN IV PRN ×2 (06:13→19:40)
--- NOTE | 2017-05-07 06:37 | NUR ---
RN NOTES PATIENT ASLEEP WELL WITHOUT ANY SIGNIFICANT CHANGE OF CONDITION THROUGHOUT THE SHIFT. TOLERATED IV ATB ORDERED, NO ASE SHOWS. AFEBRILE. VS WNL. ALL DUE MEDICINE TOLERATED WELL. IV SITE REMAINED INTACT AND PATENT. F/C DRAINED WELL COLOSTOMY BAG CHANGE. ALL NEEDS ATTENDED. KEPT CLEAN AND COMFORTABLE IN BED. WILL ENDORSE CONTINUITY OF CARE.
--- NOTE | 2017-05-07 07:15 | NUR ---
RN INITIAL NOTE PATIENT RESTING IN BED COMFORTABLY. EASILY AROUSED. ABLE TO MAKE NEEDS KNOWN. NO S/S OF PAIN OR DISCOMFORT. RESPIRATIONS ARE EVEN AND UNLABORED. NO S/S OF RESPIRATORY DISTRESS OR SOB. SATING WELL ON ROOM. IV SITE, FLUSHED AND PATENT. WU CATHETER DRAINING TO GRAVITY. SKIN IS WARM AND DRY TO TOUCH. SAFETY PRECAUTIONS IMPLEMENTED, BED IN LOCKED LOW POSITION WITH TWO SIDE RAILS UP. ISOLATION PRECAUTIONS OBSERVED. WILL MONITOR CLOSELY.
[2017-05-07 07:28] LABS: CALCIUM, SERUM 9.2 mg/dL (8.5-10.1); CREATININE 0.7 mg/dL (0.6-1.3); POTASSIUM 3.6 mmol/L (3.5-5.1)
[2017-05-07 08:00] VITALS: BP 98/53
[2017-05-07] MEDS: TOPIRAMATE 25 MG TABLET PO SCH ×2 (08:54→17:08)
[2017-05-07] MEDS: PROSOURCE / PROSTAT (PYXIS) 30 ML UDC GT SCH (08:54)
[2017-05-07] MEDS: LACTOBACILLUS RHAMNOSUS GG 1 EACH CAP.SPRINK PO SCH ×2 (08:55→17:08)
[2017-05-07] MEDS: VENLAFAXINE XR 150 MG CAP.SR.24H PO SCH (08:55)
[2017-05-07] MEDS: HYDROGEL DRESSING 90 GM TUBE TP SCH (08:55)
[2017-05-07] MEDS: Z GUARD REMEDY 2 OZ OINT TP SCH (08:55)
[2017-05-07] MEDS: SERTRALINE HCL 25 MG TABLET PO SCH (08:55)
[2017-05-07] MEDS: MULTIVIT, IRON, MIN NO. 8, FA 1 TAB PO SCH (08:55)
[2017-05-07] MEDS: ASCORBIC ACID 500 MG TABLET PO SCH (08:55)
[2017-05-07] MEDS: BACLOFEN (10 MG) 10 MG TABLET PO SCH ×3 (08:55→17:08)
[2017-05-07] MEDS: ASPIRIN 81 MG TAB.CHEW PO SCH (08:57)
[2017-05-07 16:00] VITALS: BP 129/75
[2017-05-07] MEDS: ACETAMINOPHEN 325 MG TABLET PO PRN (18:07)
--- NOTE | 2017-05-07 19:14 | NUR ---
RN CLOSING NOTE ALL MD ORDERS CARRIED OUT. PATIENT KEPT CLEAN AND DRY. SAFETY PRECAUTIONS IN PLACE AT ALL TIMES. WILL GIVE REPORT TO PM RN FOR GATITO.
--- NOTE | 2017-05-07 19:15 | NUR ---
RN NOTES PT AOX3 WATCHING TV ON BED ON STRICTLY ISOLATION FOR CRE URINE. BREATHING EVEN AND UNLABORED ON RA SATING 98%. AVI MIDLINE DRESSING CHANGE INTACT AND PATENT WITH GOOD BLOOD RETURN. COMPLAINING OF PAIN AT SCALE OF 8/10 SCALE. F/C INTACT WITH CLEAR COLOR URINE. COLOSTOMY BAG CHANGED WITH GOOD AMOUNT OF STOOL. KEPT PT CLEAN AND COMFORTABLE IN BED. CALL LIGHT KEPT WITHIN EASY REACH. WILL MONITOR FREQ.
[2017-05-07 20:00] VITALS: BP 100/55
[2017-05-08] MEDS: PIPERACILLIN /TAZOBACTAM 3.375 G in IV D5W 50 ML IV SCH ×4 (00:13→18:18)
[2017-05-08] MEDS: MORPHINE SULFATE INJ 2 MG/ML DISP.SYRIN IV PRN ×4 (01:49→23:44)
[2017-05-08 04:00] VITALS: BP 106/69
[2017-05-08] MEDS: ACETAMINOPHEN 325 MG TABLET PO PRN (04:11)
[2017-05-08] MEDS ORDERED: MAG HYDROX/AL HYDROX/SIMETH 30 ML UDC ONE (04:51)
[2017-05-08] MEDS ORDERED: MAG HYDROX/AL HYDROX/SIMETH 30 ML UDC PO PRN (05:00)
--- NOTE | 2017-05-08 05:00 | NUR ---
RN NOTES PT C/O INDIGESTION/STOMACH CALLED AND INFORMED DR. BARDALES WITH ORDER TO GIVE MAALOX. NOTED AND CARRIED OUT ORDER.
--- NOTE | 2017-05-08 06:36 | NUR ---
RN NOTES PT REMAINED IN STABLE CONDITION NO SIGNIFICANT CHANGES SHOWS. AFEBRILE. VS WNL. BREATHING EVEN AND UNLABORED. PAIN MEDICINE EASE WITH PRN PAIN MEDS. ALL NEEDS ATTENDED. KEPT PT CLEAN AND COMFORTABLE IN BED. WILL ENDORSED CONTINUITY OF CARE TO AM NURSE.
--- NOTE | 2017-05-08 07:10 | NUR ---
RN INITIAL NOTES: REC'D PT AWAKE ON BED, NOT IN ANY FORM OF DISTRESS, A/O X3, DENIES ANY PAIN/ DISCOMFORT,ABLE TO MAKE NEEDS KNOWN. HAS COLOSTOMY W/ BAG INTACT, NO S/SX OF INFECTION NOTED. HAS FC PATENT & INTACT. HAS AVI MIDLINE, SL, FLUSHED, PATENT & INTACT W/ NO S/SX OF INFECTION/ INFILTRATION. PROVIDED COMFORT & SAFETY MEASURES. BED KEPT LOW & IN LOCKED POS. ISOLATION PREC OBSERVED. WILL CONTINUE TO MONITOR.
[2017-05-08 08:00] VITALS: BP 101/67
[2017-05-08] MEDS: LACTOBACILLUS RHAMNOSUS GG 1 EACH CAP.SPRINK PO SCH ×2 (08:32→16:23)
[2017-05-08] MEDS: SERTRALINE HCL 25 MG TABLET PO SCH (08:32)
[2017-05-08] MEDS: ASCORBIC ACID 500 MG TABLET PO SCH (08:32)
[2017-05-08] MEDS: ASPIRIN 81 MG TAB.CHEW PO SCH (08:32)
[2017-05-08] MEDS: BACLOFEN (10 MG) 10 MG TABLET PO SCH ×3 (08:32→16:23)
[2017-05-08] MEDS: TOPIRAMATE 25 MG TABLET PO SCH ×2 (08:32→16:23)
[2017-05-08] MEDS: PROSOURCE / PROSTAT (PYXIS) 30 ML UDC GT SCH (08:32)
[2017-05-08] MEDS: MULTIVIT, IRON, MIN NO. 8, FA 1 TAB PO SCH (08:32)
[2017-05-08] MEDS: VENLAFAXINE XR 150 MG CAP.SR.24H PO SCH (08:32)
[2017-05-08] MEDS: HYDROGEL DRESSING 90 GM TUBE TP SCH (08:33)
[2017-05-08] MEDS: Z GUARD REMEDY 2 OZ OINT TP SCH (08:33)
--- NOTE | 2017-05-08 09:30 | NUR ---
RN NOTES: PT SEEN & EXAMINED BY DR. WOLFF. UPDATED ABOUT DCP, PER CASANDRA STEEL PT FOR DC SHAE AFTER LUNCH TO HOME W/ MOTHER.
--- NOTE | 2017-05-08 09:52 | NUR ---
RN NOTES: PINK ALERT ([facility]) CLEARED ON EMAR FOR PT'S SAFETY. MEDICATION NON ADMINISTERED.
--- NOTE | 2017-05-08 10:00 | NUR ---
RN NOTES: PT SEEN & EXAMINED BY CADEN FOR DR. Justin KEE.
[2017-05-08 16:00] VITALS: BP 105/49
--- NOTE | 2017-05-08 18:37 | NUR ---
RN CLOSING NOTES: NO ACUTE CHANGES NOTED W/IN SHIFT. COLOSTOMY W/ BAG KEPT INTACT, NO S/SX OF INFECTION NOTED. FC KEPT PATENT & INTACT. AVI MIDLINE, SL, KEPT PATENT & INTACT W/ NO S/SX OF INFECTION/ INFILTRATION. KEPT WELL RESTED. NEEDS ATTENDED. CALL LIGHT PLACED W/IN REACH. BED KEPT LOW & IN LOCKED POS. ISOLATION PREC OBSERVED. WILL ENDORSE TO PM RN FOR GATITO.
[2017-05-08 20:00] VITALS: BP 104/66
[2017-05-08] MEDS ORDERED: IV NS 0.9% 250 ML IV PRN (23:30)
[2017-05-09] MEDS: PIPERACILLIN /TAZOBACTAM 3.375 G in IV D5W 50 ML IV SCH ×4 (00:45→17:43)
[2017-05-09 04:00] VITALS: BP_SYST 104; BP_SYST 106; BP_DIAS 66; BP_DIAS 68
[2017-05-09] MEDS: MORPHINE SULFATE INJ 2 MG/ML DISP.SYRIN IV PRN ×3 (04:09→20:02)
--- NOTE | 2017-05-09 06:25 | NUR ---
MS RN: REMAINED A/O X3. ON R/A WT NO ACUTE DISTRESS. PAIN MEDS GIVEN FOR GEN. PAIN (8/10) ORDERED WT GOOD EFFECT AFTER AN HOUR (0/10). TOLERATING ATB IV THERAPY WT NO ASE. COLOSTOMY BACK AND F/C PATENT AND INTACT. SAFETY PRECAUTION NOTED AT ALL TIMES.
[2017-05-09] MEDS: ACETAMINOPHEN 325 MG TABLET PO PRN (06:44)
[2017-05-09 08:00] VITALS: BP 104/69
--- NOTE | 2017-05-09 08:00 | NUR ---
MS1/RN AM SHIFT INITIAL NOTE RECEIVED PT SITTING AWAKE IN BED. PT A/O X 3, DENIES ANY SYMPTOMS OR PAIN. NO ACUTE CHANGE OF CONDITION NOTED. PT ON ROOM AIR SATURATING WELL. IV SITE FLUSHED, PATENT WITH NO S/S OF INFECTION, SL. WU CATHETER INTACT WITH YELLOW URINE OUTPUT. COLOSTOMY BAG IN PLACE NOTED WITH LIQUID TO SOFT BROWN FECAL MATERIAL OUTPUT. PT IS COMFORTABLE AT THIS TIME. SCHEDULED AM MEDS TO BE GIVEN. CL WITHIN REACHED AND SAFETY MAINTAINED. ON GOING MONITORING.
[2017-05-09] MEDS: PROSOURCE / PROSTAT (PYXIS) 30 ML UDC GT SCH ×2 (09:00→09:19)
[2017-05-09] MEDS: VENLAFAXINE XR 150 MG CAP.SR.24H PO SCH (09:20)
[2017-05-09] MEDS: LACTOBACILLUS RHAMNOSUS GG 1 EACH CAP.SPRINK PO SCH ×2 (09:20→17:22)
[2017-05-09] MEDS: TOPIRAMATE 25 MG TABLET PO SCH ×2 (09:20→17:22)
[2017-05-09] MEDS: ASCORBIC ACID 500 MG TABLET PO SCH (09:20)
[2017-05-09] MEDS: MULTIVIT, IRON, MIN NO. 8, FA 1 TAB PO SCH (09:20)
[2017-05-09] MEDS: SERTRALINE HCL 25 MG TABLET PO SCH (09:20)
[2017-05-09] MEDS: ASPIRIN 81 MG TAB.CHEW PO SCH (09:20)
[2017-05-09] MEDS: BACLOFEN (10 MG) 10 MG TABLET PO SCH ×3 (09:20→17:22)
[2017-05-09] MEDS: HYDROGEL DRESSING 90 GM TUBE TP SCH (09:21)
[2017-05-09] MEDS: Z GUARD REMEDY 2 OZ OINT TP SCH (09:21)
[2017-05-09 09:51] VITALS: BP 104/69
--- NOTE | 2017-05-09 12:00 | NUR ---
MS1/RN NOON ROUNDS NO CHANGE OF CONDITION. MONITORING CONTINUED.
[2017-05-09] MEDS ORDERED: AMOX875T2 PO (12:44)
[2017-05-09] MEDS ORDERED: GENT30OI2 TP (12:44)
[2017-05-09 16:00] VITALS: BP 138/76
[2017-05-09 16:38] VITALS: BP 135/76
--- NOTE | 2017-05-09 17:30 | NUR ---
MS1/RN AFTERNOON ROUNDS NO CHANGE OF CONDITION. MONITORING CONTINUED.
--- NOTE | 2017-05-09 19:33 | NUR ---
MS1/RN AM SHIFT END NOTES NO ACUTE CHANGE OF CONDITION NOTED DURING THE SHIFT. ALL NEEDS MET. PT ENDORSED TO PM NURSE TO CONTINUE CARE. CL WITHIN REACHED AND SAFETY MAINTAINED. AWAITING FOR BOARD AND CARE GRINDER SET UP OPERATOR THREAD TOOL FOR DISCHARGE PICK-UP.
[2017-05-09 20:00] VITALS: BP 117/62
--- NOTE | 2017-05-09 20:00 | NUR ---
MS RN NOTE PT IN BED AWAKE. A/O X 3, NO SOB NOTED. CO PAIN BILATERAL LOWER EXT'S 04/22 MORPHINE SULFATE 2 MG IVP GIVEN. VSS. AVI MID LINE INTACT AND PATENT. F/C INTACT AND PATENT DRAINING WELL YELLOWISH COLOR URINE. COLOSTOMY BAG INTACT AND PATENT DRAINING LIQUIDY STOOL. ALL NEEDS ATTENDED. SIDE RAILS UP X 2 AND CALL LIGHT WITHIN REACH. CONTINUE TO MONITOR HIM.
--- NOTE | 2017-05-09 21:17 | NUR ---
RN NOTES 2104PM - RECEIVED A CALL FROM [employer] ANALYST INFORMED THAT MOTHER OF THE PATIENT AGREED TO DISCHARGED AT HOME. SPOKE AND INFORMED THE PATIENT. 2109PM - CALLED [facility] FOR TRANSPORT SPOKE WITH MICHEAL THEY WILL COME IN 1 1/2 HOUR. CHARGE NURSE MADE AWARE.
--- NOTE | 2017-05-09 22:15 | NUR ---
MS RN NOTE [facility] PERSONAL CAME TO GARAGE ATTENDANT THE PT TO TRANSFER HIM TO HOME. MID LINE DC'D AND SECURED THE SITE WITH 2X2 GAUZE NO BLEEDING. NOTED. PT SIGN THE EXIT CARE. DISCHARGE INSTRUCTIONS GIVEN. CHARGE NURSE FAX THE MEDICATION LIST TO PHARMACY. PT LEFT THE ROOM ON GURNEY IN NO DISTRESS OR DISCOMFORT.
--- NOTE | 2017-05-09 22:15 | NUR ---
RN NOTES CALLED [facility] AND FAX THE PRESCRIPTION ORDER #
== END 2017-05-09 23:50 | disposition home or self-care (01) | DRG 720 ==
LOC: ER 13:23 → TELE1 16:01 → MEDSG1 05-02 10:35
PROVIDERS: ADMIT Internal Medicine; ATTEND Internal Medicine
PROC: 05H533Z Insertion of Infusion Device into Right Subclavian Vein, Percutaneous Approach (ICD-10-PCS; principal; 2017-05-03)
DX: A41.9 Sepsis, unspecified organism (principal); G93.41 Metabolic encephalopathy; E87.2 Acidosis; L89.154 Pressure ulcer of sacral region, stage 4; D68.59 Other primary thrombophilia; G82.20 Paraplegia, unspecified; E83.51 Hypocalcemia; L89.523 Pressure ulcer of left ankle, stage 3; L89.893 Pressure ulcer of other site, stage 3; N39.0 Urinary tract infection, site not specified; F15.10 Other stimulant abuse, uncomplicated; D50.9 Iron deficiency anemia, unspecified; N31.9 Neuromuscular dysfunction of bladder, unspecified; Z93.3 Colostomy status; Z87.11 Personal history of peptic ulcer disease; Z74.01 Bed confinement status; Z68.30 Body mass index [BMI] 30.0-30.9, adult; R65.20 Severe sepsis without septic shock; K43.5 Parastomal hernia without obstruction or gangrene; G89.29 Other chronic pain; F17.210 Nicotine dependence, cigarettes, uncomplicated; F25.9 Schizoaffective disorder, unspecified; F10.20 Alcohol dependence, uncomplicated; E66.9 Obesity, unspecified; E78.5 Hyperlipidemia, unspecified; Z87.440 Personal history of urinary (tract) infections; W34.00XS Accidental discharge from unspecified firearms or gun, sequela; B96.1 Klebsiella pneumoniae [K. pneumoniae] as the cause of diseases classified elsewhere; B96.89 Other specified bacterial agents as the cause of diseases classified elsewhere; Z16.342 Resistance to multiple antimycobacterial drugs
CPT/HCPCS: 36415; 36569; 71010-TC; 80048-TC; 80053-TC; 80076-TC; 80202-TC; 80305; 81000-TC; 82247-TC; 82248-TC; 82553-TC; 83605-TC; 83735-TC; 84100-TC; 84484-TC; 85025-TC; 85385-TC; 85610-TC; 85730-TC; 87040-TC; 87070-TC; 87081-TC; 87086-TC; 87186-TC; 93307-TC; A4217; A4606; A6248; A6253; A6402; A6403; J2185; J2270; J2543; J3370; J7030; J7050; J7060; Z7610

== ENCOUNTER 2017-05-16 12:51 | Inpatient (IN) | payer MEDICAID ==
[~2017-05-16] VITALS: Ht 182.9 cm; Wt 118.4 kg
[~2017-05-16 12:51] MED LIST changes: +AMOX875T2 PO; +ASPI81TA2 PO; +GENT30OI2 TP; -MERO1VIA IV; +MULT-659 PO; -QUET25TA PO; +TOPI-67 PO; -VANC1.5P10 IV; +VENL150T PO
--- NOTE | 2017-05-16 12:55 | NUR ---
PT BIBRA TO ER BED 15. AGITATED AND AGRESSIVE FROM HOME. FAMILY CALLED 911. PT BEEN IN ED MULTIPLE TIMES FOR SAME REASON. ON 2 PT RESTRAINT DEMONSTRATOR SEWING TECHNIQUES. PLACED ON MONITOR. TACHY OTHERWISE STABLE VITALS.
--- NOTE | 2017-05-16 12:58 | NUR ---
DR COOLEY AT BEDSIDE FOR EVAL.
[2017-05-16] MEDS ORDERED: IV NS 0.9% 1,000 ML BAG IV ONE ×2 (13:00→16:00)
[2017-05-16] MEDS ORDERED: ZIPRASIDONE MESYLATE 20 MG/VIAL VIAL IM ONE (13:00)
[2017-05-16] MEDS ORDERED: LORAZEPAM INJ 2 MG/ML VIAL IVP ONE (13:00)
--- NOTE | 2017-05-16 13:10 | NUR ---
PT IS CALM, COOPERATIVE TO STAFF. RESTRAINTS D/C'D PER ERMD VERBAL ORDER.
[2017-05-16] MEDS ORDERED: LORAZEPAM INJ 2 MG/ML VIAL ONE (13:27)
[2017-05-16 13:28] LABS: BASOPHILS # (AUTO) 0.5 /CMM (0.0-0.2); BASOPHILS % (AUTO) 3.4 % (0.0-2.0); EOSINOPHILS % (AUTO) 0.1 % (0.0-6.0); HEMATOCRIT 44 % (39-51); HEMOGLOBIN 14.1 g/dL (13.5-17.5); LYMPHOCYTES % (AUTO) 12.7 % (20.0-44.0); MEAN CORPUSCULAR HEMOGLOBIN 25 PG (26.0-33.0); MEAN CORPUSCULAR HGB CONC 32 g/dl (31.0-36.0); MEAN CORPUSCULAR VOLUME 78 fL (80-96); MONOCYTES # (AUTO) 0.9 /CMM (0.1-1.30); MONOCYTES % (AUTO) 6.1 % (2.0-12.0); NEUTROPHILS # (AUTO) 12.1 /CMM (1.8-8.9); NEUTROPHILS % (AUTO) 77.7 % (43.0-81.0); PLATELET COUNT (AUTO) 471 /CMM (150-450); RED BLOOD CELL COUNT(AUTO) 5.65 MIL/uL (4.5-6.0); WHITE BLOOD COUNT (AUTO) 15.6 K/uL (4.3-11.0)
[2017-05-16 13:50] LABS: ALANINE AMINOTRANSFERASE 55 U/L (12-78); ALBUMIN 3.6 g/dL (3.4-5.0); ALCOHOL, BLOOD 15 mg/dL (0-0); ALKALINE PHOSPHATASE 137 U/L (46-116); ASPARTATE AMINOTRANSFERASE 23 U/L (15-37); BILIRUBIN,DIRECT 0.1 mg/dL (0.0-0.2); BILIRUBIN,TOTAL 0.3 mg/dL (0.2-1.0); CALCIUM, SERUM 8.1 mg/dL (8.5-10.1); CARBON DIOXIDE 17 mmol/L (21-32); CHLORIDE 107 mmol/L (98-107); CREATININE 0.9 mg/dL (0.6-1.3); GLUCOSE 120 mg/dL (74-106); POTASSIUM 3.7 mmol/L (3.5-5.1); SODIUM SERUM 142 mmol/L (136-145); TOTAL PROTEIN, SERUM 8.5 g/dL (6.4-8.2); UREA NITROGEN, BLOOD 12 mg/dL (7-18)
[2017-05-16 13:51] LABS: ACETAMINOPHEN < 2 ug/ml (10-30); SALICYLATE 1.6 mg/dL (2.8-20.0)
--- NOTE | 2017-05-16 14:31 | NUR ---
CALLED [facility] CLINIC[facility] ETA 1 HOUR
[2017-05-16 14:40] LABS: APPEARANCE,URINE CLEAR (CLEAR); BILIRUBIN,URINE NEGATIVE (NEGATIVE); BLOOD, URINE 1+ Ery/uL (NEGATIVE); COLOR,URINE YELLOW (YELLOW); KETONES,URINE NEGATIVE (NEGATIVE); LEUKOCYTE ESTERASE ,URINE 1+ (NEGATIVE); NITRITE, URINE NEGATIVE (NEGATIVE); PH,URINE 6.5 (5.0-8.0); PROTEIN,URINE 1+ mg/dl (NEGATIVE); UGLUCOSE NEGATIVE (NEGATIVE); UROBILINOGEN,URINE 0.2 EU/dL (0.2)
[2017-05-16 15:12] LABS: BACTERIA,URINE 4+ /HPF (None Seen); SQUAMOUS EPITHELIAL CELL,UR 0-2 /HPF (None Seen)
--- NOTE | 2017-05-16 15:35 | NUR ---
CITLALY RN AT BEDSIDE FOR PSYCH EVAL.
--- NOTE | 2017-05-16 16:08 | NUR ---
CALLED NURSING MAGNETOMETER OPERATOR FOR M/S BED
[2017-05-16] MEDS ORDERED: D5W IV ONE (16:30)
[2017-05-16] MEDS ORDERED: GENTAMICIN IV ONE (16:30)
--- NOTE | 2017-05-16 18:25 | NUR ---
REPORT TO TA[facility]. PT AWAITING TRANSFER TO FLOOR.
[2017-05-16] MEDS ORDERED: Z GUARD REMEDY 2 OZ OINT TP PRN (18:30)
[2017-05-16] MEDS ORDERED: PIPERACILLIN /TAZOBACTAM 4.5 G in IV D5W 50 ML IV SCH (18:30)
[2017-05-16] MEDS ORDERED: MAG HYDROX/AL HYDROX/SIMETH 30 ML UDC PO PRN (18:30)
[2017-05-16] MEDS ORDERED: ONDANSETRON HCL/PF 4 MG/2 ML VIAL IVP PRN (18:30)
[2017-05-16] MEDS ORDERED: MAGNESIUM HYDROXIDE 30 ML UDC PO PRN (18:30)
--- NOTE | 2017-05-16 19:00 | NUR ---
PT BROUGHT ONTO FLOOR, ALERT AND ORIENTED. IV ON R WRIST INTACT AND PATENT, WU INTACT AND DRAINING. N SIGNS OR SYMPTOMS OF DISTRESS OR PAIN NOTED. SAFETY MEASURES ARE IN PLACE, CALL LIGHT IS IN REACH. WILL ENDORSE TO IMPROVEMENT SPEC NURSE FOR CONTINUITY OF CARE.
--- NOTE | 2017-05-16 19:11 | NUR ---
ADMITTING VITAL SIGNS TAKEN: BP 116/81 PULSE 11, O2 92, TEMP 98.6, RESP 18.
[2017-05-16 19:30] VITALS: BP 133/80
--- NOTE | 2017-05-16 19:30 | NUR ---
MS RN NOTES: RECEIVED PT FROM AM NURSE. PT IS UP IN BED AWAKE AND RESTING. PT IS PARAPLEGIC. PT IS A/OX 3. NO S/S OF DISTRESS NOTED AT THIS TIME. PT HAS WU CATH AND IS ATTACHED TO DRAINAGE BAG. PT ALSO HAS COLOSTOMY BAG. PT HAS R WRIST #18G AND IS PATENT AND INTACT. WILL ACKNOWLEDGE ALL MEDS FOR 183 AND WILL LATE ADMIN SINCE THEY WERE FOR 1829 AND PT DID NOT GET ON FLOOR UNTIL 1929. PT IS ON 5150 HOLD. CALL LIGHT WITHIN PT'S REACH. BED KEPT IN LOW, LOCKED POSITION, AND SIDE RAILS X2 UP. SITTER AT BEDSIDE. WILL CONTINUE TO MONITOR PT.
[2017-05-16 20:00] VITALS: BP 133/80
[2017-05-16] MEDS: IV D5/0.45 NACL 1,000 ML IV PRN (20:52)
[2017-05-16] MEDS: PIPERACILLIN /TAZOBACTAM 3.375 G in IV D5W 50 ML IV SCH (21:01)
[2017-05-16] MEDS: BACLOFEN (10 MG) 10 MG TABLET PO SCH (21:06)
[2017-05-16] MEDS: LACTOBACILLUS RHAMNOSUS GG 1 EACH CAP.SPRINK PO SCH (21:06)
[2017-05-16] MEDS: SERTRALINE HCL 25 MG TABLET PO SCH (21:07)
[2017-05-16] MEDS: TOPIRAMATE 25 MG TABLET PO SCH (21:07)
[2017-05-16] MEDS: PANTOPRAZOLE 40 MG TABLET.DR PO SCH (21:07)
[2017-05-16] MEDS: ASPIRIN 81 MG TAB.CHEW PO SCH (21:08)
[2017-05-16] MEDS: GENTAMICIN 0.1% OINT 15 GM TUBE TP SCH (21:09)
[2017-05-17] MEDS: PIPERACILLIN /TAZOBACTAM 3.375 G in IV D5W 50 ML IV SCH ×4 (00:09→17:23)
[2017-05-17] MEDS: HYDROCODONE/APAP 5/325MG 1 EACH TABLET PO PRN ×2 (04:14→20:06)
--- NOTE | 2017-05-17 04:16 | NUR ---
MS RN NOTES: PT COMPLAINED OF 7/10 B ARM PAIN. PT'S V/S WAS 124/68 HR 90, RR20. PT WAS ADMINISTERED NORCO 5. WILL CONTINUE TO MONITOR PT.
--- NOTE | 2017-05-17 06:35 | NUR ---
MS RN CLOSING NOTES: ALL NEEDS WERE ATTENDED AND ANTICIPATED FOR. SITTER AT BEDSIDE. PT IS UP IN BED AND IS USING HIS PHONE. PT IS PARAPLEGIC. PT HAS BEEN A/OX3. NO S/S OF DISTRESS NOTED AT THIS TIME. PT HAS WU CATH AND IS ATTACHED TO DRAINAGE BAG. OUTPUT WAS 850ML. PT ALSO HAS COLOSTOMY BAG BUT NO STOOL NOTED. PT HAS R WRIST #18G AND IS PATENT AND INTACT. PT IS BEING INFUSED WITH IV D5 1/2NS AT 75ML/HR. PT IS ON 5150 HOLD. CALL LIGHT WITHIN PT'S REACH. BED KEPT IN LOW, LOCKED POSITION, AND SIDE RAILS X2 UP. WILL ENDORSE TO AM NURSE FOR GATITO.
[2017-05-17 06:37] LABS: BASOPHILS % (AUTO) 0.4 % (0.0-2.0); EOSINOPHILS # (AUTO) 0.2 /CMM (0.0-0.7); EOSINOPHILS % (AUTO) 2.1 % (0.0-6.0); HEMATOCRIT 37 % (39-51); LYMPHOCYTES # (AUTO) 2.6 /CMM (0.8-4.8); LYMPHOCYTES % (AUTO) 22.6 % (20.0-44.0); MEAN CORPUSCULAR HEMOGLOBIN 26 PG (26.0-33.0); MEAN CORPUSCULAR HGB CONC 33 g/dl (31.0-36.0); MEAN CORPUSCULAR VOLUME 79 fL (80-96); MONOCYTES # (AUTO) 0.8 /CMM (0.1-1.30); MONOCYTES % (AUTO) 7.4 % (2.0-12.0); NEUTROPHILS # (AUTO) 7.7 /CMM (1.8-8.9); NEUTROPHILS % (AUTO) 67.5 % (43.0-81.0); PLATELET COUNT (AUTO) 358 /CMM (150-450); RDW COEFFICIENT OF VARIATION 27.3 (11.5-15.0); RED BLOOD CELL COUNT(AUTO) 4.68 MIL/uL (4.5-6.0); WHITE BLOOD COUNT (AUTO) 11.4 K/uL (4.3-11.0)
--- NOTE | 2017-05-17 06:49 | NUR ---
MS RN NOTES: DR. WATTERS (AWNING HANGER SUPERVISOR) AT BEDSIDE AND ASSESSED PT'S FEET. HE SAID HE WILL PUT IN ORDERS.
[2017-05-17 06:57] LABS: CALCIUM, SERUM 7.8 mg/dL (8.5-10.1); CREATININE 0.6 mg/dL (0.6-1.3); PHOSPHORUS 2.8 mg/dL (2.5-4.9); POTASSIUM 3.8 mmol/L (3.5-5.1)
--- NOTE | 2017-05-17 07:39 | NUR ---
RN OPEN NOTES RECEIVED REPORT FROM WIND TURBINE TECHNICIAN RN. WILL CONTINUE TO MONITOR AND ASSESS PATIENT THROUGH OUT MY SHIFT
[2017-05-17 08:07] VITALS: BP 127/70
[2017-05-17] MEDS: ASPIRIN 81 MG TAB.CHEW PO SCH (08:15)
[2017-05-17] MEDS: SERTRALINE HCL 25 MG TABLET PO SCH (08:16)
[2017-05-17] MEDS: MULTIVIT, IRON, MIN NO. 8, FA 1 TAB PO SCH (08:16)
[2017-05-17] MEDS: LACTOBACILLUS RHAMNOSUS GG 1 EACH CAP.SPRINK PO SCH ×2 (08:16→16:00)
[2017-05-17] MEDS: BACLOFEN (10 MG) 10 MG TABLET PO SCH ×3 (08:16→16:00)
[2017-05-17] MEDS: TOPIRAMATE 25 MG TABLET PO SCH ×2 (08:16→16:00)
[2017-05-17] MEDS: PANTOPRAZOLE 40 MG TABLET.DR PO SCH (08:16)
[2017-05-17] MEDS: GENTAMICIN 0.1% OINT 15 GM TUBE TP SCH ×2 (08:17→16:01)
[2017-05-17] MEDS: IV D5/0.45 NACL 1,000 ML IV PRN (12:02)
[2017-05-17] MEDS: LORAZEPAM INJ 2 MG/ML VIAL IV PRN ×2 (15:50→20:06)
[2017-05-17 16:00] VITALS: BP 116/77
--- NOTE | 2017-05-17 16:23 | NUR ---
DR LOFTON, PSYCH , A BEDSIDE
--- NOTE | 2017-05-17 17:00 | NUR ---
DRESSING CHANGED COMPLETED PER HOSPITAL PROTOCOL AND WOUND CARE INSTRUCTIONS.
[2017-05-17] MEDS: QUETIAPINE FUMARATE 25 MG TABLET PO SCH (17:23)
--- NOTE | 2017-05-17 18:56 | NUR ---
MS/RN CLOSING NOTE PATIENT IN BED IN STABLE CONDITION. ALERT AND ORIENTED TO NAME AND PLACE AND TIME. PERIOD OF AGITATION AND ERWIN. PATIENT CHANGED COLONOSCOPY BAGS HIMSELF, RN OBSERVED. PATIENT IS ON 5150 FOR DTS AND DTO. HOLD STARTED ON 05/16 AT 11:45AM AND WILL ON 05/19/17 AT 11:45AM. ALL NEEDS ATTENDED TO. BED IN LOW POSITION, LOCKED AND TWO SIDE RAILS ARE UP. CALL LIGHT WITHIN REACH. WILL ENDORSE TO NEXT SHIFT FOR CONTINUITY OF CARE.
[2017-05-17 19:30] VITALS: BP 121/68
--- NOTE | 2017-05-17 19:30 | NUR ---
MS RN NOTE RECEIVED PATIENT AWAKE AND ALERT IN BED. PATIENT IS CALM AND COMFORTABLE. IV SITE INTACT. WITH FLUIDS RUNNING ORDERED. BED LOCKED AND IN LOWEST POSITION. SIDE RAILS UP, CALL LIGHT WITHIN REACH. WILL CONTINUE TO MONITOR.
[2017-05-17] MEDS: QUETIAPINE FUMARATE 25 MG TABLET PO PRN (21:20)
[2017-05-17 22:00] VITALS: BP 121/68
[2017-05-18] MEDS: HYDROCODONE/APAP 5/325MG 1 EACH TABLET PO PRN ×3 (00:12→19:57)
[2017-05-18] MEDS: PIPERACILLIN /TAZOBACTAM 3.375 G in IV D5W 50 ML IV SCH ×5 (00:12→23:08)
[2017-05-18] MEDS: LORAZEPAM INJ 2 MG/ML VIAL IV PRN ×3 (00:12→19:56)
[2017-05-18] MEDS: IV D5/0.45 NACL 1,000 ML IV PRN (05:32)
--- NOTE | 2017-05-18 06:08 | NUR ---
MS RN NOTE PATIENT SLEEPING AT THIS TIME. KEPT COMFORTABLE THROUGH THE NIGHT. IV SITE INTACT WITH FLUIDS RUNNING ORDERED. SITTER AT BEDSIDE. WILL ENDORSE TO DAY SHIFT FOR GATITO.
--- NOTE | 2017-05-18 07:48 | NUR ---
RN NOTES RECEIVED PT. PT IS STABLE IN BED, RESTING. A/O X2. NO S/S OF DISTRESS OR SOB. PT DENIES PAIN AT THIS TIME. PT HAS FC WITH 1800 OUTPUT LAST SHIFT. COLOSTOMY BAG INTACT. IV ACCESS LOCATED ON RIGHT WRIST 18G, RUNNING D 51/2 NS AT 75 ML/HR. SAFETY MEASURES IN PLACE. CALL LIGHT WITHIN REACH. WILL CONTINUE TO MONITOR.
[2017-05-18 08:00] VITALS: BP 131/74
[2017-05-18] MEDS: LACTOBACILLUS RHAMNOSUS GG 1 EACH CAP.SPRINK PO SCH ×2 (08:14→17:17)
[2017-05-18] MEDS: TOPIRAMATE 25 MG TABLET PO SCH ×2 (08:14→17:16)
[2017-05-18] MEDS: MULTIVIT, IRON, MIN NO. 8, FA 1 TAB PO SCH (08:14)
[2017-05-18] MEDS: PANTOPRAZOLE 40 MG TABLET.DR PO SCH (08:14)
[2017-05-18] MEDS: QUETIAPINE FUMARATE 25 MG TABLET PO SCH ×3 (08:14→17:17)
[2017-05-18] MEDS: ASPIRIN 81 MG TAB.CHEW PO SCH (08:15)
[2017-05-18] MEDS: BACLOFEN (10 MG) 10 MG TABLET PO SCH ×3 (08:15→17:17)
[2017-05-18] MEDS: GENTAMICIN 0.1% OINT 15 GM TUBE TP SCH ×2 (08:20→17:20)
[2017-05-18 16:00] VITALS: BP 118/71
--- NOTE | 2017-05-18 18:43 | NUR ---
RN NOTES PT IS IN BED RESTING. SITTER IS AT BEDSIDE. NO S/S OF DISTRESS OR SOB. PT HAS NO C/O PAIN AT THIS MOMENT. PT IS ON RA, O2SAT ABOVE 95%. ALL PATIENT NEEDS ANTICIPATED AND MET. WILL ENDORSE TO BORING MACHINE OPERATOR HORIZONTAL FOR GATITO.
[2017-05-18 20:00] VITALS: BP 112/68
[2017-05-18] MEDS: ZOLPIDEM TARTRATE 5 MG TABLET PO PRN (23:08)
[2017-05-19 05:00] VITALS: BP 112/68
[2017-05-19] MEDS: PIPERACILLIN /TAZOBACTAM 3.375 G in IV D5W 50 ML IV SCH ×2 (05:12→11:27)
[2017-05-19] MEDS: HYDROCODONE/APAP 5/325MG 1 EACH TABLET PO PRN ×3 (05:12→20:47)
--- NOTE | 2017-05-19 07:59 | NUR ---
RN NOTES RECEIVED PT. PT IS ASLEEP IN BED. NO S/S OF SOB OR DISTRESS. NO C/O PAIN AT THIS TIME. PT IS ON A FC, CURRENTLY INTACT. IV ACCESS LOCATED ON LEFT FOREARM, 20 G RUNNING D5 1/2 NS AT 75 ML/HR. SAFETY MEASURES IN PLACE, CALL LIGHT WITHIN REACH. WILL CONTINUE TO MONITOR.
[2017-05-19 08:00] VITALS: BP 108/69
[2017-05-19] MEDS: QUETIAPINE FUMARATE 25 MG TABLET PO SCH ×3 (08:50→17:03)
[2017-05-19] MEDS: ASPIRIN 81 MG TAB.CHEW PO SCH (08:50)
[2017-05-19] MEDS: MULTIVIT, IRON, MIN NO. 8, FA 1 TAB PO SCH (08:51)
[2017-05-19] MEDS: TOPIRAMATE 25 MG TABLET PO SCH ×2 (08:51→17:04)
[2017-05-19] MEDS: PANTOPRAZOLE 40 MG TABLET.DR PO SCH (08:51)
[2017-05-19] MEDS: BACLOFEN (10 MG) 10 MG TABLET PO SCH ×3 (08:51→17:03)
[2017-05-19] MEDS: LACTOBACILLUS RHAMNOSUS GG 1 EACH CAP.SPRINK PO SCH ×2 (08:51→17:03)
[2017-05-19] MEDS: GENTAMICIN 0.1% OINT 15 GM TUBE TP SCH ×2 (08:54→17:05)
[2017-05-19] MEDS ORDERED: GENTAMICIN 80 MG/2 ML VIAL IM SCH (12:00)
[2017-05-19] MEDS: LORAZEPAM INJ 2 MG/ML VIAL IV PRN (12:12)
[2017-05-19] MEDS ORDERED: FEE PK DOSING 1 MIN EA MC ONE (12:15)
[2017-05-19 12:24] LABS: CALCIUM, SERUM 7.4 mg/dL (8.5-10.1); CREATININE 0.7 mg/dL (0.6-1.3); MAGNESIUM 1.6 mg/dL (1.8-2.4); POTASSIUM 3.7 mmol/L (3.5-5.1)
[2017-05-19 12:31] LABS: BASOPHILS # (AUTO) 0.1 /CMM (0.0-0.2); EOSINOPHILS # (AUTO) 0.4 /CMM (0.0-0.7); EOSINOPHILS % (AUTO) 4.8 % (0.0-6.0); HEMATOCRIT 36 % (39-51); HEMOGLOBIN 11.9 g/dL (13.5-17.5); LYMPHOCYTES # (AUTO) 2.3 /CMM (0.8-4.8); LYMPHOCYTES % (AUTO) 25.4 % (20.0-44.0); MEAN CORPUSCULAR HEMOGLOBIN 26 PG (26.0-33.0); MEAN CORPUSCULAR HGB CONC 33 g/dl (31.0-36.0); MEAN CORPUSCULAR VOLUME 78 fL (80-96); MONOCYTES # (AUTO) 0.7 /CMM (0.1-1.30); MONOCYTES % (AUTO) 7.5 % (2.0-12.0); NEUTROPHILS # (AUTO) 5.6 /CMM (1.8-8.9); NEUTROPHILS % (AUTO) 61.3 % (43.0-81.0); PLATELET COUNT (AUTO) 365 /CMM (150-450); RDW COEFFICIENT OF VARIATION 27.1 (11.5-15.0); RED BLOOD CELL COUNT(AUTO) 4.56 MIL/uL (4.5-6.0); WHITE BLOOD COUNT (AUTO) 9.1 K/uL (4.3-11.0)
[2017-05-19] MEDS ORDERED: GENTAMICIN IV SCH (13:00)
[2017-05-19] MEDS ORDERED: D5W IV SCH (13:00)
--- NOTE | 2017-05-19 13:40 | NUR ---
RN NOTES IV ACCESS STARTED ON LEFT FOREARM, 22G.
[2017-05-19 16:00] VITALS: BP 120/84
--- NOTE | 2017-05-19 16:51 | NUR ---
RN NOTES WOUND CARE AND DRESSING CHANGE PERFORMED ON PT. WELL TOLERATED.
--- NOTE | 2017-05-19 18:41 | NUR ---
RN CLOSING NOTE PT IS IN BED RESTING. PT HAS NO C/O PAIN AT THIS TIME. NO S/S OF DISTRESS OR SOB. PT 5150 HAS BEEN D/C, AWAITING MEDICAL CLEARANCE FOR HOSPITAL D/C. ALL PATIENT NEEDS ANTICIPATED AND MET. SAFETY MEASURES IN PLACE. CALL LIGHT WITHIN REACH. WILL ENDORSE TO SETTLEMENT AGENT FOR GATITO.
--- NOTE | 2017-05-19 19:00 | NUR ---
RN NOTES PT IS STABLE AND RESTING IN BED, A/OX3. NO S/S OF DISTRESS OR SOB. SAFETY MEASURES IN PLACE, ON LOW BED TO ENSURE SAFETY. CALL LIGHT WITHIN REACH. WILL CONTINUE TO MONITOR.
[2017-05-19 20:00] VITALS: BP 127/79
[2017-05-19] MEDS: ZOLPIDEM TARTRATE 5 MG TABLET PO PRN (21:16)
[2017-05-20] MEDS: LORAZEPAM INJ 2 MG/ML VIAL IV PRN (00:30)
--- NOTE | 2017-05-20 06:19 | NUR ---
MS RN CLOSING NOTES PATIENT COMFORTABLY ASLEEP AND EASILY AWAKEN, HEAD OF BED ELEVATED FOR BETTER LUNG EXPANSION AND GOOD CIRCULATION. TOLERATING ROOM AIR 02 SAT AT 98%, IV SITE NO S/S OF INFILTRATED PATENT AND FLUSHED, RESPIRATIONS EVEN AND UNLABORED, FREQUENT VISUAL CHECK DONE FOR SAFETY EVERY 2 HOURS. NURSING CARE RENDERED, NEEDS ATTENDED AND ANTICIPATED, F/C CARE PROVIDED. KEPT CLEAN AND DRY AND COMFORTABLE, OSTOMY CARE PROVIDED. GOOD SKIN CARE PROVIDED. OFFLOAD AT ALL TIMES. SAFE HAZARD FREE ENVIRONMENT PROVIDED. CALL LIGHT WITHIN EASY TO REACH, ON LOW BED AT ALL TIMES TO ENSURE SAFETY, WILL ENDORSE TO THE NEXT SHIFT CONTINUE PLAN OF CARE.
[2017-05-20 06:51] LABS: BASOPHILS % (AUTO) 0.5 % (0.0-2.0); EOSINOPHILS # (AUTO) 0.6 /CMM (0.0-0.7); EOSINOPHILS % (AUTO) 5.7 % (0.0-6.0); HEMATOCRIT 40 % (39-51); HEMOGLOBIN 13.4 g/dL (13.5-17.5); LYMPHOCYTES # (AUTO) 2.4 /CMM (0.8-4.8); LYMPHOCYTES % (AUTO) 24.5 % (20.0-44.0); MEAN CORPUSCULAR HEMOGLOBIN 26 PG (26.0-33.0); MEAN CORPUSCULAR HGB CONC 34 g/dl (31.0-36.0); MEAN CORPUSCULAR VOLUME 78 fL (80-96); MONOCYTES # (AUTO) 0.7 /CMM (0.1-1.30); MONOCYTES % (AUTO) 7.4 % (2.0-12.0); NEUTROPHILS # (AUTO) 6.2 /CMM (1.8-8.9); NEUTROPHILS % (AUTO) 61.9 % (43.0-81.0); PLATELET COUNT (AUTO) 414 /CMM (150-450); RDW COEFFICIENT OF VARIATION 27.7 (11.5-15.0); RED BLOOD CELL COUNT(AUTO) 5.11 MIL/uL (4.5-6.0)
[2017-05-20 07:23] LABS: CALCIUM, SERUM 8.9 mg/dL (8.5-10.1); CREATININE 0.8 mg/dL (0.6-1.3); MAGNESIUM 1.8 mg/dL (1.8-2.4); PHOSPHORUS 4.2 mg/dL (2.5-4.9); POTASSIUM 3.8 mmol/L (3.5-5.1)
--- NOTE | 2017-05-20 07:57 | NUR ---
RN NOTES RECEIVED PATIENT IN BED ASLEEP, AROUSES EASILY. A/O X 3. PATIENT IS COOPERATIVE. NO ACUTE DISTRESS, NO SOB NOTED. IV SITE INTACT AND PATENT. WU CATHETER IN PLACE, DRAINING CLEAR YELLOW URINE. BED IN LOW POSITION, LOCKED, SIDERAILS UP X 2. CALL LIGHT IN REACH. WILL CONTINUE TO MONITOR ACCORDINGLY.
[2017-05-20 08:00] VITALS: BP 117/73
[2017-05-20] MEDS: MULTIVIT, IRON, MIN NO. 8, FA 1 TAB PO SCH (08:48)
[2017-05-20] MEDS: PANTOPRAZOLE 40 MG TABLET.DR PO SCH (08:48)
[2017-05-20] MEDS: QUETIAPINE FUMARATE 25 MG TABLET PO SCH ×3 (08:49→18:16)
[2017-05-20] MEDS: ASPIRIN 81 MG TAB.CHEW PO SCH (08:49)
[2017-05-20] MEDS: LACTOBACILLUS RHAMNOSUS GG 1 EACH CAP.SPRINK PO SCH ×2 (08:49→18:18)
[2017-05-20] MEDS: BACLOFEN (10 MG) 10 MG TABLET PO SCH ×3 (08:50→18:15)
[2017-05-20] MEDS: GENTAMICIN 0.1% OINT 15 GM TUBE TP SCH ×2 (08:53→18:18)
[2017-05-20] MEDS: TOPIRAMATE 25 MG TABLET PO SCH ×2 (08:54→18:17)
--- NOTE | 2017-05-20 09:01 | NUR ---
WOUND CARE CONSULT: PT REFUSED SKIN ASSESSMENT. PT SEEN ON PREVIOUS ADMISSION WITH LOWER EXTREMITY WOUNDS, RT LOWER BUTTOCK STAGE 4 AND LEFT BUTTOCK WOUNDS. REVIEWED PHOTOS WHICH SHOW AT LEAST PARTIAL THICKNESS WOUNDS TO LEFT BUTTOCK AND DEEP WOUND TO RT BUTTOCK WITH SCARRING TO SACRAL AREA. PT FOLLOWED BY DPM. RECOMMEND SURGICAL CONSULT FOR BUTTOCKS. ALL SKIN PROTECTION AND WOUND RECOMMENDATIONS DISCUSSED WITH NURSING STAFF. PT TO BE PLACED ON ISOFLEX LOW AIRLOSS BED WHEN AVAILABLE. WILL SEE PRN. IN AGREEMENT WITH PLAN OF CARE.
[2017-05-20] MEDS ORDERED: HYDROGEL DRESSING 90 GM TUBE TP PRN (09:30)
[2017-05-20] MEDS: HYDROGEL DRESSING 90 GM TUBE TP SCH (13:43)
[2017-05-20] MEDS: GENTAMICIN 480 MG in IV D5W 100 ML IV SCH (13:44)
[2017-05-20] MEDS: ACETAMINOPHEN 325 MG TABLET PO PRN ×2 (13:44→20:31)
[2017-05-20 16:00] VITALS: BP 118/61
--- NOTE | 2017-05-20 19:15 | NUR ---
RN NOTES PATIENT IN BED RESTING. NO ACUTE DISTRESS, NO SOB NOTED. DENIES PAIN OR DISCOMFORT. ALL NEEDS ATTENDED AND PROVIDED. KEPT SAFE AND COMFORTABLE. BED IN LOW POSITION, LOCKED, SIDERAILS UP X2, CALL LIGHT IN REACH. ENDORSED TO FRUIT OR NUT FARMWORKER RN FOR GATITO.
--- NOTE | 2017-05-20 19:30 | NUR ---
MS RN OPENING NOTES: PATIENT IN BED, AOX4, ON ROOM AIR, BREATHING EVEN AND UNLABORED. APPEARS CALM AND IN NO DISTRESS, DENIES PAIN, WAS SEEN DRAINING HIS COLOSTOMY INDEPENDENTLY AT THIS TIME. PIV OVER LFA G22 INTACT AND PATENT TO FLUSH. NOTED COLOSTOMY BAG OVER LLQ OF ABDOMEN, WITH STOMA APPEARING TO BE PROLAPSED. WU CATHETER IN PLACE DRAINING CLEAR YELLOW URINE. PROVIDED FOR COMFORT AND SAFETY. BED IN LOWEST AND LOCKED POSITION, SIDERAILS UP X3. CALL LIGHT WITHIN REACH. WILL CONT TO MONITOR.
[2017-05-20 20:00] VITALS: BP 118/73
--- NOTE | 2017-05-20 20:31 | NUR ---
RN NOTES: ADMINISTERED TYLENOL 650 MG PO FOR HEADACHE SCALED AT 5/10. PROVIDED FOR COMFORT. WILL CONT TO MONITOR.
[2017-05-20] MEDS: ZOLPIDEM TARTRATE 5 MG TABLET PO PRN (21:04)
--- NOTE | 2017-05-20 21:10 | NUR ---
RN NOTES: WOUND DRESSING DONE ORDERED OVER CORRIE BUTTOCKS AND WOUNDS AT LEFT ANKLE AND FOOT. PATIENT DENIES PAIN, BUT REQUESTED FOR AMBIEN AFTER WOUND CARE. AMBIEN 5 MG GIVEN PO. PROVIDED FOR SAFETY. WILL CONT TO MONITOR.
--- NOTE | 2017-05-21 05:37 | NUR ---
RN NOTES: PATIENT REFUSED TO HAVE HIS CORRIE BUTTOCKS WOUNDS ASSESSED FOR SOILING FOR NOW.
--- NOTE | 2017-05-21 06:49 | NUR ---
MS RN CLOSING NOTES: PATIENT IN BED, AOX4, ON ROOM AIR, BREATHING EVEN AND UNLABORED. APPEARS CALM AND IN NO DISTRESS. DID NOT VERBALIZE ANY AUDITORY/ VISUAL HALLUCINATION; NO BIZARRE BEHAVIOR THROUGH NIGHT. WAS ABLE TO SLEEP FOR 6 HRS. PIV OVER LFA G22 INTACT AND PATENT TO FLUSH. WU CATHETER IN PLACE DRAINING CLEAR YELLOW URINE. NO ACUTE CHANGE IN CONDITION NOTED THROUGH SHIFT. WOUND DRESSING REDRESSED. PROVIDED FOR COMFORT AND SAFETY. BED IN LOWEST AND LOCKED POSITION, SIDERAILS UP X3. WILL ENDORSE TO AM RN FOR GATITO.
[2017-05-21 07:04] LABS: BASOPHILS # (AUTO) 0.1 /CMM (0.0-0.2); BASOPHILS % (AUTO) 0.7 % (0.0-2.0); EOSINOPHILS # (AUTO) 0.4 /CMM (0.0-0.7); EOSINOPHILS % (AUTO) 4.5 % (0.0-6.0); HEMATOCRIT 39 % (39-51); HEMOGLOBIN 12.7 g/dL (13.5-17.5); LYMPHOCYTES % (AUTO) 22.5 % (20.0-44.0); MEAN CORPUSCULAR HEMOGLOBIN 26 PG (26.0-33.0); MEAN CORPUSCULAR HGB CONC 33 g/dl (31.0-36.0); MEAN CORPUSCULAR VOLUME 78 fL (80-96); MONOCYTES # (AUTO) 0.8 /CMM (0.1-1.30); MONOCYTES % (AUTO) 8.7 % (2.0-12.0); NEUTROPHILS # (AUTO) 5.6 /CMM (1.8-8.9); NEUTROPHILS % (AUTO) 63.6 % (43.0-81.0); PLATELET COUNT (AUTO) 396 /CMM (150-450); RDW COEFFICIENT OF VARIATION 27.4 (11.5-15.0); RED BLOOD CELL COUNT(AUTO) 4.96 MIL/uL (4.5-6.0); WHITE BLOOD COUNT (AUTO) 8.8 K/uL (4.3-11.0)
--- NOTE | 2017-05-21 07:10 | NUR ---
RN Initial Notes: Received patient resting in bed. Patient alert oriented X4. Non-labored breathing noted. Patient on room air. No signs of distress. Patient denies pain. IV site patent and intact. Bed in lowest/locked position. Call light within reach. Will continue to monitor.
[2017-05-21 07:35] LABS: CALCIUM, SERUM 8.8 mg/dL (8.5-10.1); CREATININE 0.7 mg/dL (0.6-1.3); MAGNESIUM 1.7 mg/dL (1.8-2.4); PHOSPHORUS 4.1 mg/dL (2.5-4.9); POTASSIUM 3.8 mmol/L (3.5-5.1)
[2017-05-21 08:00] VITALS: BP_SYST 105; BP_SYST 98; BP_DIAS 50; BP_DIAS 64
[2017-05-21] MEDS: PANTOPRAZOLE 40 MG TABLET.DR PO SCH (08:08)
[2017-05-21] MEDS: QUETIAPINE FUMARATE 25 MG TABLET PO SCH ×3 (08:08→16:34)
[2017-05-21] MEDS: MULTIVIT, IRON, MIN NO. 8, FA 1 TAB PO SCH (08:08)
[2017-05-21] MEDS: ASPIRIN 81 MG TAB.CHEW PO SCH (08:08)
[2017-05-21] MEDS: BACLOFEN (10 MG) 10 MG TABLET PO SCH ×3 (08:08→16:34)
[2017-05-21] MEDS: LACTOBACILLUS RHAMNOSUS GG 1 EACH CAP.SPRINK PO SCH ×2 (08:09→16:34)
[2017-05-21] MEDS: HYDROGEL DRESSING 90 GM TUBE TP SCH (08:12)
[2017-05-21] MEDS: TOPIRAMATE 25 MG TABLET PO SCH ×2 (08:18→16:33)
[2017-05-21] MEDS: GENTAMICIN 0.1% OINT 15 GM TUBE TP SCH ×2 (11:20→16:36)
[2017-05-21] MEDS: Magnesium 1GM/D5W 100ML PREMIX 100 ML IV SCH ×2 (11:20→12:46)
--- NOTE | 2017-05-21 11:49 | NUR ---
ASHLEY along with briefcase sewer Yovanny met with pt. bedside. ASHLEY is familiar with pt. from previous admissions. Pt. is alert and oriented x4. Pt. was sitting on his bed. Pt. lives on and off at his mom's or at a friend's place. Pt. is a quadriplegic and uses a wheelchair to ambulate. ASHLEY inquired with pt. his discharge plan once medically cleared. Pt. informed SW he will go to is friend's house. ASHLEY inquired address to friend's place so SW can arrange taxi transportation. Pt. refused to give name and address to friend's house and stated " I have money, and I get get there." Pt. is a drug user and uses methamphetamines frequently. Pt. declined resources to food bruce, drug rehabs, transitional housing, shelters etc. Trae Velázquez was informed of discharge plan.
[2017-05-21] MEDS: ACETAMINOPHEN 325 MG TABLET PO PRN ×2 (11:57→20:52)
--- NOTE | 2017-05-21 11:57 | NUR ---
MS RN Notes: Patient states having a headache of 3 out of 10. Tylenol given
--- NOTE | 2017-05-21 13:00 | NUR ---
MS DELONG Notes: Patient states that pain has subsided 10 09/22. Patient is PERRLA. No signs of distress. Blood pressure within normal range. Patient alert oriented x4. Addendum: 05/21/17 at 1924 by TEO WATTERS RN Patient states that pain has subsided to 09/22
--- NOTE | 2017-05-21 13:57 | NUR ---
MS DELONG Notes: Awaiting Gentamicin trough results before administering the 1300 dose
--- NOTE | 2017-05-21 14:10 | NUR ---
MS RN Notes: Pharmacy gave permission to administer the 1300 Gentamicin till the trough results are in
[2017-05-21] MEDS: GENTAMICIN 480 MG in IV D5W 100 ML IV SCH (14:20)
[2017-05-21 16:00] VITALS: BP 103/70
--- NOTE | 2017-05-21 17:44 | NUR ---
MS RN Notes: Notified Dr. Loyola about the patient's VTE prophylaxis treatment. No new orders.
--- NOTE | 2017-05-21 19:09 | NUR ---
MS RN Closing: Patient resting in bed. Patient alert oriented X4. Non-labored breathing noted. Patient on room air. No signs of distress. Patient denies pain. IV site patent and intact. Bed in lowest/locked position. Call light within reach. Will endorse to next shift for GATITO
--- NOTE | 2017-05-21 19:15 | NUR ---
MS RN NOTES: PATIENT IN BED, AWAKE, AOX4, ON ROOM AIR, NO DISTRESS. BREATHING EVEN AND UNLABORED. APPEARS CALM. DENIES PAIN OR DISCOMFORT. IV SITE ON LFA G22 INTACT AND PATENT , FLUSHED,NO INFILTRATION NOTED. NOTED COLOSTOMY BAG ON LLQ OF ABDOMEN, DRAINING WELL. WU CATHETER IN PLACE DRAINING WITH CLEAR YELLOW URINE. ALL NEEDS ATTENDED. BED IN LOWEST LEVEL AND ON LOCKED POSITION. SAFETY PRECAUTIONS OBSERVED. CALL LIGHT WITHIN REACH. WILL CONT TO MONITOR.
[2017-05-21 20:00] VITALS: BP 132/70
[2017-05-21] MEDS: ZOLPIDEM TARTRATE 5 MG TABLET PO PRN (23:10)
[2017-05-22] MEDS: ACETAMINOPHEN 325 MG TABLET PO PRN ×2 (06:03→21:05)
--- NOTE | 2017-05-22 07:01 | NUR ---
MS RN NOTES: PATIENT IN BED, RESTING COMFORTABLY AT THIS TIME, AROUSES EASILY, AOX4, ON ROOM AIR, NO DISTRESS. BREATHING EVEN AND UNLABORED. APPEARS CALM. DENIES PAIN OR DISCOMFORT. IV SITE ON LFA G22 INTACT AND PATENT , FLUSHED,NO INFILTRATION NOTED. NOTED COLOSTOMY BAG ON LLQ OF ABDOMEN, DRAINING WELL. WU CATHETER IN PLACE DRAINING WITH CLEAR YELLOW URINE. ALL NEEDS ATTENDED & MET. WOUND TREATMENT DONE AND DRESSING CHANGED. PT SIGNED THE CONSENT FOR DEBRIDEMENT TODAY, PROCEDURE EXPLAINED. BED IN LOWEST LEVEL AND ON LOCKED POSITION. SAFETY PRECAUTIONS OBSERVED. CALL LIGHT WITHIN REACH. WILL ENDORSE TO NEXT SHIFT FOR [place].
[2017-05-22 07:08] LABS: CALCIUM, SERUM 8.7 mg/dL (8.5-10.1); CREATININE 0.7 mg/dL (0.6-1.3); POTASSIUM 3.8 mmol/L (3.5-5.1)
--- NOTE | 2017-05-22 07:41 | NUR ---
RN NOTES RECEIVED PATIENT IN BED, AWAKE, HOB ELEVATED. NO SOB OR DISTRESS NOTED. A/ O X 4 VERBALLY RESPONSIVE AND ABLE TO MAKE NEEDS KNOWN. IV INTACT AND PATENT. KEPT PATIENT CLEAN AND COMFORTABLE IN BED, CALL LIGHT WITHIN PATIENT REACH. WILL CONTINUE TO MONITOR ACCORDINGLY.
[2017-05-22 08:00] VITALS: BP 120/69
[2017-05-22] MEDS: BACLOFEN (10 MG) 10 MG TABLET PO SCH ×3 (08:19→16:39)
[2017-05-22] MEDS: MULTIVIT, IRON, MIN NO. 8, FA 1 TAB PO SCH (08:19)
[2017-05-22] MEDS: ASPIRIN 81 MG TAB.CHEW PO SCH (08:19)
[2017-05-22] MEDS: PANTOPRAZOLE 40 MG TABLET.DR PO SCH (08:19)
[2017-05-22] MEDS: LACTOBACILLUS RHAMNOSUS GG 1 EACH CAP.SPRINK PO SCH ×2 (08:19→16:39)
[2017-05-22] MEDS: TOPIRAMATE 25 MG TABLET PO SCH ×2 (08:20→16:39)
[2017-05-22] MEDS: QUETIAPINE FUMARATE 25 MG TABLET PO SCH ×3 (08:20→16:39)
[2017-05-22] MEDS: HYDROGEL DRESSING 90 GM TUBE TP SCH (08:22)
[2017-05-22] MEDS: GENTAMICIN 0.1% OINT 15 GM TUBE TP SCH ×2 (08:22→16:40)
[2017-05-22] MEDS: GENTAMICIN 480 MG in IV D5W 100 ML IV SCH (12:22)
[2017-05-22] MEDS: HYDROCODONE/APAP 5/325MG 1 EACH TABLET PO PRN (14:36)
--- NOTE | 2017-05-22 14:50 | NUR ---
RN NOTES PATIENT IS LYING DOWN IN BED WITH NO SOB OR DISTRESS NOTED.
[2017-05-22 16:00] VITALS: BP 109/72
--- NOTE | 2017-05-22 19:30 | NUR ---
RN NOTES RECEIVED PATIENT IN BED AWAKE, AO X 3, ABLE TO MAKE NEEDS KNOWN. NO ACUTE DISTRESS NOTED. DENIES ANY PAIN AT THIS TIME. IV SITE PATENT, INTACT; FLUSHED. COLOSTOMY BACK INTACT. PATIENT CHANGES BAG HIMSELF; SUPPLIES AT BEDSIDE. WU CATHETER PATENT, INTACT; DRAINING CLEAR YELLOW URINE. SAFETY REMINDERS GIVEN. ON LOW BED WITH BILATERAL UPPER SIDE RAILS UP.. CALL LIGHT WITHIN EASY REACH. WILL CONTINUE TO MONITOR.
--- NOTE | 2017-05-22 19:39 | NUR ---
RN NOTES ALL NEEDS PROVIDED, ATTENDED, AND ANTICIPATED. KEPT PT. CLEAN AND COMFORTABLE IN BED. CALL LIGHT WITHIN PATIENT REACH. WILL CONTINUE TO MONITOR ACCORDINGLY. ENDORSED TO NEXT SHIFT RN TO CONTINUE CARE.
[2017-05-22 20:00] VITALS: BP 111/65
[2017-05-22] MEDS: ZOLPIDEM TARTRATE 5 MG TABLET PO PRN (23:03)
[2017-05-23] MEDS: HYDROCODONE/APAP 5/325MG 1 EACH TABLET PO PRN ×3 (00:32→20:17)
[2017-05-23] MEDS: ACETAMINOPHEN 325 MG TABLET PO PRN (05:57)
--- NOTE | 2017-05-23 06:17 | NUR ---
RN NOTES PATIENT ASLEEP, EASILY AROUSABLE. RESPIRATIONS EVEN. NO SIGNS OF PAIN NOTED. DUE MEDS GIVEN WITH NO ASE NOTED. NEEDS ATTENDED. SAFETY PRECAUTIONS AND COMFORT MEASURES IN PLACE. WILL GIVE REPORT TO DAY SHIFT FOR CONTINUITY OF CARE.
[2017-05-23 06:46] LABS: CALCIUM, SERUM 8.4 mg/dL (8.5-10.1); CREATININE 0.7 mg/dL (0.6-1.3); POTASSIUM 3.9 mmol/L (3.5-5.1)
--- NOTE | 2017-05-23 07:20 | NUR ---
RN NOTES PT IS IN BED, SLEEPING COMFORTABLY. PT ON RA, NO SOB OR SIGNS OF DISTRESS. IV ON LFA INTACT AND PATENT, SL. COLOSTOMY ON LEFT SIDE INTACT AND WU CATHETER INTACT AND DRAINING. SAFETY MEASURES ARE IN PLACE, CALL LIGHT IS IN REACH. WILL CONTINUE TO MONITOR.
[2017-05-23 08:00] VITALS: BP 128/71
[2017-05-23] MEDS: MULTIVIT, IRON, MIN NO. 8, FA 1 TAB PO SCH (08:16)
[2017-05-23] MEDS: QUETIAPINE FUMARATE 25 MG TABLET PO SCH ×3 (08:16→16:17)
[2017-05-23] MEDS: BACLOFEN (10 MG) 10 MG TABLET PO SCH ×3 (08:16→16:17)
[2017-05-23] MEDS: ASPIRIN 81 MG TAB.CHEW PO SCH (08:16)
[2017-05-23] MEDS: PANTOPRAZOLE 40 MG TABLET.DR PO SCH (08:16)
[2017-05-23] MEDS: TOPIRAMATE 25 MG TABLET PO SCH ×2 (08:16→16:17)
[2017-05-23] MEDS: LACTOBACILLUS RHAMNOSUS GG 1 EACH CAP.SPRINK PO SCH ×2 (08:16→16:16)
[2017-05-23] MEDS: HYDROGEL DRESSING 90 GM TUBE TP SCH (08:17)
[2017-05-23] MEDS: GENTAMICIN 0.1% OINT 15 GM TUBE TP SCH ×2 (08:17→16:18)
[2017-05-23] MEDS: GENTAMICIN 480 MG in IV D5W 100 ML IV SCH (12:45)
[2017-05-23 16:00] VITALS: BP_SYST 100; BP_SYST 110; BP_DIAS 71
--- NOTE | 2017-05-23 18:37 | NUR ---
RN NOTES PT IS IN BED, SITTING COMFORTABLY IN HIGH FOWLERS POSITION. PT ON RA, O2 SAT 98%, NO SOB. PT DENIES ANY PAIN AT THIS TIME. ALL MEDICATIONS WERE GIVEN ORDERED. COLOSTOMY BAG AND WU CATHETER WERE CHANGED, WU OUTPUT 1650 ML. WOUND CARE WAS DONE AND DRESSINGS WERE CHANGED PER TREATMENT ORDER. PT MOTIVATED TO SELF-CARE. IV ON LFA INTACT AND PATENT, SL. SAFETY MEASURES ARE IN PLACE, CALL LIGHT IS IN REACH. WILL ENDORSE TO JEWELRY STORE MANAGER RN FOR CONTINUITY OF CARE.
--- NOTE | 2017-05-23 19:35 | NUR ---
MS/RN OPENING NOTES PT AWAKE, HOB ELEVATED IN HIGH FOWLERS. A/OX4, ON ROOM AIR, BREATHING EVEN AND UNLABORED. DENIES SOB, NO S/S OF DISTRESS NOTED. NO COMPLAINTS OF PAIN AT THIS TIME. COLOSTOMY TO LEFT ABDOMEN IN PLACE. WU IN PLACE AND DRAINING WELL. IV TO LEFT FA PATENT AND INTACT. BED IN LOW/LOCKED POSITION WITH CALL LIGHT IN REACH. SIDE RAILS UPX2. BLE OFFLOADED WITH PILLOWS. WILL CONTINUE TO MONITOR
[2017-05-23 20:00] VITALS: BP 107/59
[2017-05-23] MEDS: ZOLPIDEM TARTRATE 5 MG TABLET PO PRN (23:02)
--- NOTE | 2017-05-24 03:00 | NUR ---
MS/RN NOTES PT ASLEEP, BREATHING EVEN AND UNLABORED. NO S/S OF DISTRESS NOTED. WILL CONTINUE TO MONITOR
[2017-05-24] MEDS: ACETAMINOPHEN 325 MG TABLET PO PRN (06:04)
--- NOTE | 2017-05-24 06:45 | NUR ---
MS/RN CLOSING NOTES PT ASLEEP, EASILY AROUSABLE TO NAME. A/OX4. ON ROOM AIR, BREATHING EVEN AND UNLABORED. DENIES SOB. MENTIONED THAT HE HAD A HEADACHE 11/20, ADMINISTERED PRN TYLENOL. COLOSTOMY IN PLACE. WU IN PLACE AND DRAINING WELL. WOUND CARE PROVIDED. REMINDED PT TO TURN/REPOSITION Q2H AND PRN. HEELS OFFLOADED AT ALL TIMES. IV TO LFA PATENT AND INTACT. MADE PT COMFORTABLE THROUGHOUT SHIFT. ALL NEEDS MET AND ATTENDED. BED REMAINS IN LOW/LOCKED POSITION WITH CALL LIGHT IN REACH. SIDE RAILS UPX2. WILL ENDORSE TO AM SHIFT GATITO.
[2017-05-24 07:12] LABS: CALCIUM, SERUM 8.4 mg/dL (8.5-10.1); CREATININE 0.7 mg/dL (0.6-1.3); POTASSIUM 3.8 mmol/L (3.5-5.1)
--- NOTE | 2017-05-24 07:20 | NUR ---
ms rn initial notes Received patient in bed, asleep, head of bed elevated, no SOB or distress noted. On room air and tolerated well. Alert and oriented x 4, verbally responsive and able to make all needs known. IV intact and patent. Garcia cath in placed attached to drainage bag with no sediment noted in the bag and tubing. Kept patient clean and comfortable in bed, call light within patient reach, will continue to monitor accordingly.
[2017-05-24 08:00] VITALS: BP 113/72
[2017-05-24] MEDS: LACTOBACILLUS RHAMNOSUS GG 1 EACH CAP.SPRINK PO SCH ×2 (09:02→16:19)
[2017-05-24] MEDS: PANTOPRAZOLE 40 MG TABLET.DR PO SCH (09:02)
[2017-05-24] MEDS: MULTIVIT, IRON, MIN NO. 8, FA 1 TAB PO SCH (09:02)
[2017-05-24] MEDS: BACLOFEN (10 MG) 10 MG TABLET PO SCH ×3 (09:03→16:19)
[2017-05-24] MEDS: QUETIAPINE FUMARATE 25 MG TABLET PO SCH ×3 (09:03→16:19)
[2017-05-24] MEDS: ASPIRIN 81 MG TAB.CHEW PO SCH (09:03)
[2017-05-24] MEDS: TOPIRAMATE 25 MG TABLET PO SCH ×2 (09:03→16:19)
[2017-05-24] MEDS: HYDROGEL DRESSING 90 GM TUBE TP SCH (09:04)
[2017-05-24] MEDS: GENTAMICIN 0.1% OINT 15 GM TUBE TP SCH ×2 (09:04→16:20)
[2017-05-24] MEDS: HYDROCODONE/APAP 5/325MG 1 EACH TABLET PO PRN (12:53)
[2017-05-24] MEDS: GENTAMICIN 480 MG in IV D5W 100 ML IV SCH (12:53)
[2017-05-24 16:00] VITALS: BP_SYST 116; BP_SYST 122; BP_DIAS 71; BP_DIAS 74
--- NOTE | 2017-05-24 19:24 | NUR ---
ms rn closing notes All needs provided, attended, and anticipated, kept patient clean and comfortable in bed, call light within patient reach, endorsed to next shift RN to continue care. Garcia output of 1400ml.
--- NOTE | 2017-05-24 19:30 | NUR ---
MS/RN OPENING NOTES PT AWAKE, A/OX4, SITTING UP IN BED HIGH FOWLERS POSITION. ON ROOM AIR, BREATHING EVEN AND UNLABORED. DENIES SOB OR PAIN AT THIS TIME. IV TO LEFT FOREARM PATENT AND INTACT. COLOSTOMY BAG NOTED TO LEFT ABDOMEN AND WU IN PLACE AND DRAINING WELL. BED IN LOW/LOCKED POSITION WITH CALL LIGHT IN REACH. SIDE RAILS UPX2, HEELS OFFLOADED. WILL CONTINUE TO MONITOR
[2017-05-24 20:00] VITALS: BP 106/65
[2017-05-25] MEDS: ZOLPIDEM TARTRATE 5 MG TABLET PO PRN ×2 (00:47→22:57)
[2017-05-25] MEDS: HYDROCODONE/APAP 5/325MG 1 EACH TABLET PO PRN ×3 (03:53→21:11)
--- NOTE | 2017-05-25 07:03 | NUR ---
MS/RN CLOSING NOTES PT ASLEEP, EASILY AROUSABLE TO NAME. ON ROOM AIR, BREATHING EVEN AND UNLABORED. DENIES SOB. DENIES PAIN AT THIS TIME. COLOSTOMY AND WU IN PLACE. WOUND CARE PROVIDED. REMINDED PT ABOUT TURNING/REPOSITIONING Q2H AND PRN. PT VERBALIZED UNDERSTANDING. IV TO LFA PATENT AND INTACT. ALL NEEDS MET AND ATTENDED. MADE PT COMFORTABLE THROUGHOUT SHIFT. BED IN LOW/LOCKED POSITION WITH CALL LIGHT IN REACH. SIDE RAILS UPX2. WILL ENDORSE TO AM SHIFT GATITO.
--- NOTE | 2017-05-25 07:25 | NUR ---
RN NOTES PT IS IN BED, RESTING COMFORTABLY. PT ON RA, NO SOB OR DISTRESS NOTED. IV ON LFA INTACT AND PATENT, SL. WU AND COLOSTOMY AND INTACT AND DRAINING. SAFETY MEASURES ARE IN PLACE, CALL LIGHT IS IN REACH. WILL CONTINUE TO MONITOR.
[2017-05-25 07:33] LABS: CALCIUM, SERUM 8.4 mg/dL (8.5-10.1); CREATININE 0.8 mg/dL (0.6-1.3); POTASSIUM 3.8 mmol/L (3.5-5.1)
[2017-05-25 08:00] VITALS: BP 111/75
[2017-05-25] MEDS: QUETIAPINE FUMARATE 25 MG TABLET PO SCH ×3 (08:08→16:55)
[2017-05-25] MEDS: TOPIRAMATE 25 MG TABLET PO SCH ×2 (08:08→16:54)
[2017-05-25] MEDS: ASPIRIN 81 MG TAB.CHEW PO SCH (08:08)
[2017-05-25] MEDS: BACLOFEN (10 MG) 10 MG TABLET PO SCH ×3 (08:08→16:54)
[2017-05-25] MEDS: GENTAMICIN 0.1% OINT 15 GM TUBE TP SCH ×2 (08:08→16:54)
[2017-05-25] MEDS: PANTOPRAZOLE 40 MG TABLET.DR PO SCH (08:08)
[2017-05-25] MEDS: LACTOBACILLUS RHAMNOSUS GG 1 EACH CAP.SPRINK PO SCH ×2 (08:08→16:54)
[2017-05-25] MEDS: MULTIVIT, IRON, MIN NO. 8, FA 1 TAB PO SCH (08:08)
[2017-05-25] MEDS: HYDROGEL DRESSING 90 GM TUBE TP SCH (08:09)
[2017-05-25] MEDS: GENTAMICIN IV SCH (12:33)
[2017-05-25] MEDS: D5W IV SCH (12:33)
[2017-05-25 16:00] VITALS: BP 118/75
--- NOTE | 2017-05-25 18:30 | NUR ---
RN NOTES PT IS IN BED, SITTING IN HIGH FOWLERS POSITION. NO SIGNS OF DISTRESS OR COMPLAINTS OF PAIN. ALL MEDS WERE GIVEN ORDERED. IV ON LFA INTACT AND PATENT,SL. WOUND CARE/DRESSING CHANGES WERE DONE. COLOSTOMY BAG WAS CHANGED. WU CATHETER IS INTACT AND DRAINING, OUTPUT 1350 ML. SAFETY MEASURES ARE IN PLACE, CALL LIGHT IS IN REACH. WILL ENDORSE TO TRACK SUBWAY REPAIR SUPERVISOR RN FOR CONTINUITY OF CARE.
--- NOTE | 2017-05-25 19:30 | NUR ---
RN INITIAL NOTES: RECEIVED REPORT FROM TARUUS DELONG, PT IN BED, AWAKE, A/O X3 ON RA RESPIRATION EVEN AND UNLABORED, DENIES ANY PAIN OR DISCOMFORT AT THIS TIME, PT HAS COLOSTOMY IN PLACED AND PT CHANGING HIS OWN COLOSTOMY BAG BY HIMSELF, ALSO PT HAS WU CATHETER IN PLACED, DRAINING INTO YELLOW COLORED URINE, LFA IV ACCESS PATENT AND FLUSHING WELL, ON HL. SAFETY PRECAUTIONS FOR FALL INITIATED CALL LIGHT IN REACH, WILL CONTINUE TO MONITOR
[2017-05-25 20:00] VITALS: BP 101/72
[2017-05-25 20:13] VITALS: BP 107/72
--- NOTE | 2017-05-25 21:11 | NUR ---
PRN NORCO: PT C/O 03/22 HEAD ACHE REQUESTING FOR NORCO, PRN NORCO 5/325 MG TAB PO ADMINISTERED TO THE PT AT THIS TIME, WILL CONTINUE TO MONITOR AND REASSESS
--- NOTE | 2017-05-25 22:57 | NUR ---
PRN AMBIEN: PT CALLED REQUESTING FOR SLEEPING PILL, PRN AMBIEN 5MG TAB PO ADMINISTERED TO THE PT AT THIS TIME, WILL CONTINUE TO MONITOR
[2017-05-26] MEDS: HYDROCODONE/APAP 5/325MG 1 EACH TABLET PO PRN ×3 (06:42→22:17)
--- NOTE | 2017-05-26 06:42 | NUR ---
PRN NORCO: PT C/O HEAD ACHE REQUESTING FOR NORCO, PS 03/22 PRN NORCO 5/325 MG TAB PO ADMINISTERED TO THE PT AT THIS TIME, WILL CONTINUE TO MONITOR AND REASSESS
--- NOTE | 2017-05-26 07:02 | NUR ---
RN CLOSING NOTES: PT IN BED, AWAKE, A/O X3, DENIES ANY SOB, JUST RECEIVED PAIN MEDICATION NOT TOO LONG AGO, COLOSTOMY IN PLACE, REMAINS WITH WU CATHETER , WU BAG EMPTIED BY RIBBON INKER, VS REMAINS STABLE, NEEDS ATTENDED, BLE OFFLOADED, AWAITING FOR PLACEMENT, CM INVOLVED, SAFETY PRECAUTIONS FOR FALL REMAINS ENGAGED, CALL LIGHT ION REACH, WILL ENDORSE TO DAY RN FOR GATITO.
[2017-05-26 08:00] VITALS: BP 113/71
[2017-05-26 08:18] LABS: CALCIUM, SERUM 8.3 mg/dL (8.5-10.1); CREATININE 0.8 mg/dL (0.6-1.3); POTASSIUM 3.9 mmol/L (3.5-5.1)
--- NOTE | 2017-05-26 08:20 | NUR ---
MS RN RECEIVED ON BED, AWAKE,ALERT,ORIENTED X4,NOT IN ANY FORM OF DISTRESS, RESPIRATIONS EVEN AND UNLABORED, NO SOB NOTED, LUNGS ARE CLEAR, ABDOMEN SOFT, POSITIVE BOWEL SOUNDS,DENIES PAIN AT THIS TIME, WILL MONITOR PATIENT.
--- NOTE | 2017-05-26 09:20 | NUR ---
MS DELONG BREAKFAST SERVED,DUE MEDS GIVEN,TOLERATED WELL.
[2017-05-26] MEDS: MULTIVIT, IRON, MIN NO. 8, FA 1 TAB PO SCH (09:22)
[2017-05-26] MEDS: TOPIRAMATE 25 MG TABLET PO SCH ×2 (09:22→17:35)
[2017-05-26] MEDS: QUETIAPINE FUMARATE 25 MG TABLET PO SCH ×3 (09:22→17:34)
[2017-05-26] MEDS: BACLOFEN (10 MG) 10 MG TABLET PO SCH ×3 (09:22→17:34)
[2017-05-26] MEDS: LACTOBACILLUS RHAMNOSUS GG 1 EACH CAP.SPRINK PO SCH ×2 (09:22→17:34)
[2017-05-26] MEDS: ASPIRIN 81 MG TAB.CHEW PO SCH (09:22)
[2017-05-26] MEDS: GENTAMICIN 0.1% OINT 15 GM TUBE TP SCH ×2 (09:26→17:35)
[2017-05-26] MEDS: HYDROGEL DRESSING 90 GM TUBE TP SCH (09:28)
[2017-05-26] MEDS: PANTOPRAZOLE 40 MG TABLET.DR PO SCH (09:51)
--- NOTE | 2017-05-26 12:00 | NUR ---
MS RN COLOSTOMY BAG CHANGE AND DRESSINGS, DENIES PAIN AT THIS TIME,ALL NEEDS ATTENDED.
[2017-05-26] MEDS: ACETAMINOPHEN 325 MG TABLET PO PRN (12:48)
[2017-05-26] MEDS: D5W IV SCH (12:49)
[2017-05-26] MEDS: GENTAMICIN IV SCH (12:49)
[2017-05-26 16:00] VITALS: BP 109/66
--- NOTE | 2017-05-26 18:05 | NUR ---
MS RN ON BED, NO DISTRESS NOTED,ALL NEEDS ATTENDED.
[2017-05-26 20:00] VITALS: BP 128/73
[2017-05-26] MEDS: QUETIAPINE FUMARATE 25 MG TABLET PO PRN (21:15)
--- NOTE | 2017-05-26 21:17 | NUR ---
ms/rn notes Patient complained of gen. pain and being anxious or stating his depressed, medicated with norco 1 tab and seroquel 1 tab as ordered. will cont. to monitor.
[2017-05-26] MEDS: ZOLPIDEM TARTRATE 5 MG TABLET PO PRN (22:42)
--- NOTE | 2017-05-26 22:45 | NUR ---
ms/rn notes patient medicated with ambien per request by patient fo insomnia. griselda cont. to monitor
[2017-05-27] MEDS: QUETIAPINE FUMARATE 25 MG TABLET PO PRN (02:08)
--- NOTE | 2017-05-27 02:09 | NUR ---
ms/rn notes patient medicated with seroquel 1 tab per request by patient ; griselda cont. to monitor
[2017-05-27] MEDS: HYDROCODONE/APAP 5/325MG 1 EACH TABLET PO PRN ×3 (05:34→21:21)
--- NOTE | 2017-05-27 05:36 | NUR ---
ms/rn notes Patient complained of gen. pain ' medicated with norco 1 tab as ordered. will cont. to monitor.
--- NOTE | 2017-05-27 06:37 | NUR ---
MS/RN CLOSING NOTES: PT AWAKE, A/O X4, DENIES ANY SOB, JUST RECEIVED PAIN MEDICATION NOT TOO LONG AGO, COLOSTOMY IN PLACE, REMAINS WITH WU CATHETET WITH ADEQUATE URINE OUTPUT. VS REMAINS STABLE, NEEDS ATTENDED, ALL SAFETY PRECAUTIONS RENDERED, CALL LIGHT ION REACH, WILL ENDORSE ACCORDINGLY FOR CONTINUITY OF CARE.
--- NOTE | 2017-05-27 07:26 | NUR ---
RN OPEN NOTES RECEIVED REPORT FROM FIELD ARTILLERY OFFICER NURSE. WILL CONTINUE TO MONITOR AND ASSESS PATIENT.
[2017-05-27 07:41] LABS: CALCIUM, SERUM 8.2 mg/dL (8.5-10.1); CREATININE 0.7 mg/dL (0.6-1.3); POTASSIUM 3.8 mmol/L (3.5-5.1)
[2017-05-27 08:00] VITALS: BP 116/70
[2017-05-27] MEDS: BACLOFEN (10 MG) 10 MG TABLET PO SCH ×3 (08:51→17:24)
[2017-05-27] MEDS: ASPIRIN 81 MG TAB.CHEW PO SCH (08:51)
[2017-05-27] MEDS: PANTOPRAZOLE 40 MG TABLET.DR PO SCH (08:51)
[2017-05-27] MEDS: MULTIVIT, IRON, MIN NO. 8, FA 1 TAB PO SCH (08:51)
[2017-05-27] MEDS: TOPIRAMATE 25 MG TABLET PO SCH ×2 (08:51→17:24)
[2017-05-27] MEDS: LACTOBACILLUS RHAMNOSUS GG 1 EACH CAP.SPRINK PO SCH ×2 (08:52→17:24)
[2017-05-27] MEDS: GENTAMICIN 0.1% OINT 15 GM TUBE TP SCH ×2 (08:52→17:24)
[2017-05-27] MEDS: QUETIAPINE FUMARATE 25 MG TABLET PO SCH ×3 (08:52→16:40)
[2017-05-27] MEDS: HYDROGEL DRESSING 90 GM TUBE TP SCH (09:00)
--- NOTE | 2017-05-27 09:00 | NUR ---
HYDROGEL NOT AT BEDSIDE. PHARMACY NOTIFIED
--- NOTE | 2017-05-27 09:17 | NUR ---
DR RASCON IS AT BEDSIDE
--- NOTE | 2017-05-27 12:10 | NUR ---
PATIENT IV SITE IS LEAKING. DCs OLD IV SITE AND STARTED A NEW IV 22G ON THE LEFT WRIST. PATIENT TOLERATED PROCEDURE WELL
[2017-05-27] MEDS: D5W IV SCH (12:36)
[2017-05-27] MEDS: GENTAMICIN IV SCH (12:36)
[2017-05-27 16:00] VITALS: BP 120/59
[2017-05-27] MEDS: ACETAMINOPHEN 325 MG TABLET PO PRN (17:54)
--- NOTE | 2017-05-27 18:29 | NUR ---
RN CLOSING NOTES PATIENT IS IN BED, ALERT AND ORIENTED TO NAME, PLACE AND TIME. NO SIGNS AND SYMPTOMS OF DISTRESS OR PAIN. PATIENT KEPT DRY AND CLEAN. PATIENT TURNED Q2HR TO PREVENT PRESSURE ULCER. PATIENT CHANGED HIS COLOSTOMY BAG. DRESSING CHANGED PER HOSPITAL PROTOCOL AND WOUND CARE INSTRUCTION. PATIENT'S WU IS DRAINING CLEAR AND YELLOW URINE. BED IN LOW POSITION, LOCKED AND TWO SIDE RAILS ARE UP. IV SITE IS INTACT AND PATENT (NEW SITE STARTED, OLD IV SITE WAS LEAKING). POSSIBLE DISCHARGE IN AM. WILL ENDORSE TO CHILDCARE DIRECTOR NURSE.
--- NOTE | 2017-05-27 19:00 | NUR ---
MS RN NOTES RECEIVE PT RESTING IN BED, A/OX 4. NO S/S OF DISTRESS OR SOB. SAFETY MEASURES IN PLACE, ON LOW BED TO ENSURE SAFETY. CALL LIGHT WITHIN REACH. WILL CONTINUE TO MONITOR.
[2017-05-27] MEDS: LORAZEPAM INJ 2 MG/ML VIAL IV PRN ×2 (19:14→23:53)
[2017-05-27 20:00] VITALS: BP 144/79
[2017-05-27] MEDS: ZOLPIDEM TARTRATE 5 MG TABLET PO PRN (21:22)
[2017-05-28 06:34] LABS: CALCIUM, SERUM 8.2 mg/dL (8.5-10.1); CREATININE 0.7 mg/dL (0.6-1.3); POTASSIUM 3.6 mmol/L (3.5-5.1)
[2017-05-28 06:41] LABS: BASOPHILS # (AUTO) 0.1 /CMM (0.0-0.2); BASOPHILS % (AUTO) 0.4 % (0.0-2.0); EOSINOPHILS # (AUTO) 0.4 /CMM (0.0-0.7); EOSINOPHILS % (AUTO) 2.9 % (0.0-6.0); HEMATOCRIT 39 % (39-51); HEMOGLOBIN 12.9 g/dL (13.5-17.5); LYMPHOCYTES # (AUTO) 1.8 /CMM (0.8-4.8); LYMPHOCYTES % (AUTO) 13.6 % (20.0-44.0); MEAN CORPUSCULAR HEMOGLOBIN 26 PG (26.0-33.0); MEAN CORPUSCULAR HGB CONC 33 g/dl (31.0-36.0); MEAN CORPUSCULAR VOLUME 79 fL (80-96); MONOCYTES % (AUTO) 7.9 % (2.0-12.0); NEUTROPHILS # (AUTO) 9.9 /CMM (1.8-8.9); NEUTROPHILS % (AUTO) 75.2 % (43.0-81.0); PLATELET COUNT (AUTO) 387 /CMM (150-450); RED BLOOD CELL COUNT(AUTO) 4.98 MIL/uL (4.5-6.0); WHITE BLOOD COUNT (AUTO) 13.2 K/uL (4.3-11.0)
--- NOTE | 2017-05-28 06:46 | NUR ---
MS RN CLOSING NOTES PATIENT COMFORTABLY ASLEEP AND EASILY AWAKEN, HEAD OF BED ELEVATED. IV SITE TO L WRIST 22G PATENT AND INTACT WITH NO S/S OF INFILTRATION NOTED. APPEARS NOT IN DISTRESS. PATIENT WAS EDUCATED TO REPORT PAIN, NEED FURTHER INSTRUCTIONS. PATIENT NO COMPLAIN AT THIS TIME. RESPIRATIONS EVEN AND UNLABORED, FREQUENT VISUAL CHECK DONE FOR SAFETY EVERY 2 HOURS. PATIENT ASSISTED REPOSITIONED EVERY 2 HOURS FOR SKIN MGT. NURSING CARE RENDERED, NEEDS ATTENDED AND ANTICIPATED, KEPT CLEAN AND DRY AND COMFORTABLE, GOOD SKIN CARE PROVIDED. OFFLOAD AT ALL TIMES. SAFE HAZARD FREE ENVIRONMENT PROVIDED. CALL LIGHT WITHIN EASY TO REACH, ON LOW BED AT ALL TIMES TO ENSURE SAFETY, WILL ENDORSE TO THE NEXT SHIFT CONTINUE PLAN OF CARE
--- NOTE | 2017-05-28 07:10 | NUR ---
RN OPEN NOTES RECEIVED REPORT FROM FOUNTAIN CLERK NURSE. PATIENT IS IN BED WITH HIS EYES CLOSED, EASILY AROUSE TO CALLING HIS NAME AND LIGHT TOUCH. NO SIGNS AND SYMPTOMS OF DISTRESS. WILL CONTINUE TO MONITOR AND ASSESS PATIENT THROUGHOUT MY SHIFT
[2017-05-28 08:00] VITALS: BP 120/74
[2017-05-28] MEDS: ASPIRIN 81 MG TAB.CHEW PO SCH (08:20)
[2017-05-28] MEDS: LACTOBACILLUS RHAMNOSUS GG 1 EACH CAP.SPRINK PO SCH ×2 (08:20→16:50)
[2017-05-28] MEDS: TOPIRAMATE 25 MG TABLET PO SCH ×2 (08:20→16:50)
[2017-05-28] MEDS: QUETIAPINE FUMARATE 25 MG TABLET PO SCH ×3 (08:20→16:50)
[2017-05-28] MEDS: BACLOFEN (10 MG) 10 MG TABLET PO SCH ×3 (08:20→16:50)
[2017-05-28] MEDS: PANTOPRAZOLE 40 MG TABLET.DR PO SCH (08:20)
[2017-05-28] MEDS: MULTIVIT, IRON, MIN NO. 8, FA 1 TAB PO SCH (08:21)
[2017-05-28] MEDS: GENTAMICIN 0.1% OINT 15 GM TUBE TP SCH ×2 (08:22→16:50)
[2017-05-28] MEDS: HYDROGEL DRESSING 90 GM TUBE TP SCH (08:23)
[2017-05-28] MEDS: LORAZEPAM INJ 2 MG/ML VIAL IV PRN ×3 (08:37→22:10)
[2017-05-28] MEDS: D5W IV SCH (12:39)
[2017-05-28] MEDS: GENTAMICIN IV SCH (12:39)
[2017-05-28 16:00] VITALS: BP 129/87
--- NOTE | 2017-05-28 16:15 | NUR ---
spoke with patient, stated he has no place to go home as his friend is currently in [facility] and his mother is in the hospital ICU intubated and very sick. He plan to contact other friend that can offer him a place to stay and at the same time, he cannot leave without his wheelchair. Per patient it was left at home when he was taken by EMS, he has no danielle to his mother's home. Contacted sister Shantelle [phone] and stated she has no access to their mother home but she will contact other family member who can retrieve patient wheelchair and bring it to hospital. Addendum: 05/28/17 at 2050 by LIZA WARD RN Amended: Links added.
--- NOTE | 2017-05-28 17:45 | NUR ---
discussed with patient his dc plan, stated he want to be discharge but his sister or family has to bring his wheelchair , left message to patient sister Shantelle [phone], sister Destiny [phone] phone is not active. Addendum: 05/28/17 at 2054 by LIZA WARD RN Amended: Links added.
--- NOTE | 2017-05-28 18:42 | NUR ---
RN CLOSING NOTES PATIENT IS IN BED, ALERT AND ORIENTED TO NAME, PLACE AND TIME. NO SIGNS AND SYMPTOMS OF DISTRESS OR PAIN. PATIENT KEPT DRY AND CLEAN. PATIENT TURNED Q2HR TO PREVENT PRESSURE ULCER. PATIENT CHANGED HIS COLOSTOMY BAG. DRESSING CHANGED PER HOSPITAL PROTOCOL AND WOUND CARE INSTRUCTION. PATIENT'S WU IS DRAINING CLEAR AND YELLOW URINE. BED IN LOW POSITION, LOCKED AND TWO SIDE RAILS ARE UP. IV SITE IS INTACT AND PATENT. POSSIBLE DISCHARGE TONIGHT OR IN AM, WAITING FOR PATIENT WHEELCHAIR. WILL ENDORSE TO FLATBED OWNER OPERATOR NURSE.
--- NOTE | 2017-05-28 19:49 | NUR ---
ms/rn opening notes patient aweake, alert x3, able to verbalize needs, assisted to keep comfortable. Observe able to do adl and independent to care w/ supervision. will continue care and informed plan of care, will monitor and calllights within reach.
[2017-05-28 20:00] VITALS: BP 133/78
--- NOTE | 2017-05-28 21:59 | NUR ---
ms/rn notes patient reported anxiety and wants to calm down, pulse rate at 110-115, comfort measures provide, release by communicating the need to change and improve self per patient. will monitor and provide ativan .
--- NOTE | 2017-05-29 02:02 | NUR ---
ms/rn note endorse to Rn for continuity of care.
--- NOTE | 2017-05-29 02:05 | NUR ---
RN NOTES RECEIVED PATIENT RESTING IN BED. A/O X4. NO SIGNS OF DISTRESS OR DISCOMFORT. BREATHING EVEN AND UNLABORED. F/C INTACT WITH YELLOW FLUID NOTED. COLOSTOMY ON L ABD IN PLACE. IV ACCESS TO L WRIST PATENT AND INTACT, NO SIGNS OF REDNESS OR INFILTRATION. BED IN LOW LOCKED POSITION WITH SIDE RAILS X2. CALL LIGHT WITHIN REACH. WILL CONTINUE TO MONITOR.
[2017-05-29] MEDS: LORAZEPAM INJ 2 MG/ML VIAL IV PRN ×3 (02:49→14:28)
--- NOTE | 2017-05-29 02:49 | NUR ---
RN NOTES ADMINISTERED ATIVAN 1MG ORDERED AT PATIENT REQUEST FOR ANXIETY. VSS. WILL CONTINUE TO MONITOR.
[2017-05-29] MEDS: ACETAMINOPHEN 325 MG TABLET PO PRN (04:32)
--- NOTE | 2017-05-29 06:58 | NUR ---
RN CLOSING NOTES PATIENT AWAKE IN BED. A/O X4. NO SIGNS OF DISTRESS OR DISCOMFORT. BREATHING EVEN AND UNLABORED. F/C INTACT WITH YELLOW FLUID NOTED. COLOSTOMY ON L ABD IN PLACE. IV ACCESS TO L WRIST PATENT AND INTACT, NO SIGNS OF REDNESS OR INFILTRATION. ALL NEEDS MET. NO SIGNIFICANT CHANGES THROUGH THE NIGHT. REPOSITIONED Q2H AND PRN. BED IN LOW LOCKED POSITION WITH SIDE RAILS X2. CALL LIGHT WITHIN REACH. WILL ENDORSE TO AM SHIFT FOR GATITO. .
--- NOTE | 2017-05-29 07:20 | NUR ---
RN NOTES PT IS IN BED, SLEEPING COMFORTABLY. PT ON RA, NO SOB OR DISTRESS NOTED. IV ON L WRIST INTACT AND PATENT. WU CATHETER INTACT AND DRAINING, COLOSTOMY BAG IN PLACE. SAFETY MEASURES ARE IN PLACE, CALL LIGHT IS IN REACH. WILL CONTINUE TO MONITOR.
[2017-05-29 07:29] LABS: CALCIUM, SERUM 8.5 mg/dL (8.5-10.1); CREATININE 0.8 mg/dL (0.6-1.3); POTASSIUM 3.6 mmol/L (3.5-5.1)
[2017-05-29 08:00] VITALS: BP 115/70
[2017-05-29] MEDS: LACTOBACILLUS RHAMNOSUS GG 1 EACH CAP.SPRINK PO SCH ×2 (08:06→16:23)
[2017-05-29] MEDS: TOPIRAMATE 25 MG TABLET PO SCH ×2 (08:06→16:23)
[2017-05-29] MEDS: ASPIRIN 81 MG TAB.CHEW PO SCH (08:06)
[2017-05-29] MEDS: MULTIVIT, IRON, MIN NO. 8, FA 1 TAB PO SCH (08:06)
[2017-05-29] MEDS: PANTOPRAZOLE 40 MG TABLET.DR PO SCH (08:06)
[2017-05-29] MEDS: BACLOFEN (10 MG) 10 MG TABLET PO SCH ×3 (08:06→16:24)
[2017-05-29] MEDS: QUETIAPINE FUMARATE 25 MG TABLET PO SCH ×3 (08:06→16:23)
[2017-05-29] MEDS: GENTAMICIN 0.1% OINT 15 GM TUBE TP SCH ×2 (08:07→16:24)
[2017-05-29] MEDS: HYDROGEL DRESSING 90 GM TUBE TP SCH (08:08)
[2017-05-29 16:00] VITALS: BP 123/77
--- NOTE | 2017-05-29 18:36 | NUR ---
RN NOTES PT IS SITTING UP IN BED, AWAKE AND ALERT. PT ON RA, NO SOB AND RESPIRATIONS EVEN AND UNLABORED. IV ON LEFT WRIST INTACT AND PATENT. COLOSTOMY IN PLACE AND CHANGED TODAY. WU CATHETER INTACT AND DRAINING, CHANGED TODAY. ALL MEDS WERE GIVEN ORDERED. SKIN CARE AND WOUND CARE WAS PROVIDED. PT WAITING TO BE DISCHARGED. SAFETY MEASURES ARE IN PLACE, CALL LIGHT IS IN REACH. WILL ENDORSE TO ANIMAL BREEDER NURSE FOR GATITO. Addendum: 05/29/17 at 1903 by TAURUS LEUNG RN PT REFUSED TO HAVE WOUND PICTURES TAKEN PRIOR TO DISCHARGE BECAUSE DRESSING CHANGE ALREADY DONE EARLIER.
--- NOTE | 2017-05-29 19:30 | NUR ---
MS RN OPENING NOTES: PATIENT IN BED, AOX4, ON ROOM AIR, BREATHING EVEN AND UNLABORED. APPEARS UPSET AND AGITATED, TALKING OVER HIS CELLPHONE. PATIENT SUPPOSED TO BE DISCHARGED, HOWEVER, NO FAMILY MEMBER IS AVAILABLE TO PICK HIM UP. NO IV ACCESS AT THIS TIME. PROVIDED FOR COMFORT AND SAFETY. BED IN LOWEST AND LOCKED POSITION, SIDERAILS UP X3. WILL CONT TO MONITOR.
[2017-05-29 20:00] VITALS: BP 110/74
--- NOTE | 2017-05-29 20:18 | NUR ---
RN NOTES: PATIENT ALREADY PACKING HIS THINGS, SAYING HE WANTS TO GO HOME, DISCHARGE ORDER TO HOME ALREADY PLACED, HOWEVER, NO FAMILY IS AVAILABLE TO TAKE HIM HOME. CALLED FADY, SISTER ), NO ANSWER, LEFT MESSAGE.
--- NOTE | 2017-05-29 21:00 | NUR ---
RN NOTES: PATIENT IS COMBATIVE, AND UNCOOPERATIVE WITH STAFF, THROWING HIS WATER ON THE FLOOR. PATIENT UPSET BECAUSE HE WANTS TO LEAVE, BUT IT WAS EXPLAINED TO HIM THAT HE CANNOT BE DISCHARGED IF IT CANNOT BE DONE SAFELY/ IF HE IS UNACCOMPANIED. PATIENT IS ASKING FOR TAXI VOUCHER, RETOUCHER PHOTOENGRAVING INFORMED. EDUCATED PATIENT REGARDING SAFETY, PATIENT STILL UNCOOPERATIVE. PATIENT STATED: "I WANT TO LEAVE AND GO DRINK WITH MY FRIENDS, THEN SHOOT PEOPLE AND BRING MORE PEOPLE HERE." CHARGE NURSE WITH PATIENT AT THIS TIME AND HEARD STATEMENT WELL.
--- NOTE | 2017-05-29 21:30 | NUR ---
RN NOTES: PATIENT VERY AGITATED, THROWING HIS THINGS AND WATER AROUND. CALLED SECURITY, INFORMED CHARGE NURSE. PATIENT YELLING IN OBSCENE LANGUAGE, SAYING "GET AWAY FROM MY FACE. THIS IS PAYBACK." TRIED TO EXPLAIN TO PATIENT THAT HE CANNOT BE SAFELY DISCHARGED WITHOUT A FAMILY MEMBER. PATIENT STILL VERY AGITATED.
--- NOTE | 2017-05-29 21:45 | NUR ---
RN NOTES: SECURITY, TU, IN PATIENT'S ROOM. NURSING SALES ADMINISTRATION SPECIALIST AND CHARGE NURSE ALSO TALKING TO PATIENT.
--- NOTE | 2017-05-29 21:50 | NUR ---
RN NOTES: PATIENT WANTED TAXI VOUCHER AND AFTER SPEAKING WITH THE NSG MANAGER [place]ION, TAXI VOUCHER WAS GIVEN, BUT PATIENT WAS INITIALLY REFUSING TO GIVE ANY ADDRESS. TU FROM SECURITY STAYED WITH PATIENT AND FINALLY GOT AN ADDRESS FROM PATIENT. ADDRESS GIVEN TO CHARGE NURSE.
--- NOTE | 2017-05-29 22:51 | NUR ---
RN NOTES: INFORMED DR COELLO THAT PATIENT WAS UNABLE TO BE DISCHARGED TONIGHT, NO ONE WAS AVAILABLE TO PICK HIM UP/ NO SAFE TRANSPORTATION AVAILABLE AT THIS TIME.
--- NOTE | 2017-05-29 23:00 | NUR ---
RN NOTES: PATIENT FINALLY CALMED MOMENTARILY, SAID SORRY TO NURSE AND TO SECURITY, AND AGREED TO STAY HERE FOR ANOTHER NIGHT.
[2017-05-30] MEDS: ZOLPIDEM TARTRATE 5 MG TABLET PO PRN (01:00)
[2017-05-30] MEDS: LORAZEPAM INJ 2 MG/ML VIAL IV PRN ×2 (01:20→06:55)
--- NOTE | 2017-05-30 01:24 | NUR ---
RN NOTES: PATIENT IS VERY AGITATED, SAYING THAT HE IS ANGRY WITH HIS SISTERS, AND IS REQUESTING FOR SOMETHING TO HELP HIM "MELLOW DOWN". PATIENT REFUSED AMBIEN WHICH HE PREVIOUSLY ASKED FOR. NEW IV LINE LEFT WRIST G 22 INSERTED. ADMINISTERED ATIVAN 1 MG IV PRN AT THIS TIME. WILL CONT TO MONITOR.
--- NOTE | 2017-05-30 01:40 | NUR ---
RN NOTES: PATIENT APPEARS MORE CALM NOW AND IS ASKING FOR CLEAN LINEN AND FOOD.
--- NOTE | 2017-05-30 05:58 | NUR ---
RN NOTES: ASKED PATIENT IF WOUND TREATMENT CAN BE DONE NOW, PATIENT REFUSED. PATIENT APPEARS EASILY IRRITATED, STILL WITH LABILE MOOD, AND IS ASKING FOR MEDICATION TO "CALM" HIM DOWN.
--- NOTE | 2017-05-30 06:57 | NUR ---
RN NOTES: PATIENT APPEARS AGITATED, REQUESTED FOR MEDICATION TO HELP CALM HIM DOWN. ADMINISTERED ATIVAN 1 MG IV PRN. PATIENT ALSO REFUSED BLOOD DRAW.
--- NOTE | 2017-05-30 07:10 | NUR ---
RN NOTES PT IS IN BED, RESTING, NO SIGNS OF DISTRESS NOTED. PT ON RA, RESPIRATIONS ARE EVEN AND UNLABORED. IV ON L WRIST INTACT AND PATENT. SAFETY MEASURES ARE IN PLACE, CALL LIGHT IS IN REACH. WILL CONTINUE TO MONITOR.
--- NOTE | 2017-05-30 07:30 | NUR ---
RN CLOSING NOTES: PATIENT IN BED, AOX3, APPEARS CALMER NOW. PIV OVER LEFT WRIST G22 INTACT AND PATENT TO FLUSH. PROVIDED FOR COMFORT AND SAFETY. BED IN LOWEST AND LOCKED POSITION. SIDERAILS UPX3. ENDORSED TO AM RN FOR GATITO.
[2017-05-30 08:00] VITALS: BP 107/64
[2017-05-30] MEDS: LACTOBACILLUS RHAMNOSUS GG 1 EACH CAP.SPRINK PO SCH (08:47)
[2017-05-30] MEDS: TOPIRAMATE 25 MG TABLET PO SCH (08:47)
[2017-05-30] MEDS: MULTIVIT, IRON, MIN NO. 8, FA 1 TAB PO SCH (08:47)
[2017-05-30] MEDS: PANTOPRAZOLE 40 MG TABLET.DR PO SCH (08:48)
[2017-05-30] MEDS: QUETIAPINE FUMARATE 25 MG TABLET PO SCH ×2 (08:48→12:58)
[2017-05-30] MEDS: ASPIRIN 81 MG TAB.CHEW PO SCH (08:48)
[2017-05-30] MEDS: BACLOFEN (10 MG) 10 MG TABLET PO SCH ×2 (08:48→12:58)
[2017-05-30] MEDS: GENTAMICIN 0.1% OINT 15 GM TUBE TP SCH (08:49)
[2017-05-30] MEDS: HYDROGEL DRESSING 90 GM TUBE TP SCH (08:49)
[2017-05-30] MEDS: HYDROCODONE/APAP 5/325MG 1 EACH TABLET PO PRN (09:41)
[2017-05-30 11:39] LABS: CALCIUM, SERUM 8.9 mg/dL (8.5-10.1); CREATININE 0.8 mg/dL (0.6-1.3); POTASSIUM 3.6 mmol/L (3.5-5.1)
--- NOTE | 2017-05-30 13:30 | NUR ---
RN NOTES PT WAS DISCHARGED WITH TAXI VOUCHER IN STABLE CONDITION. BELONGINGS LIST AND DISCHARGE PAPERS WERE SIGNED. PT REFUSED TO HAVE WOUND PICTURES TAKEN. IV AND ID BAND WERE REMOVED. ALL MEDS WERE GIVEN ORDERED AND WOUND CARE DONE.
[2017-05-30] MEDS ORDERED: AMIKACIN 250 MG/ML VIAL ONE (22:07)
== END 2017-05-30 13:25 | disposition home or self-care (01) | DRG 720 ==
LOC: ER 12:53 → MED 18:41
PROVIDERS: ADMIT Internal Medicine; ATTEND Internal Medicine
PROC: 0JB70ZZ Excision of Back Subcutaneous Tissue and Fascia, Open Approach (ICD-10-PCS; principal; 2017-05-22)
DX: A41.9 Sepsis, unspecified organism (principal); G93.41 Metabolic encephalopathy; L89.134 Pressure ulcer of right lower back, stage 4; E87.2 Acidosis; R53.2 Functional quadriplegia; D68.59 Other primary thrombophilia; L89.893 Pressure ulcer of other site, stage 3; K94.09 Other complications of colostomy; E83.42 Hypomagnesemia; E83.51 Hypocalcemia; N31.9 Neuromuscular dysfunction of bladder, unspecified; F25.0 Schizoaffective disorder, bipolar type; D50.9 Iron deficiency anemia, unspecified; F17.210 Nicotine dependence, cigarettes, uncomplicated; R65.20 Severe sepsis without septic shock; E66.9 Obesity, unspecified; N39.0 Urinary tract infection, site not specified; Z87.11 Personal history of peptic ulcer disease; Z87.440 Personal history of urinary (tract) infections; Z59.0 Homelessness; E78.5 Hyperlipidemia, unspecified; F10.20 Alcohol dependence, uncomplicated; Z74.01 Bed confinement status; W34.00XS Accidental discharge from unspecified firearms or gun, sequela; Z16.24 Resistance to multiple antibiotics; R19.5 Other fecal abnormalities; L89.891 Pressure ulcer of other site, stage 1; F19.90 Other psychoactive substance use, unspecified, uncomplicated; Y83.9 Surgical procedure, unspecified as the cause of abnormal reaction of the patient, or of later complication, without mention of misadventure at the time of the procedure; Y82.8 Other medical devices associated with adverse incidents; Y92.009 Unspecified place in unspecified non-institutional (private) residence as the place of occurrence of the external cause; K43.5 Parastomal hernia without obstruction or gangrene; Z68.35 Body mass index [BMI] 35.0-35.9, adult; S91.104A Unspecified open wound of right lesser toe(s) without damage to nail, initial encounter; S91.301A Unspecified open wound, right foot, initial encounter; S91.002A Unspecified open wound, left ankle, initial encounter; X58.XXXA Exposure to other specified factors, initial encounter; Y93.9 Activity, unspecified; L89.521 Pressure ulcer of left ankle, stage 1; L53.8 Other specified erythematous conditions; M24.571 Contracture, right ankle; M24.572 Contracture, left ankle; S81.802A Unspecified open wound, left lower leg, initial encounter; B96.1 Klebsiella pneumoniae [K. pneumoniae] as the cause of diseases classified elsewhere; G89.29 Other chronic pain; Z79.899 Other long term (current) drug therapy; L97.419 Non-pressure chronic ulcer of right heel and midfoot with unspecified severity; L97.529 Non-pressure chronic ulcer of other part of left foot with unspecified severity; L97.519 Non-pressure chronic ulcer of other part of right foot with unspecified severity
CPT/HCPCS: 36415; 80048-TC; 80061-TC; 80076-TC; 80170-TC; 80305; 81000-TC; 83605-TC; 83735-TC; 84100-TC; 85025-TC; 87040-TC; 87081-TC; 87086-TC; 87186-TC; A4217; A4606; A6248; A6253; A6402; A6403; G0480; J0278; J1580; J2060; J2543; J3475; J3490; J7030; J7050; J7060; Z7610

== ENCOUNTER 2017-05-30 19:40 | Inpatient (IN) | payer MEDICAID ==
[~2017-05-30] VITALS: Ht 170.2 cm; Wt 126.2 kg
[~2017-05-30 19:40] MED LIST changes: -AMOX875T2 PO
--- NOTE | 2017-05-30 19:47 | NUR ---
PT BIBRA FROM HOME TO ER BED 14. PT IS COOPERATIVE STATING "IM NOT FEELING GOOD." DENIES PAIN. STABLE VITALS PROJECT ARCHITECT. PT SEEN IN ER MULTIPLE TIMES FOR DRUG USE. PLACED ON MONITOR. AWAITING MD ALCALA.
--- NOTE | 2017-05-30 20:04 | NUR ---
DR COOLEY AT BEDSIDE FOR EVAL.
--- NOTE | 2017-05-30 20:29 | NUR ---
IVHL STARTED, LABS DRAWN W/ BLOOD CULTURES & SENT TO LAB.
[2017-05-30 20:54] LABS: ALBUMIN 3.9 g/dL (3.4-5.0); BILIRUBIN,DIRECT 0.1 mg/dL (0.0-0.2); BILIRUBIN,TOTAL 0.2 mg/dL (0.2-1.0); CALCIUM, SERUM 9.3 mg/dL (8.5-10.1); CREATININE 0.8 mg/dL (0.6-1.3); TOTAL PROTEIN, SERUM 9.6 g/dL (6.4-8.2)
[2017-05-30 20:59] LABS: BASOPHILS % (AUTO) 0.3 % (0.0-2.0); EOSINOPHILS % (AUTO) 0.2 % (0.0-6.0); HEMATOCRIT 43 % (39-51); HEMOGLOBIN 14.2 g/dL (13.5-17.5); INR 0.96 (0.87-1.13); LYMPHOCYTES # (AUTO) 1.5 /CMM (0.8-4.8); LYMPHOCYTES % (AUTO) 10.8 % (20.0-44.0); MEAN CORPUSCULAR HEMOGLOBIN 26 PG (26.0-33.0); MEAN CORPUSCULAR HGB CONC 33 g/dl (31.0-36.0); MEAN CORPUSCULAR VOLUME 79 fL (80-96); MONOCYTES # (AUTO) 0.6 /CMM (0.1-1.30); MONOCYTES % (AUTO) 4.3 % (2.0-12.0); NEUTROPHILS # (AUTO) 11.9 /CMM (1.8-8.9); NEUTROPHILS % (AUTO) 84.4 % (43.0-81.0); PLATELET COUNT (AUTO) 531 /CMM (150-450); PROTHROMBIN TIME 10.2 SECS (9.5-12.7); RDW COEFFICIENT OF VARIATION 25.8 (11.5-15.0); RED BLOOD CELL COUNT(AUTO) 5.49 MIL/uL (4.5-6.0); WHITE BLOOD COUNT (AUTO) 14.1 K/uL (4.3-11.0)
--- NOTE | 2017-05-30 21:00 | NUR ---
URINE OBTAINED & SENT TO LAB. PT MEDICATED ORDERED. BLOOD CULTURES DRAWN PRIOR TO IV ABX ADMINISTRATION.
[2017-05-30 21:31] LABS: APPEARANCE,URINE Clear (CLEAR); BILIRUBIN,URINE Negative (NEGATIVE); BLOOD, URINE Moderate Ery/uL (NEGATIVE); COLOR,URINE Yellow (YELLOW); KETONES,URINE Negative (NEGATIVE); LEUKOCYTE ESTERASE ,URINE Trace (NEGATIVE); NITRITE, URINE Negative (NEGATIVE); PROTEIN,URINE 30 mg/dl (NEGATIVE); UGLUCOSE Negative (NEGATIVE); UROBILINOGEN,URINE 0.2 EU/dL (0.2)
[2017-05-30 21:43] LABS: BACTERIA,URINE Many /HPF (None Seen); SQUAMOUS EPITHELIAL CELL,UR Few /HPF (None Seen)
--- NOTE | 2017-05-30 21:47 | NUR ---
CALLED [employer] RESTAURANT HOST/HOSTESS WAS PAGED.
--- NOTE | 2017-05-30 22:14 | NUR ---
REPORT GIVEN TO JULIO. PT AWAITING TRANSFER TO FLOOR.
--- NOTE | 2017-05-30 22:35 | NUR ---
MS RN INITIAL NOTES PT WAS BROUGHT UP BY ER VIA [id number], PARAPLEGIC. NO SIGNS OF SOB OR DISTRESS. BREATHING EVENLY AND UNLABORED ON ROOM AIR. PT IS GUARDED AND REFUSES FULL CARE AND FULLY BODY CHECK. IV ACCESS IS INTACT AND PATENT WITH FLUIDS RUNNING. BED IS IN LOW AND LOCKED POSITION, CALL LIGHT WITHIN REACH. WILL CONTINUE TO MONITOR
--- NOTE | 2017-05-31 00:15 | NUR ---
SECURITY HAD TO BE CALLED. PT WAS BEING VERBALLY ABUSIVE AND THREATENING STAFF.
[2017-05-31 01:05] VITALS: BP 144/74
--- NOTE | 2017-05-31 04:12 | NUR ---
PT REFUSES BOTTOM CHECK PT REFUSES TO LET US TAKE HIS CIGARETTES FROM HIM
[2017-05-31 06:34] LABS: BASOPHILS # (AUTO) 0.1 /CMM (0.0-0.2); BASOPHILS % (AUTO) 0.5 % (0.0-2.0); EOSINOPHILS # (AUTO) 0.1 /CMM (0.0-0.7); EOSINOPHILS % (AUTO) 0.5 % (0.0-6.0); HEMATOCRIT 40 % (39-51); LYMPHOCYTES # (AUTO) 1.6 /CMM (0.8-4.8); LYMPHOCYTES % (AUTO) 13.9 % (20.0-44.0); MEAN CORPUSCULAR HEMOGLOBIN 26 PG (26.0-33.0); MEAN CORPUSCULAR HGB CONC 33 g/dl (31.0-36.0); MEAN CORPUSCULAR VOLUME 79 fL (80-96); MONOCYTES # (AUTO) 0.7 /CMM (0.1-1.30); MONOCYTES % (AUTO) 5.9 % (2.0-12.0); NEUTROPHILS # (AUTO) 8.9 /CMM (1.8-8.9); NEUTROPHILS % (AUTO) 79.2 % (43.0-81.0); PLATELET COUNT (AUTO) 542 /CMM (150-450); RDW COEFFICIENT OF VARIATION 25.8 (11.5-15.0); RED BLOOD CELL COUNT(AUTO) 5.01 MIL/uL (4.5-6.0); WHITE BLOOD COUNT (AUTO) 11.3 K/uL (4.3-11.0)
[2017-05-31 06:39] LABS: INR 0.99 (0.87-1.13); PROTHROMBIN TIME 10.6 SECS (9.5-12.7)
[2017-05-31 06:51] LABS: ALBUMIN 3.3 g/dL (3.4-5.0); BILIRUBIN,TOTAL 0.3 mg/dL (0.2-1.0); CALCIUM, SERUM 8.1 mg/dL (8.5-10.1); CREATININE 0.8 mg/dL (0.6-1.3); POTASSIUM 3.7 mmol/L (3.5-5.1); TOTAL PROTEIN, SERUM 8.3 g/dL (6.4-8.2)
--- NOTE | 2017-05-31 06:52 | NUR ---
MS RN INITIAL NOTES PT IS IN BED RESTING. NO SIGNS OF SOB OR DISTRESS. PT CONTINUES TO REFUSE CARE. ALL NEEDS WERE ANTICIPATED AND MET. WILL ENDORSE TO DAY SHIFT
[2017-05-31 06:56] LABS: CREATINE KINASE MB 1.5 ng/mL (0-3.6)
--- NOTE | 2017-05-31 07:30 | NUR ---
RN NOTES Patient in bed awake, alert and oriented x 4. Patient stated " i got drunk last night ". NO acute distress, NO SOB noted. Denies pain at the moment. IV site intact and patent. Kept patient safe and comfortable. Bed in low position, locked, siderails up x2. Call light in reach. Will continue to monitor accordingly.
[2017-05-31 08:00] VITALS: BP_SYST 102; BP_SYST 132; BP_DIAS 64; BP_DIAS 83
--- NOTE | 2017-05-31 09:26 | NUR ---
WOUND CARE CONSULT: PT REFUSED SKIN ASSESSMENT AND SAID "GET OUT". RECOMMENDATIONS MADE BASED ON PREVIOUS ADMISSION PHOTOS. PT REFUSES PHOTOS OF TRUNK OF BODY. DEFER TO DP FOR LOWER EXTREMITIES. WILL SEE PT PT CONDITION PERMITS. [facility]. IN AGREEMENT WITH PLAN OF CARE. Addendum: 05/31/17 at 0939 by ROBERTO CARLOS WEBSTER WNDNU RECOMMEND SURGICAL FOLLOWUP.
--- NOTE | 2017-05-31 09:56 | NUR ---
RN NOTES Protonix change to Pepcid ok per Steve Valadez.
--- NOTE | 2017-05-31 10:00 | NUR ---
RN NOTES PATIENT AGITATED, TALKING ON THE PHONE. HE REFUSED MEDICATIONS SAYING " I'LL TAKE IT IN THE AFTERNOON!". PATIENT ALSO REFUSED TO TAKE PICTURES ON HIS WOUND. WILL CONTINUE TO MONITOR ACCORDINGLY.
[2017-05-31 16:00] VITALS: BP 127/77
[2017-05-31 16:08] VITALS: BP 127/77
--- NOTE | 2017-05-31 19:30 | NUR ---
RN CLOSING NOTES PATIENT IN BED RESTING. NO ACUTE DISTRESS, NO SOB NOTED. PATIENT REFUSED WOUND CARE, STATED "DO IT LATER TONIGHT". ALL NEEDS ATTENDED AND PROVIDED. BED IN LOW POSITION, LOCKED, SIDERAILS UP X2. CALL LIGHT IN REACH. ENDORSED TO ACCOUNTS ADMINISTRATOR RN FOR GATITO.
--- NOTE | 2017-05-31 19:35 | NUR ---
RN OPENING NOTES RECEIVED REPORT FROM DANY RNELDER. FOUND Pt AWAKE, RESTING IN BED. NO S/S OF ACUTE DISTRESS OR SOB NOTED. Pt IS A/OX3, VERBAL, ABLE TO MAKE NEEDS KNOWN. NO C/O PAIN AT THIS TIME. IV ACCESS ON RAC #18G, SL. SAFETY MEASURES IN PLACE. BED LOW, LOCKED, HOB ELEVATED, SIDE RAILS UP, CALL LIGHT AND BEDSIDE TABLE WITHIN REACH. WILL CONTINUE TO MONITOR Pt THROUGHOUT THE NIGHT FOR SAFETY.
[2017-05-31 20:00] VITALS: BP 147/87
--- NOTE | 2017-05-31 20:00 | NUR ---
RN NOTES Pt IS STILL REFUSING PICTURES TO BE TAKEN OF HIS BUTTOCKS/SACRAL WOUND. Pt IS ALSO REFUSING FOR THE RN TO DO THE DRESSING CHANGE AND WOUND CARE FOR HIS STAGE 4 WOUND ON HIS BUTTOCKS/SACRAL AREA.
[2017-05-31 22:00] VITALS: BP 147/87
--- NOTE | 2017-06-01 01:05 | NUR ---
RN NOTES Pt REFUSED AMIKACIN TROUGH BLOOD DRAW. HAD STACKING MACHINE OPERATOR SPEAK WITH Pt TO CONVINCE Pt THAT THE BLOOD DRAW IS NECESSARY PART OF HIS CARE TO CONTINUE RECEIVING THE IV ANTIBIOTICS. Pt STILL REFUSED AND REQUESTED FOR THE BLOOD DRAW TO BE DONE LATER IN THE MORNING.
--- NOTE | 2017-06-01 06:00 | NUR ---
Pt REFUSED AMIKACIN BLOOD DRAW AND AM LABS AGAIN. Pt SAID TO COME BACK LATER IN THE DAY. LAB WILL TRY AGAIN LATER.
--- NOTE | 2017-06-01 06:35 | NUR ---
RN CLOSING NOTES NO SIGNIFICANT CHANGES IN Pt's CONDITION. Pt REMAINS STABLE. NO S/S OF ACUTE DISTRESS OR SOB NOTED DURING THE NIGHT. SAFETY MEASURES IN PLACE. WILL ENDORSE TO DAYSHIFT RN FOR Pt's GATITO.
--- NOTE | 2017-06-01 07:20 | NUR ---
RN NOTES RECEIVED PATIENT IN BED AWAKE, ALERT AND ORIENTED X 3, CALM. NO ACUTE DISTRESS, NO SOB NOTED. IV SITE INTACT AND PATENT. WU CATHETER IN PLACE. BED IN LOW POSITION, SIDERAILS UPX2. CALL LIGHT IN REACH. WILL CONTINUE TO MONITOR ACCORDINGLY.
[2017-06-01 08:00] VITALS: BP 137/79
[2017-06-01 16:00] VITALS: BP 125/77
[2017-06-01 16:15] VITALS: BP 125/77
--- NOTE | 2017-06-01 17:16 | NUR ---
RN NOTES PATIENT IS STILL REFUSING PICTURES TO BE TAKEN OF HIS BUTTOCKS/SACRAL WOUND. PATIENT IS ALSO REFUSING FOR THE RN TO DO THE DRESSING CHANGE AND WOUND CARE FOR HIS STAGE 4 WOUND ON HIS BUTTOCKS/SACRAL AREA. PATIENT ALSO BEEN REFUSING BLOOD DRAW.
--- NOTE | 2017-06-01 19:30 | NUR ---
RN NOTES NO SIGNIFICANT CHANGES ON PATIENT'S CONDITION. PATIENT REMAINED STABLE. NO ACUTE DISTRESS, NO SOB NOTED. SAFETY MEASURES IN PLACE. ENDORSED TO DIRECTOR MEDICAL SURGICAL RN FOR GATITO.
--- NOTE | 2017-06-01 19:58 | NUR ---
MS/RN OPENING NOTES PATIENT AWAKE, ALERTX2, HOB ELEVATED, ABLE TO VERBALIZE NEEDS NO PAIN OBSERVED AND REPORTED, HAVING SOME SNACKS . RESPIRATIONS EVEN AND UNLABORED, SKIN WARM TO TOUCH. RECEIVED ENDORSEMENT FROM AM RN REGARDING GATITO. CALL LIGHTS WITHIN REACH, WILL CONTINUE TO MONITOR.
[2017-06-01 20:00] VITALS: BP 142/85
--- NOTE | 2017-06-02 | NUR ---
ms/rn notes lab draw done for amikacin trough level will check result before administering iv antibiotic
--- NOTE | 2017-06-02 03:23 | NUR ---
ms/rn notes amikacin trough level pending result awaiting
--- NOTE | 2017-06-02 05:26 | NUR ---
ms/rn notes Amikacin trough level result received result less than 2.6 will administer iv antibiotic
--- NOTE | 2017-06-02 05:45 | NUR ---
ms/rn notes Patient reported to have a headache will give prn tylenol 650mg po and monitor effectiveness
--- NOTE | 2017-06-02 06:26 | NUR ---
317-2 ms/rn closing notes'patient in hob elevated, alert x4, able monroe verbalize needs, denies pain. Cooperative to care and had blood drawn for amikacin, awaiting for result to start iv antibiotic.Independent to and will forestue to monitor.
[2017-06-02 07:45] LABS: BASOPHILS # (AUTO) 0.1 /CMM (0.0-0.2); BASOPHILS % (AUTO) 0.6 % (0.0-2.0); EOSINOPHILS # (AUTO) 0.3 /CMM (0.0-0.7); EOSINOPHILS % (AUTO) 2.3 % (0.0-6.0); HEMATOCRIT 42 % (39-51); HEMOGLOBIN 13.7 g/dL (13.5-17.5); LYMPHOCYTES # (AUTO) 1.8 /CMM (0.8-4.8); LYMPHOCYTES % (AUTO) 13.3 % (20.0-44.0); MEAN CORPUSCULAR HEMOGLOBIN 26 PG (26.0-33.0); MEAN CORPUSCULAR HGB CONC 33 g/dl (31.0-36.0); MEAN CORPUSCULAR VOLUME 79 fL (80-96); MONOCYTES # (AUTO) 0.8 /CMM (0.1-1.30); MONOCYTES % (AUTO) 5.5 % (2.0-12.0); NEUTROPHILS # (AUTO) 10.7 /CMM (1.8-8.9); NEUTROPHILS % (AUTO) 78.3 % (43.0-81.0); PLATELET COUNT (AUTO) 543 /CMM (150-450); RDW COEFFICIENT OF VARIATION 25.1 (11.5-15.0); RED BLOOD CELL COUNT(AUTO) 5.31 MIL/uL (4.5-6.0); WHITE BLOOD COUNT (AUTO) 13.7 K/uL (4.3-11.0)
[2017-06-02 07:57] LABS: CALCIUM, SERUM 8.6 mg/dL (8.5-10.1); CREATININE 0.8 mg/dL (0.6-1.3); MAGNESIUM 2.3 mg/dL (1.8-2.4); POTASSIUM 3.6 mmol/L (3.5-5.1)
[2017-06-02 08:00] VITALS: BP 140/96
--- NOTE | 2017-06-02 08:00 | NUR ---
MS RN NOTES PATIENT RESTING IN BED, AWAKE, NO C/O PAIN, NO SOB, RESP EVEN & NON LABORED. HOB ELEVATED, WATCHING TV. PERIPHERAL IV ACCESS TO RAC, INTACT PATENT. BED IN LOW LOCKED POSITION. CALL LIGHT WITHIN REACH. CONTINUING TO MONITOR CLOSELY.
--- NOTE | 2017-06-02 12:00 | NUR ---
MS RN NOTES PATIENT RESTING IN BED, WATCHING TV. NO COMPLICATIONS NOTED. HAD C/O GENERALIZED BODY ACHE, PRN PAIN MED ADMINISTERED & WAS EFFECTIVE. CALL LIGHT WITHIN REACH. MONITORING CLOSELY.
[2017-06-02] MEDS ORDERED: LEVO500T15 PO (13:59)
[2017-06-02 16:00] VITALS: BP 119/68
--- NOTE | 2017-06-02 18:30 | NUR ---
MS RN NOTES PATIENT RESTING IN BED. WILL BE DISCHARGED TODAY PER MD ORDER. PATIENT MADE AWARE. ALL DISCHARGE & MEDICATIONS INSTRUCTIONS GIVEN TO THE PATIENT & VERBALIZED UNDERSTANDING. ALL BELONGINGS ACCOUNTED FOR & SIGNED BY THE PATIENT. WILL FOLLOW UP AGAIN THE PATIENT. CALL LIGHT WITHIN REACH.
--- NOTE | 2017-06-02 19:00 | NUR ---
MS RN NOTES PATIENT RESTING IN BED WITHOUT COMPLICATIONS. PRN PAIN MEDICINE WAS GIVEN ORDERED. NO SOB NOTED. PATIENT REFUSED TO HAVE THE WOUND ASSESSMENT DONE, REFUSED MEDICINE AT 1800 & REFUSED TO TAKE PICTURES BEFORE DISCHARGING. HE GOT AGITATED. GAVE HIM SPACE TO CALM DOWN WHICH HELPED. WILL BE DISCHARGED PER MD ORDERS. WAITING FOR HIS RIDE TO BE PICKED UP BY A FAMILY MEMBER. IN STABLE CONDITION. ALL BELONGINGS ACCOUNTED FOR & SIGNED BY THE PATIENT. ENDORSED TO FIRE CREW WORKER TO FOLLOW UP ON HIS DISCHARGE. BED IN LOW LOCKED POSITION. CALL LIGHT WITHIN REACH. WILL MONITOR CLOSELY.
--- NOTE | 2017-06-02 19:30 | NUR ---
RN NOTES RECEIVED PATIENT UP IN BED, AO X 3, ABLE TO MAKE NEEDS KNOWN. NO ACUTE DISTRESS NOTED. DENIES ANY PAIN AT THIS TIME. COLOSTOMY INTACT WITH BAG INTACT. WU CATHETER PATENT, INTACT; DRAINING CLEAR YELLOW URINE. PATIENT TRYING TO GET IN CONTACT WITH ANYONE THAT CAN PICK HIM UP. PATIENT AWARE THAT HE HAS BEEN DISCHARGED. ON LOW BED WITH BILATERAL UPPER SIDE RAILS UP. CALL LIGHT WITHIN EASY REACH. WILL CONTINUE TO MONITOR.
[2017-06-02 20:00] VITALS: BP 142/92
--- NOTE | 2017-06-02 21:00 | NUR ---
RN NOTES PATIENT REFUSES TO GO HOME. OCCUPATIONAL HEALTH NURSE MANAGER AND EVENTS SOLUTIONS CONSULTANT MADE AWARE.
--- NOTE | 2017-06-02 22:30 | NUR ---
RN NOTES PATIENT SPOKE WITH PLANER OFFBEARER. PATIENT WILLING TO BE DISCHARGED NOW. PATIENT ASSISTED IN PREPARING TO LEAVE.
--- NOTE | 2017-06-02 23:00 | NUR ---
RN NOTES PATIENT BROUGHT DOWN TO LOBBY VIA WHEELCHAIR FOR TAXI MAINTENANCE CUSTODIAN. PATIENT HAS DISCHARGE PAPERS; BELONGINGS PACKED AND GIVEN TO PATIENT.
--- NOTE | 2017-06-02 23:50 | NUR ---
RN NOTES PATIENT REFUSED TO GO INTO TRANSPORT VAN UNLESS HE IS DRIVEN TO A LIQUOR STORE. SUPERVISOR MAINTENANCE NOTIFIED. POLICE CAME TO STAY WITH PATIENT.
== END 2017-06-03 00:13 | disposition home or self-care (01) | DRG 720 ==
LOC: ER 19:41 → MED 22:19 → MEDSG2 06-02 13:38
PROVIDERS: ADMIT Internal Medicine; ATTEND Internal Medicine
DX: A41.9 Sepsis, unspecified organism (principal); G93.41 Metabolic encephalopathy; L89.154 Pressure ulcer of sacral region, stage 4; E87.2 Acidosis; R53.2 Functional quadriplegia; E44.0 Moderate protein-calorie malnutrition; J18.9 Pneumonia, unspecified organism; D68.59 Other primary thrombophilia; L89.893 Pressure ulcer of other site, stage 3; K94.09 Other complications of colostomy; R65.20 Severe sepsis without septic shock; N39.0 Urinary tract infection, site not specified; Z16.24 Resistance to multiple antibiotics; L03.116 Cellulitis of left lower limb; L03.115 Cellulitis of right lower limb; W34.00XS Accidental discharge from unspecified firearms or gun, sequela; D50.9 Iron deficiency anemia, unspecified; E78.5 Hyperlipidemia, unspecified; F10.20 Alcohol dependence, uncomplicated; F17.200 Nicotine dependence, unspecified, uncomplicated; G89.29 Other chronic pain; K43.5 Parastomal hernia without obstruction or gangrene; Z59.0 Homelessness; Z74.01 Bed confinement status; Z79.899 Other long term (current) drug therapy; Z87.11 Personal history of peptic ulcer disease; Z91.19 Patient's noncompliance with other medical treatment and regimen; Z79.82 Long term (current) use of aspirin; N31.9 Neuromuscular dysfunction of bladder, unspecified; G62.9 Polyneuropathy, unspecified; L89.521 Pressure ulcer of left ankle, stage 1; Y83.9 Surgical procedure, unspecified as the cause of abnormal reaction of the patient, or of later complication, without mention of misadventure at the time of the procedure; Y82.9 Unspecified medical devices associated with adverse incidents; Y92.009 Unspecified place in unspecified non-institutional (private) residence as the place of occurrence of the external cause; F19.90 Other psychoactive substance use, unspecified, uncomplicated
CPT/HCPCS: 36415; 80048-TC; 80053-TC; 80076-TC; 80150; 81000-TC; 82553-TC; 83605-TC; 83735-TC; 85025-TC; 85610-TC; 85730-TC; 87040-TC; 87081-TC; 87086-TC; 87186-TC; A4606; A6248; A6402; J0278; J1650; J2270; J2405; J2543; J3490; J7030; J7050; J7060; Z7610

== ENCOUNTER 2017-06-11 13:25 | Emergency (ER) | payer MEDICAID ==
[~2017-06-11] VITALS: Ht 182.9 cm; Wt 113.4 kg
[~2017-06-11 13:25] MED LIST changes: +LEVO500T15 PO
--- NOTE | 2017-06-11 14:10 | NUR ---
DR PÉREZ AT FOR LUISAL.
[2017-06-11 14:35] LABS: BASOPHILS # (AUTO) 0.5 /CMM (0.0-0.2); BASOPHILS % (AUTO) 2.8 % (0.0-2.0); EOSINOPHILS # (AUTO) 0.1 /CMM (0.0-0.7); EOSINOPHILS % (AUTO) 0.3 % (0.0-6.0); HEMATOCRIT 45 % (39-51); HEMOGLOBIN 14.5 g/dL (13.5-17.5); LYMPHOCYTES # (AUTO) 2.1 /CMM (0.8-4.8); LYMPHOCYTES % (AUTO) 12.2 % (20.0-44.0); MEAN CORPUSCULAR HEMOGLOBIN 26 PG (26.0-33.0); MEAN CORPUSCULAR HGB CONC 32 g/dl (31.0-36.0); MEAN CORPUSCULAR VOLUME 80 fL (80-96); MONOCYTES % (AUTO) 5.8 % (2.0-12.0); NEUTROPHILS # (AUTO) 13.8 /CMM (1.8-8.9); NEUTROPHILS % (AUTO) 78.9 % (43.0-81.0); PLATELET COUNT (AUTO) 544 /CMM (150-450); RDW COEFFICIENT OF VARIATION 22.4 (11.5-15.0); RED BLOOD CELL COUNT(AUTO) 5.61 MIL/uL (4.5-6.0); WHITE BLOOD COUNT (AUTO) 17.5 K/uL (4.3-11.0)
[2017-06-11 14:45] LABS: CALCIUM, SERUM 8.2 mg/dL (8.5-10.1); CREATININE 0.8 mg/dL (0.6-1.3); POTASSIUM 3.9 mmol/L (3.5-5.1)
[2017-06-11 14:50] LABS: ALBUMIN 3.5 g/dL (3.4-5.0); BILIRUBIN,TOTAL 0.4 mg/dL (0.2-1.0); TOTAL PROTEIN, SERUM 8.5 g/dL (6.4-8.2)
[2017-06-11 16:08] VITALS: BP 123/83
== END 2017-06-11 16:19 | disposition home or self-care (01) ==
LOC: ER 13:33
DX: R10.84 Generalized abdominal pain (principal); K59.4 Anal spasm; F17.200 Nicotine dependence, unspecified, uncomplicated; F15.10 Other stimulant abuse, uncomplicated; G82.20 Paraplegia, unspecified; Z71.6 Tobacco abuse counseling; Z79.82 Long term (current) use of aspirin; Z93.3 Colostomy status
CPT/HCPCS: 36415; 80053-TC; 85025-TC; A4362; A4606; Z7610

== ENCOUNTER 2017-06-11 23:56 | Emergency (ER) | payer MEDICAID ==
[~2017-06-11] VITALS: Ht 182.9 cm; Wt 113.4 kg
--- NOTE | 2017-06-12 | NUR ---
PT BB RA39 WITH [employer] FROM FRONT OF [employer]. C/C "I DON'T FEEL WELL." PT VERBALLY ABUSIVE TO [employer] OFFICERS, EMS PARAMEDICS, AND ER STAFF. PT SHEETED TO ER BED 15 BY PARAMEDICS. PT REFUSES VITALS AND REPEATEDLY STATES "GIVE ME MY PHONE; YOU GUYS STOLE MY PHONE!" EMS PARAMEDICS AND [employer] STATED THEY DID NOT SEE THE PT WITH A PHONE ON SCENE. SKIN WARM, DRY. NO RESPIRATORY DISTRESS, PT YELLING AT STAFF LOUDLY. AWAITING MD ALCALA AND FURTHER ORDERS.
--- NOTE | 2017-06-12 00:07 | NUR ---
DR. NGUYEN AT BEDSIDE FOR PT EVAL.
--- NOTE | 2017-06-12 02:13 | NUR ---
CALLED LAB FOR BLOOD DRAW.
[2017-06-12 02:26] LABS: BASOPHILS # (AUTO) 0.1 /CMM (0.0-0.2); EOSINOPHILS # (AUTO) 0.1 /CMM (0.0-0.7); EOSINOPHILS % (AUTO) 0.5 % (0.0-6.0); HEMATOCRIT 43 % (39-51); LYMPHOCYTES # (AUTO) 2.4 /CMM (0.8-4.8); LYMPHOCYTES % (AUTO) 18.2 % (20.0-44.0); MEAN CORPUSCULAR HEMOGLOBIN 26 PG (26.0-33.0); MEAN CORPUSCULAR HGB CONC 33 g/dl (31.0-36.0); MEAN CORPUSCULAR VOLUME 80 fL (80-96); MONOCYTES % (AUTO) 7.7 % (2.0-12.0); NEUTROPHILS # (AUTO) 9.6 /CMM (1.8-8.9); NEUTROPHILS % (AUTO) 72.6 % (43.0-81.0); PLATELET COUNT (AUTO) 493 /CMM (150-450); RDW COEFFICIENT OF VARIATION 24.1 (11.5-15.0); RED BLOOD CELL COUNT(AUTO) 5.42 MIL/uL (4.5-6.0); WHITE BLOOD COUNT (AUTO) 13.2 K/uL (4.3-11.0)
[2017-06-12 02:45] LABS: CALCIUM, SERUM 7.9 mg/dL (8.5-10.1); CREATININE 0.8 mg/dL (0.6-1.3); POTASSIUM 3.2 mmol/L (3.5-5.1)
[2017-06-12 02:58] LABS: ALBUMIN 3.5 g/dL (3.4-5.0); BILIRUBIN,TOTAL 0.2 mg/dL (0.2-1.0); TOTAL PROTEIN, SERUM 8.4 g/dL (6.4-8.2)
[2017-06-12 02:59] LABS: SALICYLATE 1.6 mg/dL (2.8-20.0)
--- NOTE | 2017-06-12 03:25 | NUR ---
URINE COLLECTED. CALLED LAB FOR COLLABORATIVE TEACHER.;
--- NOTE | 2017-06-12 10:50 | NUR ---
CALLED SISTER, LUCIO AT [phone], [facility], SHE DOES NOT WANT TO ACCEPT HIM SAYING "HE'S OLD AND I HAVE AKID TO TAKE CARE OF"
[2017-06-12 16:36] VITALS: BP 120/73
--- NOTE | 2017-06-12 16:36 | NUR ---
Note joneone in ED - 06/12/17 at 1637 by VENKATA IV removed. Catheter intact and site benign. Pressure and 4x4 applied to site. No bleeding noted.
--- NOTE | 2017-06-12 16:36 | NUR ---
Patient discharged to home in stable condition. Written and verbal after care instructions given. Patient verbalizes understanding of instruction.
== END 2017-06-12 16:38 | disposition home or self-care (01) ==
LOC: ER 23:57
DX: F29 Unspecified psychosis not due to a substance or known physiological condition (principal); E87.6 Hypokalemia; G82.20 Paraplegia, unspecified; Z79.82 Long term (current) use of aspirin; R74.0 Nonspecific elevation of levels of transaminase and lactic acid dehydrogenase [LDH]
CPT/HCPCS: 36415; 80048-TC; 80076-TC; 80305; 85025-TC; A4606; G0480; J1200; J1631; J2060; Z7610

== ENCOUNTER 2017-06-12 21:49 | Emergency (ER) | payer MEDICAID ==
[~2017-06-12] VITALS: Ht 172.7 cm; Wt 99.8 kg
--- NOTE | 2017-06-12 21:50 | NUR ---
PT BIBRA FROM HOME TO ER BED 11. PER REPORT, PT IS ETOH. DENIES ANY MEDICAL COMPLAINTS AT THIS TIME BUT ADMITS TO BEEN DRINKING. DENIES SI/HI. AWAITING MD ALCALA.
--- NOTE | 2017-06-12 22:29 | NUR ---
LIBRARY MEDIA SPECIALIST AT BEDSIDE FOR BLOOD DRAW.
[2017-06-12 22:38] LABS: BASOPHILS % (AUTO) 0.1 % (0.0-2.0); EOSINOPHILS % (AUTO) 0.2 % (0.0-6.0); HEMATOCRIT 43 % (39-51); HEMOGLOBIN 13.9 g/dL (13.5-17.5); LYMPHOCYTES # (AUTO) 1.1 /CMM (0.8-4.8); LYMPHOCYTES % (AUTO) 7.6 % (20.0-44.0); MEAN CORPUSCULAR HEMOGLOBIN 26 PG (26.0-33.0); MEAN CORPUSCULAR HGB CONC 32 g/dl (31.0-36.0); MEAN CORPUSCULAR VOLUME 80 fL (80-96); MONOCYTES # (AUTO) 1.3 /CMM (0.1-1.30); MONOCYTES % (AUTO) 9.4 % (2.0-12.0); NEUTROPHILS # (AUTO) 11.8 /CMM (1.8-8.9); NEUTROPHILS % (AUTO) 82.7 % (43.0-81.0); PLATELET COUNT (AUTO) 503 /CMM (150-450); RDW COEFFICIENT OF VARIATION 23.6 (11.5-15.0); RED BLOOD CELL COUNT(AUTO) 5.38 MIL/uL (4.5-6.0); WHITE BLOOD COUNT (AUTO) 14.3 K/uL (4.3-11.0)
[2017-06-12 22:51] LABS: CALCIUM, SERUM 8.6 mg/dL (8.5-10.1); CREATININE 0.6 mg/dL (0.6-1.3); POTASSIUM 3.4 mmol/L (3.5-5.1)
--- NOTE | 2017-06-12 23:57 | NUR ---
PATIENT'S SISTER LUCIO CALLED [phone]
--- NOTE | 2017-06-13 | NUR ---
DR CABRAL ON THE PHONE WITH MICHELLE'S SISTER LUCIO
[2017-06-13] MEDS ORDERED: LORAZEPAM INJ 2 MG/ML VIAL ONE ×2 (02:16→15:51)
[2017-06-13] MEDS ORDERED: LORAZEPAM INJ 2 MG/ML VIAL IM ONE ×2 (02:30→16:00)
--- NOTE | 2017-06-13 11:00 | NUR ---
ASSUME PT CARE. PT IS AWAKE. COOPERATIVE TO STAFF. STABLE VITALS. NEEDS ATTENDED. WILL CONT TO MONITOR.
--- NOTE | 2017-06-13 15:35 | NUR ---
PT NOW IS GETTING AGITATED. C/O DIFFUSE ABDOMINAL PAIN. DR SMITH MADE AWARE.
[2017-06-13] MEDS ORDERED: LORAZEPAM INJ 2 MG/ML VIAL IV ONE (16:00)
--- NOTE | 2017-06-13 22:06 | NUR ---
PT IS ASKING FOR LINENS TO BE CHANGED. EMT AT BED SIDE TO CHANGE LINENS.
--- NOTE | 2017-06-14 01:38 | NUR ---
PT IS ALSEEP IN ER BED, NAD NOTED, SKIN WARM AND DRY, RESP EVEN AND UNLABORED. WILL CONTINUE TO MONITOR
--- NOTE | 2017-06-14 04:03 | NUR ---
PATIENT IS RESTING IN ER BED, NAD NOTED, SKIN WARM AND DRY. WILL CONTINUE TO MONITOR
[2017-06-14] MEDS ORDERED: ACETAMINOPHEN 325 MG TABLET ONE (04:28)
[2017-06-14] MEDS ORDERED: ACETAMINOPHEN 325 MG TABLET PO ONE (04:30)
[2017-06-14] MEDS ORDERED: OLANZAPINE 10 MG VIAL IM ONE ×2 (07:23→07:30)
[2017-06-14] MEDS ORDERED: diphenhydrAMINE HCL 50 MG/ML VIAL ONE (07:23)
[2017-06-14] MEDS ORDERED: diphenhydrAMINE HCL 50 MG/ML VIAL IM ONE (07:30)
--- NOTE | 2017-06-14 09:42 | NUR ---
PT RESTING IN BED ER. ALERT ORIENTED.
--- NOTE | 2017-06-14 11:00 | NUR ---
ASSUME PT CARE. RESTING IN BED. STABLE VITALS. NEEDS ATTENDED. PROVIDED W/ NEW COLOSTOMY BAG. WILL CONTINUE TO MONITOR.
--- NOTE | 2017-06-14 11:53 | NUR ---
CALLED [facility] FOR [facility] 1230 TRIP # [id number]
--- NOTE | 2017-06-14 17:27 | NUR ---
PT NOW C/O DIFFUSE ABDOMIAL PAIN WORST ON COLOSTOMY SITE STATING 10/10.
[2017-06-14] MEDS ORDERED: LORAZEPAM INJ 2 MG/ML VIAL ONE (20:53)
--- NOTE | 2017-06-14 20:57 | NUR ---
PT IS AGITATED, YELLING AND CURSING AT STAFF. C/O ABDOMINAL PAIN. PT TRANSFERED TO ROOM 16. DR NGUYEN MADE AWARE. ATIVAN 2MG IM GIVEN TO R DELTOID. WILL CONTINUE TO MONITOR.
[2017-06-14] MEDS ORDERED: LORAZEPAM INJ 2 MG/ML VIAL IM ONE (22:00)
--- NOTE | 2017-06-15 00:25 | NUR ---
RECEIVED CALL FROM PT'S SISTER LUCIO. SHE STATED THE PT CAN BE SENT HOME AFTER 6PM WHEN SHE GETS HOME FROM WORK; NOBODY IS AVAILABLE DURING THE DAY TO UNLOCK THE DOOR FOR THE PT.
[2017-06-15] MEDS ORDERED: CLINDAMYCIN 900 MG in IV D5W 100 ML IV ONE (00:30)
--- NOTE | 2017-06-15 01:10 | NUR ---
PT SITTING UP IN BED WATCHING TV, ER MD AT BEDSIDE TO RE-EVAL PT. PT ASKING FOR PAIN MED. NO ORDER RECEIVED FROM ER MD AT THIS TIME.
--- NOTE | 2017-06-15 02:16 | NUR ---
PT ASLEEP, NO ACUTE DISTRESS NOTED, RESP EVEN AND UNLABORED. CALL LIGHT WITHIN REACH.
--- NOTE | 2017-06-15 04:56 | NUR ---
PT AAOX4 NO ACUTE DISTRESS NOTED, RESP EVEN AND UNLABORED. CALL OIGHT WITHIN REACH.
--- NOTE | 2017-06-15 06:33 | NUR ---
PT ASLEEP, NO ACUTE DISTRESS NOTED, RESP EVEN AND UNLABORED. CALL LIGHT WITHIN REACH.
[2017-06-15 06:38] VITALS: BP 130/81
--- NOTE | 2017-06-15 07:56 | NUR ---
PT ON BED, AWAKE. VSS
--- NOTE | 2017-06-15 09:48 | NUR ---
ROSITA MCBRIDEW, DAMIÁN MAYNARD AND THEODORE MAYNARD AT BEDSIDE FOR DISCHARGE PLANNING, WHEEL CHAIR PROVIDED. D/C TO WAITING ROOM RECOMMENDED BY [employer] LIEUTENANT TEAM.
--- NOTE | 2017-06-15 09:55 | NUR ---
UNABLE TO ADMINISTER CLINDAMYCIN IVPB, PATIENT REFUSED PIV
== END 2017-06-15 09:58 | disposition home or self-care (01) ==
LOC: ER 21:51
DX: F15.10 Other stimulant abuse, uncomplicated (principal); R10.9 Unspecified abdominal pain; G82.20 Paraplegia, unspecified; F17.200 Nicotine dependence, unspecified, uncomplicated; Z79.82 Long term (current) use of aspirin; Z93.3 Colostomy status
CPT/HCPCS: 36415; 80048; 80305; 85025; 96372 ×5; 99284; A4606; G0480; J1200; J2060 ×3; J3490; Z7610

== ENCOUNTER 2017-06-16 02:45 | Emergency (ER) | payer MEDICAID ==
[~2017-06-16] VITALS: Ht 182.9 cm; Wt 117.9 kg
--- NOTE | 2017-06-16 03:00 | NUR ---
37 YO MALE BB RA FROM HOME FOR ETOH INTOXICATION. PT IS ALERT X 3, CURSING AT SOH STAFF. PT IS REFUSING VS NOTIFIED. PT SKIN WARM AND DRY, RESP EVEN AND UNLABORED. WILL CONTINUE TO MONITOR.
[2017-06-16] MEDS ORDERED: HALOPERIDOL LACTATE INJ 5 MG/ML VIAL ONE (04:10)
--- NOTE | 2017-06-16 04:10 | NUR ---
MEDICATED PT ORDERED. WILL CONTINUE TO MONITOR
[2017-06-16] MEDS ORDERED: HALOPERIDOL LACTATE INJ 5 MG/ML VIAL IM ONE (04:30)
--- NOTE | 2017-06-16 04:35 | NUR ---
JAVA LEAD DEVELOPER AT BED SIDE FOR BLOOD DRAW
[2017-06-16 04:41] LABS: BASOPHILS # (AUTO) 0.1 /CMM (0.0-0.2); BASOPHILS % (AUTO) 0.5 % (0.0-2.0); EOSINOPHILS # (AUTO) 0.2 /CMM (0.0-0.7); EOSINOPHILS % (AUTO) 1.4 % (0.0-6.0); HEMATOCRIT 45 % (39-51); HEMOGLOBIN 14.6 g/dL (13.5-17.5); LYMPHOCYTES % (AUTO) 15.5 % (20.0-44.0); MEAN CORPUSCULAR HEMOGLOBIN 26 PG (26.0-33.0); MEAN CORPUSCULAR HGB CONC 33 g/dl (31.0-36.0); MEAN CORPUSCULAR VOLUME 81 fL (80-96); MONOCYTES # (AUTO) 0.7 /CMM (0.1-1.30); MONOCYTES % (AUTO) 5.2 % (2.0-12.0); NEUTROPHILS # (AUTO) 10.1 /CMM (1.8-8.9); NEUTROPHILS % (AUTO) 77.4 % (43.0-81.0); PLATELET COUNT (AUTO) 472 /CMM (150-450); RDW COEFFICIENT OF VARIATION 22.7 (11.5-15.0); RED BLOOD CELL COUNT(AUTO) 5.55 MIL/uL (4.5-6.0)
[2017-06-16 04:52] LABS: CALCIUM, SERUM 8.8 mg/dL (8.5-10.1); CREATININE 0.8 mg/dL (0.6-1.3)
[2017-06-16 04:58] LABS: ALBUMIN 3.3 g/dL (3.4-5.0); BILIRUBIN,TOTAL 0.2 mg/dL (0.2-1.0); TOTAL PROTEIN, SERUM 8.6 g/dL (6.4-8.2)
[2017-06-16 04:59] LABS: SALICYLATE 1.6 mg/dL (2.8-20.0)
--- NOTE | 2017-06-16 05:21 | NUR ---
PT TRANSPORTED TO CT VIA GURNEY BY RADIOLOGY TEAM
--- NOTE | 2017-06-16 05:54 | NUR ---
PATIENT IS RESTING IN ER BED, NAD NOTED, SKIN WARM AND DRY. PT IS ON GENERAL MANAGER ORACLE DATA CLOUD. WILL CONTINUE TO MONITOR
[2017-06-16] MEDS ORDERED: POTASSIUM CHLORIDE 20 MEQ TAB.PRT.SR PO ONE ×2 (07:00→07:51)
--- NOTE | 2017-06-16 08:08 | NUR ---
ASHLEY contacted Stacy Rodriguez at [facility]-Intensive Service Recipient and left her a voicemail message requesting a callback regarding referral.
--- NOTE | 2017-06-16 09:55 | NUR ---
SEEN AND EVALUATED BY MOSHE MAYNARD
--- NOTE | 2017-06-16 11:02 | NUR ---
SERENITY FROM MOTOR VEHICLE SALESPERSON AT BEDSIDE FOR EVAL
[2017-06-16] MEDS ORDERED: ONDANSETRON 4 MG TAB.RAPDIS PO ONE (11:30)
[2017-06-16] MEDS ORDERED: ONDANSETRON 4 MG TAB.RAPDIS ONE (11:36)
--- NOTE | 2017-06-16 11:45 | NUR ---
ASHLEY and pillowcase cutter Helene met with pt. to discuss discharge plan. ASHLEY and Helene are familiar with pt. from frequent admissions into the ED. Pt. is alert and oriented x 3. Pt. appears belligerent and is verbally abusive to staff. Pt. complained of being nauseous. SW informed pt. that the doctor is aware and will be giving him some medication for his nausea. SW gave patient homeless resources, list of mental health clinics and substance abuse treatment resources. Pt. gave ASHLEY the following address to be discharged to; [address] [place] [address]. [place] [id number]. Pt. will go via taxi to the aforementioned address. Pt. was evaluated by crisis team and did not meet criteria for [id number].
[2017-06-16 12:10] VITALS: BP 133/78
== END 2017-06-16 12:19 | disposition home or self-care (01) ==
LOC: ER 02:48
DX: R21 Rash and other nonspecific skin eruption (principal); F15.10 Other stimulant abuse, uncomplicated; G82.20 Paraplegia, unspecified; K43.5 Parastomal hernia without obstruction or gangrene; Z79.82 Long term (current) use of aspirin; F10.129 Alcohol abuse with intoxication, unspecified
CPT/HCPCS: 36415; 51702; 80048; 80076; 80305; 80329; 85025; 96372; 99284; A4606; G0480 ×2; J1630; Q0162; Z7610 ×2